=== PATIENT | female | born 1965 | race African-American/Black ===

== ENCOUNTER 2017-10-08 09:21 | Outpatient (CLI) | payer MEDICAID, SELFPAY ==
[2017-10-08 10:15] LABS: Abs Immature Grans 0.01 k/cumm (0.0-0.09); Absolute Basophil Count 0.05 k/cumm (0.0-0.2); Absolute Eosinophil Count 0.46 k/cumm (0.0-0.7); Absolute Lymphocyte Count 3.14 k/cumm (1.2-3.4); Absolute Monocyte Count 0.46 k/cumm (0.11-0.7); Absolute Neutrophil Count 2.39 k/cumm (1.2-6.7); Basophils % 0.8; Eosinophils % 7.1; HCT 38.7 % (36.0-46.0); HGB 12.7 g/dL (12.0-15.5); Immature Grans % 0.2; Lymphocytes % 48.2; Mean Corp. HGB Concentration 32.8 g/dL (32.0-36.0); Mean Corpuscular Hemoglobin 29.5 pg (27.0-33.0); Mean Platelet Volume 11.3 fL (8.0-11.0); Monocytes % 7.1; Neutrophils % 36.6; Platelet Count 236 x1000/uL (130-400); White Blood Cell Count 6.51 k/cumm (4.4-10.8)
[2017-10-08 11:44] LABS: ALT 23 U/L (12-78); AST 15 U/L (15-37); Albumin 3.6 g/dL (3.4-5.0); Alkaline Phosphatase 97 U/L (46-116); Anion Gap 6.1 mmol/L (3-11); BUN 12 mg/dL (7-18); Bilirubin, Total 0.6 mg/dL (0.2-1.0); CO2 30.9 mmol/L (21.0-32.0); CREATININE 0.91 mg/dL (0.55-1.02); Calcium 8.9 mg/dL (8.5-10.1); Chloride 106 mmol/L (98-107); Cholesterol 200 mg/dL (50-200); Glucose 103 mg/dL (70-100); HDL Cholesterol 48 mg/dL (40-60); LDL CHOLESTEROL 142 mg/dL (<100); Potassium 3.7 mmol/L (3.5-5.1); Sodium 143 mmol/L (136-145); TSH (W/Ref FT4) 1.45 uIU/mL (0.358-3.74); Total Protein 7.3 g/dL (6.4-8.2); Triglyceride 96 mg/dL (30-150); Vitamin B12 807 pg/mL (193-986)
[2017-10-08 13:13] LABS: Hemoglobin A1C 6.1 % (4.5-6.2)
[2017-10-09 12:50] LABS: Albumin 55.3 % (55.8-66.1)
== END 2017-10-08 09:22 ==
PROVIDERS: PCP Nurse Practitioner Family; Visit Provider Nurse Practitioner Family
DX: I10 Essential (primary) hypertension (principal); R53.83 Other fatigue; R20.2 Paresthesia of skin; Z13.220 Encounter for screening for lipoid disorders; Z13.1 Encounter for screening for diabetes mellitus
CPT/HCPCS: 36415; 80053; 80061; 83721; 82607; 83036; 84165; 84443; 85025

== ENCOUNTER 2017-10-26 08:12 | Outpatient (CLI) | payer MEDICAID, SELFPAY ==
--- NOTE | 2017-10-26 16:00 | SATEXT_ITS ---
Assessment: Ms. Sal presents for nutritional counseling for impaired fasting glucose. She reports that since she has found out that she has prediabetes she has made some changes in her eating and physical activity. She reports that she used to eat large portions and not many vegetables proportionately on her plate. Her dietary recall shows that some days she has a large bagel for breakfast with peanut butter, then a bagel for lunch, and spaghetti with vegetables for supper. She drinks cucumber juice, green tea, and water. 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 She has also been trying to get her heart rate up for about 20 minutes in the morning. Nutritional Diagnosis: Inappropriate intake of carbohydrates as evidenced by dietary recall. Intervention: We discussed that although she does not have diabetes, her body is insulin resistant and that she may do better with a carbohydrate consistent nutrition therapy. She also may do better with a more moderate carbohydrate intake. We discussed that it may help to regulate her appetite as well. We reviewed carbohydrate counting. Suggested that she work towards keeping her carbohydrate intake to 30 grams per meal. We talked about alternatives to bagels in the morning and we outlined what her meals could look like with 30 grams of carbohydrates. Fortunately, she likes vegetables, so she has many options to fill up her plate. Her is a vegan so she states she may steer herself more towards vegan eating too. I endorsed vegan eating as a very healthy way of eating for prediabetes and overall general health. Monitoring and Evaluation: Ms. Sal will self monitor her progress and will evaluate her nutrition care plan needs. She is encouraged to follow up with me as needed. She has my contact information. Thank you for the referral.
== END 2017-10-26 08:32 ==
PROVIDERS: PCP Nurse Practitioner Family; Visit Provider Dietitian, Registered
DX: R73.01 Impaired fasting glucose (principal); Z71.3 Dietary counseling and surveillance
CPT/HCPCS: 97802

== ENCOUNTER 2017-10-26 08:16 | Outpatient (CLI) | payer MEDICAID, SELFPAY ==
[2017-10-26 09:15] LABS: Anion Gap 6.6 mmol/L (3-11); BUN 20 mg/dL (7-18); CO2 34.4 mmol/L (21.0-32.0); CREATININE 1.01 mg/dL (0.55-1.02); Calcium 9.3 mg/dL (8.5-10.1); Chloride 102 mmol/L (98-107); Estimated GFR 58.02 (mL/min/1.73m2); Glucose 115 mg/dL (70-100); Potassium 3.3 mmol/L (3.5-5.1); Sodium 143 mmol/L (136-145)
== END 2017-10-26 08:36 ==
PROVIDERS: PCP Nurse Practitioner Family; Visit Provider Nurse Practitioner Family
DX: I10 Essential (primary) hypertension (principal)
CPT/HCPCS: 36415; 80048

== ENCOUNTER 2017-10-31 12:26 | Outpatient (CLI) | payer MEDICAID, SELFPAY ==
[2017-11-01 13:54] LABS: Prolactin 4.4 ng/ml
== END 2017-10-31 12:46 ==
PROVIDERS: PCP Nurse Practitioner Family; Visit Provider Nurse Practitioner Family
DX: N64.52 Nipple discharge (principal)
CPT/HCPCS: 36415; 84146

== ENCOUNTER 2018-03-11 09:47 | Day surgery (SDC) | payer MEDICAID, SELFPAY ==
--- NOTE | 2018-03-11 06:38 | COLE_ITS ---
Date of service: 03/11/18 Time of Service: 11:07 Colonoscopy Report Date of procedure: 03/11/18 Pre-op diagnosis general: Colon Cancer Screening Post-op diagnosis procedure note: other (cecal polyp) Procedure: Colonoscopy with polypectomy by cold forceps Surgeon: Yuliet Reis Anesthesia proc note operative: MAC (Sergey Lopez, REEL AND REWINDER OPERATOR/ ASA 2) Estimated blood loss (mL): 2 Pathology: other (cecal polyp) Complications: None Disposition: same day Indications: Mrs Sal is a pleasant 52 year old female who was seen in the office for her first screening colonoscopy. Risks, benefits and complications have been reviewed. Complications include but are not limited to bleeding, pain, perforation, missed small lesion/polyp, sore throat, aspiration and adverse reaction to the medications. Questions were entertained and answered to their satisfaction and they wished to proceed. No guarantees were given or implied. Prep: Miralax/Dulcolax Procedure Start Time: 11:07 Procedure End Time: 11:29 Retraction Time: 12 minutes Findings: One very small polyp in the cecum Procedure Description: After informed consent was obtained the patient was taken to the procedure room and placed in a left decubitous position. Monitors were applied and a time out was done. The patients name, date of , procedure, allergies to medications and metal in their body was reviewed. The patient was then sedated. Once sedated and comfortable a rectal exam was done. External exam was normal. Internal exam revealed a normal sphincter tone and no palpable masses. The scope was then introduced and retro-flexed. No internal hemorrhoids were identified. The scope was then advanced to the cecum without difficulty. The TI and appendiceal orifice were identified. The prep was adequate. The scope was then slowly retracted over 12 minutes back into the rectum. Polyps were removed in the cecum. The scope was removed and the patient was woken up and taken back to Same day surgery in stable condition. The patient tolerated the procedure well and there were no immediate complications. Follow up: The patient should follow up in 5 years unless they develop changes in bowel habits or other new gastrointestinal complaints.
--- NOTE | 2018-03-11 06:38 | W.PM.DSUDISC ---
Discharge Plan Disposition Patient Disposition: HOME Condition: Good Discharge Details Reason For Visit: Colon Cancer Screening Attending Provider: Yuliet Reis Primary Care Provider: Angela Gleason Home Meds and New Rx's Prescriptions: Continued Centrum 18-400 mg-mcg tablet 1 tab PO DAILY RF: 0 ginseng 100 mg capsule 100 mg PO PRN RF: 0 hydrochlorothiazide 25 mg tablet 25 mg PO DAILY Qty: 90 RF: 0 aspirin [Aspir-81] 81 MG tablet,delayed release (DR/EC) 81 mg PO DAILY RF: 0 cholecalciferol (vitamin D3) [Vitamin D3] 2,000 UNIT tablet 2,000 unit PO DAILY RF: 0 Discontinued bisacodyl [Dulcolax (bisacodyl)] 5 mg tablet,delayed release (DR/EC) 5 mg PO ONCE Qty: 4 RF: 0 polyethylene glycol 3350 17 gram/dose powder 255 g PO ONCE Qty: 255 RF: 0 Discharge Instructions Instructions: Colonoscopy (DC), Colorectal Polyps (DC) Additional Instructions: Findings: one small polyp Follow up:5 years Please call if you develop: fevers >101.5 Nausea or Vomiting Abdominal pain that is not transient DAY SURGERY UNIT POST COLONOSCOPY INSTRUCTIONS 1. Because there will be medication in your system for the next 24 hours, you may feel a little sleepy. Your coordination will be affected. Therefore: a. Do not drive or operate dangerous equipment for 24 hours. b. Do not drink alcohol beverages for 24 hours (not even beer). c. Plan to go home and rest for the day. 2. Generally there are no restrictions on your activity after a day or so has gone by, but you may feel a bit fatigued for a few days. 3 After you arrive home you may have a light meal and return to a normal diet as you can tolerate it without feeling sick to your stomach. 4. After surgery, you may feel pain or discomfort. This should be only transient, but if it persists please contact your doctor. 5. If there are any questions regarding the findings of your procedure, please feel free to contact your doctor. 6. If you are unable to contact your doctor with a problem, contact the hospital at [phone]. 7. Continue all your regular medications unless directed otherwise. I understand the above instructions and have no questions. Signature of Patient or Responsible Adult Escort Date/Time Name of Responsible Adult Escort Signature of Nurse Date/Time Activity:: Activity as Tolerated Diet:: As Tolerated Discharge Orders Discharge Orders: Discharge Order (Routine); Ordered 03/11/18 Ordered By: Yuliet Reis DS: Diagnosis Discharge Diagnosis (1) S/P colonoscopy: Status: Acute (2) Polyp of cecum: Status: Acute
[2018-03-11 10:15] VITALS: BP 171/84; PULSE 58; RESP 16; TEMP 35.6; O2SAT 100
[2018-03-11] MEDS: Lactated Ringers 1,000 ML 80 ML IV (10:53)
--- NOTE | 2018-03-11 11:19 | BOWEL_PTH ---
PATIENT: Kyree Yao LOC: [facility] U#:[id number] AGE/SX: 52/F ROOM: RE03/11/[address]: Yuliet Reis MD : [id number] BED: DIS: 03/11/2018 SPEC #: [id number] RECD: 03/11/18 12:27 STATUS: ARTEM REQ #: [id number] DANIELE: 03/11/18 11:[address]: Yuliet Reis DEPT: Surgical Specimen RECD BY: Alejandra Seals ENTERED: 03/11/18 12:27 SP TYPE: Bowel OTHR DR: Angela Gleason APRN Tissues: 1 - BIOPSY BOWEL Procedures: GROSS AND MICRO LEVEL 4 Comments: [id number]
[2018-03-11 13:44] VITALS: BP 139/73; PULSE 54; RESP 14; TEMP 35.9; O2SAT 97
== END 2018-03-11 13:42 | disposition home or self-care (01) ==
LOC: SUR 09:48
PROVIDERS: PCP Nurse Practitioner Family; Visit Provider Surgery
PROC: 0DJD8ZZ Inspection of Lower Intestinal Tract, Via Natural or Artificial Opening Endoscopic (ICD-10-PCS; CPT 45378; principal; 2018-03-11 10:45)
DX: Z12.11 Encounter for screening for malignant neoplasm of colon (principal); D12.0 Benign neoplasm of cecum; I10 Essential (primary) hypertension; G47.33 Obstructive sleep apnea (adult) (pediatric)
CPT/HCPCS: 45380; 88305; J3010

== ENCOUNTER 2018-03-21 01:53 | Outpatient (CLI) | payer MEDICAID, SELFPAY ==
--- NOTE | 2018-03-21 09:00 | DI.RAD_ITS ---
SYMPTOMS/DIAGNOSIS: TENDER STERNAL/CHEST WALL MASS, FURTHER EVALUATION, R22.2, M89.8 PA AND LATERAL CHEST: The heart is normal in size. The lungs are clear. The mediastinal structures and pleura appear intact. CONCLUSION: Normal chest. The patient reportedly has a palpable chest wall abnormality anterior and there is a BB marker placed. If there is a clinical suspicion of a chest wall mass, additional evaluation with a chest CT would be recommended.
== END 2018-03-21 02:13 ==
PROVIDERS: PCP Nurse Practitioner Family; Visit Provider Nurse Practitioner Family
DX: R22.2 Localized swelling, mass and lump, trunk (principal)
CPT/HCPCS: 71046

== ENCOUNTER 2018-03-25 01:32 | Outpatient (CLI) | payer MEDICAID, SELFPAY ==
--- NOTE | 2018-03-25 09:45 | DI.US_ITS ---
SYMPTOM/DIAGNOSIS: RUQ PAIN, R/O HEPATOBILIARY PATHOLOGY R10.11 ABDOMINAL ULTRASOUND: Routine examination. No priors. The visualized liver parenchyma is normal in appearance. There is no evidence of cholelithiasis. The common bile duct is of normal diameter. The pancreas and spleen appear intact. No renal abnormality is seen. The abdominal aorta is of normal diameter. Normal appearance of IVC. CONCLUSION: Normal abdominal ultrasound.
== END 2018-03-25 01:52 ==
PROVIDERS: PCP Nurse Practitioner Family; Visit Provider Nurse Practitioner Family
DX: R10.11 Right upper quadrant pain (principal)
CPT/HCPCS: 76700

== ENCOUNTER 2018-03-26 01:58 | Outpatient (CLI) | payer MEDICAID, SELFPAY ==
--- NOTE | 2018-03-26 13:30 | DI.COMBO_ITS ---
SYMPTOM/DIAGNOSIS: BILAT MILKY DISCHARGE, N64.52, ? CA MAMMOGRAMS AND BILATERAL BREAST ULTRASOUND: Mammograms were interpreted according to the usual protocol including computer analysis with CAD system, tomosynthesis and C view imaging. No priors for comparison. Breast density, Category C. No suspicious masses or microcalcifications are seen. The skin and axilla are unremarkable. A bilateral ultrasound was performed in the retroareolar regions. There are mildly dilated ducts seen in the retroareolar region of the breast bilaterally. No filling defects are seen within the visualized ducts. No cystic or solid masses are seen sonographically. IMPRESSION: No definite evidence for malignancy. If there is further evaluation warranted, ductography may be considered. Category 1. The findings were discussed with the patient on the date of the examination. SA ASSESSMENT OF FINDINGS: Negative. Category 1. Patient will receive a letter notifying them of these results. Bi-RADS category C. The breasts are heterogeneously dense, which may obscure small masses.
== END 2018-03-26 02:18 ==
PROVIDERS: PCP Nurse Practitioner Family; Visit Provider Nurse Practitioner Family
DX: N64.52 Nipple discharge (principal); N60.81 Other benign mammary dysplasias of right breast; N60.82 Other benign mammary dysplasias of left breast
CPT/HCPCS: 76642; 77062; 77066; G0279

== ENCOUNTER 2018-03-28 11:08 | Outpatient (CLI) | payer MEDICAID, SELFPAY ==
[2018-03-28 11:37] LABS: Abs Immature Grans 0.01 k/cumm (0.0-0.09); Absolute Basophil Count 0.06 k/cumm (0.0-0.2); Absolute Eosinophil Count 0.25 k/cumm (0.0-0.7); Absolute Lymphocyte Count 3.07 k/cumm (1.2-3.4); Absolute Monocyte Count 0.35 k/cumm (0.11-0.7); Absolute Neutrophil Count 2.76 k/cumm (1.2-6.7); Basophils % 0.9; Eosinophils % 3.8; HGB 12.2 g/dL (12.0-15.5); Immature Grans % 0.2; Lymphocytes % 47.2; Mean Corpuscular Hemoglobin 29.1 pg (27.0-33.0); Mean Corpuscular Volume 88.3 fL (80-95); Mean Platelet Volume 10.7 fL (8.0-11.0); Monocytes % 5.4; Neutrophils % 42.5; Platelet Count 260 x1000/uL (130-400); RBC 4.19 m/cumm (4.00-5.20); RBC Distribution Width 13.3 % (11.7-14.6)
[2018-03-28 12:44] LABS: ALT 16 U/L (12-78); AST 13 U/L (15-37); Albumin 3.6 g/dL (3.4-5.0); Alkaline Phosphatase 94 U/L (46-116); Anion Gap 6.9 mmol/L (3-11); BUN 16 mg/dL (7-18); Bilirubin, Total 0.3 mg/dL (0.2-1.0); CO2 34.1 mmol/L (21.0-32.0); CREATININE 0.86 mg/dL (0.55-1.02); Chloride 102 mmol/L (98-107); Glucose 108 mg/dL (70-100); Lipase 101 U/L (73-393); Potassium 3.4 mmol/L (3.5-5.1); Sodium 143 mmol/L (136-145); Total Protein 7.3 g/dL (6.4-8.2)
[2018-03-28 13:11] LABS: Calcium 9.2 mg/dL (8.5-10.1)
== END 2018-03-28 11:28 ==
PROVIDERS: PCP Nurse Practitioner Family; Visit Provider Nurse Practitioner Family
DX: R10.11 Right upper quadrant pain (principal)
CPT/HCPCS: 36415; 80053; 83690; 85025

== ENCOUNTER 2018-04-11 01:01 | Outpatient (CLI) | payer MEDICAID, SELFPAY ==
--- NOTE | 2018-04-11 07:43 | DI.CT_ITS ---
SYMPTOMS/DIAGNOSIS: BOTTOM STERNAL VS UPPER ABD PALPABLE MASS, EPIGASTRIC ABD PAIN, BREAST DISCHARGE, MASS STERNUM, ABD WALL MASS, R10.13, M64.52, R19.06, M89.9 CT OF THE CHEST, ABDOMEN AND PELVIS: A marker was placed over the area of the palpable abnormality at the lower sternum. No mass is identified. The xiphoid projects anteriorly. No abdominal wall hernias are seen. The heart size is normal. No mass, infiltrate, pleural or pericardial effusion is seen. The lungs are expiratory. A small circumscribed nodule is seen in the right upper lobe, likely a granuloma. The liver, gallbladder, spleen, pancreas, kidneys and adrenals are unremarkable. No bowel dilatation or inflammatory changes are seen. The uterus is enlarged and heterogeneous. This could represent fibroids. The ovaries and bladder are unremarkable. IMPRESSION: 1. The xiphoid process projects anteriorly which may account for the perceived palpable abnormality. There is no evidence of mass. 2. Enlarged heterogenous uterus likely reflecting fibroids.
[2018-04-11] MEDS: Breeza Beverage 473 ML BTL PO ×2 (09:04→09:05)
[2018-04-11] MEDS: Omnipaque 350 MG/ML 100 ML BTL IV (09:05)
[2018-04-11] MEDS: Omnipaque 350 MG/ML 50 ML BTL PO (09:05)
== END 2018-04-11 01:21 ==
PROVIDERS: PCP Nurse Practitioner Family; Visit Provider Nurse Practitioner Family
DX: R10.13 Epigastric pain (principal); R19.06 Epigastric swelling, mass or lump; N64.52 Nipple discharge; M89.9 Disorder of bone, unspecified; R91.1 Solitary pulmonary nodule; N85.2 Hypertrophy of uterus
CPT/HCPCS: 74177; 71260; J3490; Q9967

== ENCOUNTER 2018-04-13 15:51 | Emergency (ER) | payer MEDICAID, SELFPAY ==
[2018-04-13 15:55] VITALS: BP 165/81; PULSE 75; RESP 16; TEMP 36.6; O2SAT 100
--- NOTE | 2018-04-13 16:15 | ED.GENADUL_ITS ---
Discharge Plan Disposition Patient Disposition: HOME Condition: Stable Discharge Details Chief Complaint: Cellulitis Clinical Impression: Candidal dermatitis Primary Care Provider: Angela Gleason ED Provider: Brian Garland Home Meds and New Rx's Prescriptions: No Action Centrum 18-400 mg-mcg tablet 1 tab PO DAILY RF: 0 ginseng 100 mg capsule 100 mg PO PRN RF: 0 hydrochlorothiazide 25 mg tablet 25 mg PO DAILY Qty: 90 RF: 0 aspirin [Aspir-81] 81 MG tablet,delayed release (DR/EC) 81 mg PO DAILY RF: 0 cholecalciferol (vitamin D3) [Vitamin D3] 2,000 UNIT tablet 2,000 unit PO DAILY RF: 0 Discharge Instructions Instructions: Skin Yeast Infection (ED) Additional Instructions: Please use the provided cream on the affected area twice daily for the next week. Return immediately to the emergency department for any significant worsening of your symptoms, fever chills, or further concerns. If not improving over the next couple days on the medication but no significant worsening of symptoms it is recommended that you follow-up with your primary care provider for reassessment Referrals: Angela Gleason, DIGITAL PRE PRESS OPERATOR [Primary Care Provider] - (As needed for reassessment) Discharge Data Discharge Date/Time-TO BE ENTERED AT DEPARTURE: 04/13/18 17:06 Medical Decision Making Patient presenting to the emergency department for chief complaint of upper thigh and lower abdominal rash. Patient states that this started approximately 3 days ago and is itching and burning. Patient denies any new soaps lotions or medications, patient denies any vaginal or urinary complaints, no nausea vomiting diarrhea. Physical exam shows erythema to the anterior aspects of the thighs and suprapubic region also underneath abdominal fold. No well demarcation is noted and no other findings are seen on exam with normal external genitalia. Findings are suggestive of candidal dermatitis. Fingerstick was performed and no significant hyperglycemia is noted. Patient was prescribed clotrimazole to use on area of discomfort twice a day for the next week and to return for any new or significant worsening of symptoms or to follow-up with primary care for reassessment. Return precautions were discussed. After discussion of diagnosis and plan of care patient has no further needs, questions, or concerns and states clear understanding to return to the emergency department for any worsening symptoms. HPI General Mode of arrival: ambulatory . Date/Time Provider Initiated Documentation: 04/13/18 15:52 . Limitations to Documentation: no limitations . Information obtained by: patient and RN notes reviewed . History of Present Illness 52 year old F presents to the emergency department with the chief complaint of rash, described as mild, with intensity rated at 5. Quality is described as burning, and is localized to the genitals (groin and superpubic). Patient started experiencing this day(s) (3) and it has been c onstant. Patient did receive the following treatments prior to arrival, none Related Data Home Medications Medication Instructions Recorded Confirmed aspirin [Aspir 81] 81 mg PO DAILY 05/18/17 04/13/18 cholecalciferol (vitamin D3) 2,000 unit PO DAILY 05/18/17 04/13/18 [Vitamin D3] multivitamin-ferrous 1 tab PO DAILY 10/31/17 04/13/18 fumarate-folic acid 18 mg-400 mcg tablet ginseng 100 mg capsule 100 mg PO PRN cap 01/30/18 04/13/18 hydrochlorothiazide 25 mg tablet 25 mg PO DAILY #90 tab-cap 02/27/18 04/13/18 Previous Rx's Medication Instructions Recorded hydrochlorothiazide 25 mg tablet 25 mg PO DAILY #90 tab-cap 02/27/18 Allergies Allergy/AdvReac Type Severity Reaction Status Date / Time acetaminophen [From Tylenol] AdvReac Intermediate Headache/[place] Verified 04/13/18 16:00 Tight extra strength General Stated Complaint: Cellulitis AISHA: 4 Review of Systems Constitutional Denies chills and Denies fever(s) ENT Denies lip swelling, Denies throat swelling and Denies tongue swelling Cardiovascular Denies chest pain and Denies dyspnea Respiratory Denies dyspnea Gastrointestinal Denies abdominal pain Integumentary/Breasts Reports as per HPI and Reports pruritus Allergic/Immunologic Denies lip swelling, Denies throat swelling and Denies tongue swelling [facility] Medical History Polyp of cecum (Inactive ~03/11/18) Witnessed apneic spells (Chronic 10/03/17) Snoring (Chronic 10/03/17) IFG (impaired fasting glucose) (Chronic 10/10/17) Hyperlipidemia (Chronic 10/10/17) Essential hypertension (Chronic) Dysmenorrhea (Chronic) Dysgeusia (Chronic) Diffuse cystic mastopathy of both breasts (Chronic) Depression with anxiety (Chronic) Chronic tension type headache (Chronic) Anxiety and depression Chronic headaches Dysmenorrhea HTN (hypertension) Surgical History S/P colonoscopy (Resolved ~03/11/18) Family History Mother Diabetes Essential hypertension Father Heart disease Sister Neoplasm Sister No problems noted. Brother No problems noted. Brother No problems noted. Daughter Heart disease Social History adopted: No caregiver/support person: No foster care: No household members: spouse lives independently: Yes number of children: 3 highest education level completed: 11th grade service: No current occupational status: employed current occupation: House cleaning pets and animals: No Hx Recent Travel: No sexually active: Yes do you think of yourself as: straight/heterosexual current gender identity: female well-balanced diet: daily or most days what type of physical activity do you participate in: walking duration: 15-30 minutes/day Smoking and Tabacco status: Never second hand exposure: Yes alcohol intake: former substance use type: does not use Exam Const General: cooperative, comfortable and no acute distress Orientation: alert and awake HENMT Face and sinus: normal facial exam Resp Effort & Inspection: normal respiratory effort and able to speak in complete sentences External Female Exam: external appearance normal, no erythema, no tenderness externally, no external swelling and no lesions Skin General skin exam: erythema (To superior aspects of the thighs and underneath the abdominal fold) Course Vital Signs Temperature 36.6 C 04/13/18 15:55 Pulse 75 04/13/18 15:55 Respiratory Rate 16 04/13/18 15:55 Blood Pressure 165/81 H 04/13/18 15:55 Pulse Oximetry 100 04/13/18 15:55 Temperature 36.6 C 04/13/18 15:55 Temperature Source Skin 04/13/18 15:55 Pulse 75 04/13/18 15:55 Respiratory Rate 16 04/13/18 15:55 Respiratory Effort Non-Labored 04/13/18 15:59 Blood Pressure 165/81 H 04/13/18 15:55 Pulse Oximetry 100 04/13/18 15:55 Pain Level 5 04/13/18 15:55
[2018-04-13] MEDS: Clotrimazole 1% 15 GM TUBE TP (16:48)
== END 2018-04-13 17:06 | disposition home or self-care (01) ==
PROVIDERS: Emergency Provider Nurse Practitioner Family; PCP Nurse Practitioner Family
DX: B37.2 Candidiasis of skin and nail (principal); I10 Essential (primary) hypertension
CPT/HCPCS: 36416; 82962; 99283

== ENCOUNTER 2018-07-05 09:22 | Outpatient (CLI) | payer MEDICAID, SELFPAY ==
[2018-07-05 10:05] LABS: HCT 38.6 % (36.0-46.0); HGB 12.7 g/dL (12.0-15.5)
[2018-07-05 12:49] LABS: Potassium 2.9 mmol/L (3.5-5.1)
== END 2018-07-05 09:42 ==
PROVIDERS: PCP Nurse Practitioner Family; Visit Provider Nurse Practitioner Family
DX: E61.1 Iron deficiency (principal); E87.6 Hypokalemia
CPT/HCPCS: 36415; 84132; 85014; 85018

== ENCOUNTER 2018-07-11 13:36 | Outpatient (CLI) | payer MEDICAID, SELFPAY | END 2018-07-11 13:56 | PROVIDERS: PCP Nurse Practitioner Family; Visit Provider Nurse Practitioner Family | DX: E87.6 Hypokalemia (principal) | CPT/HCPCS: 36415; 82950; 84132 ==

== ENCOUNTER 2018-08-15 19:42 | Emergency (ER) | payer MEDICAID, SELFPAY ==
[2018-08-15] VITALS (32 sets, daily range): BP systolic 99–169; BP diastolic 50–127; PULSE 70–133; RESP 10–48; TEMP 36.7; O2SAT 90–100
[2018-08-15] MEDS: Haloperidol 5 MG/ML VIAL IM/IV (19:50)
[2018-08-15] MEDS: LORazepam 2 MG/ML VIAL (19:50)
[2018-08-15] MEDS: Normal Saline 1,000 ML 1000 ML IV (20:05)
[2018-08-15] MEDS: LORazepam 2 MG/ML VIAL IVP (20:25)
[2018-08-15] MEDS: diphenhydrAMINE 50 MG/ML VIAL IM (20:34)
[2018-08-15 20:50] LABS: Abs Immature Grans 0.02 k/cumm (0.0-0.09); Absolute Basophil Count 0.06 k/cumm (0.0-0.2); Absolute Eosinophil Count 0.25 k/cumm (0.0-0.7); Absolute Lymphocyte Count 8.04 k/cumm (1.2-3.4); Absolute Neutrophil Count 2.71 k/cumm (1.2-6.7); Basophils % 0.5; Eosinophils % 2.1; HCT 39.6 % (36.0-46.0); Immature Grans % 0.2; Lymphocytes % 68.9; Mean Corp. HGB Concentration 32.8 g/dL (32.0-36.0); Mean Corpuscular Hemoglobin 28.6 pg (27.0-33.0); Mean Corpuscular Volume 87.2 fL (80-95); Mean Platelet Volume 11.3 fL (8.0-11.0); Monocytes % 5.1; Neutrophils % 23.2; Platelet Count 262 x1000/uL (130-400); RBC 4.54 m/cumm (4.00-5.20); RBC Distribution Width 13.8 % (11.7-14.6); White Blood Cell Count 11.67 k/cumm (4.4-10.8)
[2018-08-15 21:22] LABS: Salicylate < 2.8 mg/dL (2.8-20.0)
[2018-08-15 21:26] LABS: ALT 27 U/L (12-78); AST 11 U/L (15-37); Albumin 3.9 g/dL (3.4-5.0); Alkaline Phosphatase 110 U/L (46-116); Anion Gap 13.9 mmol/L (3-11); BUN 22 mg/dL (7-18); Bilirubin, Total 0.4 mg/dL (0.2-1.0); CO2 26.1 mmol/L (21.0-32.0); CREATININE 1.36 mg/dL (0.55-1.02); Calcium 9.6 mg/dL (8.5-10.1); Chloride 100 mmol/L (98-107); Estimated GFR 40.99 (mL/min/1.73m2); Glucose 179 mg/dL (70-100); Sodium 140 mmol/L (136-145); Total Protein 8.1 g/dL (6.4-8.2)
--- NOTE | 2018-08-15 21:37 | ED.GENADUL_ITS ---
Discharge Plan Disposition Patient Disposition: HOME Condition: Improving Discharge Details Chief Complaint: OD/Poison Clinical Impression: Acute delirium, Agitation, Substance abuse, Acute hypokalemia Primary Care Provider: Angela Gleason ED Provider: Cuate Rodriguez Home Meds and New Rx's Prescriptions: No Action potassium chloride 20 mEq tablet extended release 20 meq PO DAILY Qty: 14 RF: 0 hydrochlorothiazide 25 mg tablet 25 mg PO DAILY Qty: 90 RF: 0 aspirin [Aspir-81] 81 MG tablet,delayed release (DR/EC) 81 mg PO DAILY RF: 0 cholecalciferol (vitamin D3) [Vitamin D3] 2,000 UNIT tablet 2,000 unit PO DAILY RF: 0 Discharge Instructions Additional Instructions: Please do not use drugs. Please contact your primary care physician to arrange follow-up. Be sure to review your medications with your doctor. Return to the ER for any worsening or new concerning symptoms. Referrals: Angela Gleason NP [Primary Care Provider] - Discharge Data Discharge Date/Time-TO BE ENTERED AT DEPARTURE: 08/16/18 11:48 Medical Decision Making <Tristan Stevens DO - Last Filed: 08/18/18 09:01> This is a 52-year-old -[place] female who presents today for evaluation of agitated delirium. She and edible drug earlier today while at a alliance party, her warned her not to but she did in spite of his warnings. Over the next 2 to 3 hours she became notably agitated and delirious, by the time she arrived in the ER she was flailing about, extremely delirious and agitated, tachycardic, and notably confused. She was afebrile, no evidence of nuchal rigidity. No evidence of significant rash or vesicles. Signs and symptoms appear consistent with an agitated delirium secondary to an ingested separate psychotropic agent. Because of the patient's notable agitation delirium we did give 5 of Haldol, and an initial 2 and then a subsequent 2 of Ativan for a total of 4 mg of Ativan, and 50 mg of Benadryl. The patient slowly began to return to a more normal state, and is currently sitting comfortably in bed with a return of her normal heart rate. Still pending work-up and CT scan. We will continue to rehydrate and reassess. 12:30 AM Patient's laboratory work-up has returned, no significant abnormalities aside for a low potassium at 2.5. This is been corrected with 20 mEq of IV potassium and 40 mEq of oral potassium. Salicylates, acetaminophen, and alcohol are negative. Pending UDS. CT scan of the head demonstrates no acute process. Currently the patient is resting comfortably, heart rate has returned to normal, she has notable improvement. We will continue a brief observation. Here in the ED, with likely discharge. Case will be signed out to my colleague Dr. Tamayo for final disposition. EKG 20: 30 Rate 103, intervals normal, sinus tachycardia, nonspecific T wave flattening, no significant ST elevations or depressions. No Q waves. FINDINGS: Brain: No hemorrhage. No significant white matter disease. No edema. Ventricles: No ventriculomegaly. Bones/joints: No acute fracture. Sinuses: No acute sinusitis. Mastoid air cells: No mastoid effusion. Soft tissues: No suspicious lesions. IMPRESSION: No acute intracranial findings. Dictated and Authenticated by: Carol Brunner MD. Ordering:CABRERA Hudson MD <Donal Tamayo MD - Last Filed: 08/16/18 21:56> Patient signed out to me after she had presented with agitation and psychosis after eating pot brownies. She had been medicated with Ativan, Haldol and Benadryl to help control her agitation and anxiety. She has been sleeping all night for me. She did get up to go to the bathroom but required assistance and had to be brought back to the room in a wheelchair. She is still completely sedated this morning. She does respond to name and does know that she is in the hospital. She is unable to keep her eyes open to carry on conversation beyond that. She will likely need to stay here longer until the sedation has worn off enough that she is safe for discharge. Her labs were unremarkable other than a very low potassium at 2.5. She did receive IV replacement last night. We will recheck this morning. Will sign out to oncoming physician. Lab Data Lab results reviewed: Yes I reviewed the patient's lab results. <Cuate Rodriguez MD - Last Filed: 08/27/18 09:39> Care signed out by Dr. Tamayo at 8 AM. Plan at signout was to reassess patient for disposition, recheck potassium. Labs reviewed and potassium normalized. Patient observed further this morning the emergency department. She became more alert and oriented. She tolerated full breakfast and was able to ambulate without difficulty. Patient discharged home with her . Usual and customary discharge instructions were provided. HPI <Tristan Stevens DO - Last Filed: 08/18/18 09:01> General Date/Time Provider Initiated Documentation: 08/15/18 19:45 . HPI Narrative: This is a 52-year-old -[place] female who presents today for evaluation of adverse drug reaction. The patient was at a alliance party and she ate a bit of an edible cooked brownie. Her who is familiar with this recommended that she did not eat this as it causes hallucinations, notable confusion. In spite of this though she did eat this. This was 3 hours prior to arrival. After she ate it she gradually had increasing anxiety, confusion, and agitated delirium. She is brought here now screaming and yelling about different nonrelated things. The who is at bedside states that most people have these symptoms after they take the edible. Right now the patient is unable to answer any questions clearly. She will follow directions. She is moving all extremities. She does seem to respond to commands. No other modifying factors. The patient denies any significant past medical history of schizophrenia, previous homicidal or suicidal thoughts, or other abnormality or concerning past medical history. Related Data Home Medications Medication Instructions Recorded Confirmed aspirin [Aspir 81] 81 mg PO DAILY 05/18/17 08/21/18 cholecalciferol (vitamin D3) 2,000 unit PO DAILY 05/18/17 08/21/18 [Vitamin D3] hydrochlorothiazide 25 mg tablet 25 mg PO DAILY #90 tab-cap 05/29/18 08/21/18 potassium chloride 20 mEq 20 meq PO DAILY #14 tab-cap 08/21/18 08/21/18 tablet,extended release Previous Rx's Medication Instructions Recorded hydrochlorothiazide 25 mg tablet 25 mg PO DAILY #90 tab-cap 05/29/18 potassium chloride 20 mEq 20 meq PO DAILY #14 tab-cap 08/21/18 tablet,extended release Allergies Allergy/AdvReac Type Severity Reaction Status Date / Time acetaminophen [From Tylenol] AdvReac Intermediate Headache/[place] Verified 08/21/18 13:57 Tight extra strength General Stated Complaint: OD/Poison AISHA: 2 Review of Systems <Tristan Stevens DO - Last Filed: 08/18/18 09:01> Review of Systems All systems reviewed & are unremarkable except as noted in HPI and below PFSH <Tristan Stevens DO - Last Filed: 08/18/18 09:01> Social History Smoking/Tobacco Use Status: Never Second Hand Exposure: Yes Alcohol Intake: former Drug use: Never Substance use type: does not use Details: ate marijuana brownies 08/15/18 bad reaction Adopted: No Caregiver/Support person: No Foster care: No Household members: spouse Number of Children: 3 Communication Needs: None current occupation: House cleaning Pets and animals: No Sexually active: Yes Do you think of yourself as: straight/heterosexual Current gender identity: female What type of physical activity do you participate in: walking Duration: 15-30 minutes/day Do you feel safe at home: Yes Do you feel safe in your relationship?: Yes Exam <Tristan Stevens DO - Last Filed: 08/18/18 09:01> Narrative Exam Narrative: 1.Const: Well-nourished, Well-developed, appearing stated age 2.Eyes: PERRL, no conjunctival injection, and symmetrical lids. 3.ENT: Atraumatic external nose and ears. Dry MM. Neck: Symmetric, trachea midline, No thyromegaly. 4.CVS: +S1/S2, No murmurs or gallops. Peripheral pulses 2+ and equal in all extremities. Brisk capillary refill in all extremities. 5.RESP: Unlabored respiratory effort. Clear to auscultation bilaterally. No wheezes rales or rhonchi 6.GI: Soft, Nontender/Nondistended, No hepatosplenomegaly. No guarding or rebound. 7.MSK: Normocephalic/Atraumatic, Extremities w/o deformity or ttp No cyanosis or clubbing, Normal movement of all extremities 8.Skin: Warm, Dry. No rashes or lesions. 9.Neuro: marketing analyst II-XII grossly intact. Sensation grossly intact, no focal neurologic deficits. 10.Psych: Extremely agitated and delirious, screaming yelling and flailing all extremities throughout. She is describing things from [place], as well as claiming multiple other things. She is notably dangerous to herself and staff. Extremely agitated Course <Tristan Stevens DO - Last Filed: 08/18/18 09:01> Vital Signs Temperature 36.7 C 08/15/18 19:50 Pulse 133 H 08/15/18 19:50 Respiratory Rate 48 H 08/15/18 19:50 Blood Pressure 144/108 H 08/15/18 19:50 Pulse Oximetry 100 08/15/18 19:50 Temperature 36.7 C 08/15/18 19:50 Pulse 101 H 08/15/18 20:54 Respiratory Rate 18 08/15/18 20:54 Respiratory Effort 08/15/18 20:28 Respiratory Depth Shallow 08/15/18 20:28 Respiratory Pattern Tachypnea 08/15/18 20:28 Blood Pressure 134/64 08/15/18 20:54 Pulse Oximetry 96 08/15/18 20:54 Oxygen Delivery Method Room Air 08/15/18 20:54 Oxygen Flow Rate 0 08/15/18 20:54 Lab/Test Results Lab/Test Results: Laboratory Tests Range/Units 08/15/18 20:05 WBC (4.4-10.8) k/cumm 11.67 H RBC (4.00-5.20) m/cumm 4.54 Hgb (12.0-15.5) g/dL 13.0 Hct (36.0-46.0) % 39.6 MCV (80-95) fL 87.2 MCH (27.0-33.0) pg 28.6 MCHC (32.0-36.0) g/dL 32.8 RDW (11.7-14.6) % 13.8 Plt Count (130-400) x1000/uL 262 MPV (8.0-11.0) fL 11.3 H Sign Out <Tristan Stevens DO - Last Filed: 08/18/18 09:01> Sign Out Data: Sign Out Comment: Pending continued observation, post illicit substance use. Expectant discharge after observation. Last updated by Tristan Stevens DO at 08/16/18 00:33 Sign Out Comment: Still quite sedated from medications last night. Attempted ambulation but not safe. Signed over to Dr. Rodriguez for reevaluation when more awake. Last updated by Donal Tamayo MD at 08/16/18 07:56
[2018-08-15 21:38] LABS: Diff Comment Diff Reviewed; RBC Morphology Normal
[2018-08-15 21:41] LABS: Potassium 2.5 mmol/L (3.5-5.1)
[2018-08-15 22:00] LABS: Acetaminophen < 2 ug/mL (10-30)
[2018-08-15 22:01] LABS: ETHANOL BLOOD < 3.0 mg/dL (<3)
[2018-08-15] MEDS: POTASSIUM CHLORIDE 20 MEQ/100 ML BAG 50 MEQ IVPB (22:34)
--- NOTE | 2018-08-15 23:20 | DI.CT_ITS ---
SYMPTOM/DIAGNOSIS; ALTERED AFTER EATING CANNABIS BROWNIES NONCONTRAST HEAD CT: No intracranial hemorrhage, mass or infarct is seen. The ventricles are normal in size. There is no evidence of skull fracture. The sinuses and mastoid air cells appear clear. IMPRESSION: Negative head CT
--- NOTE | 2018-08-15 23:40 | DI.VRAD_ITS ---
EXAM: CT Head Without Contrast EXAM DATE/TIME: 08/15/2018 19:58 CLINICAL HISTORY: 52 years old, female; Altered mental status/memory loss; Other: AMS after eating cannabis brownie TECHNIQUE: Imaging protocol: Axial computed tomography images of the head without contrast. Coronal and sagittal reformatted images were created and reviewed. Radiation optimization: All CT scans at this facility use at least one of these dose optimization techniques: automated exposure control; mA and/or kV adjustment per patient size (includes targeted exams where dose is matched to clinical indication); or iterative reconstruction. COMPARISON: CT HEAD WITHOUT CONTRAST 05/18/2017 11:03 FINDINGS: Brain: No hemorrhage. No significant white matter disease. No edema. Ventricles: No ventriculomegaly. Bones/joints: No acute fracture. Sinuses: No acute sinusitis. Mastoid air cells: No mastoid effusion. Soft tissues: No suspicious lesions. IMPRESSION: No acute intracranial findings. Dictated and Authenticated by: Carol Brunner MD. Ordering:CABRERA Hudson MD
[2018-08-16] VITALS (102 sets, daily range): BP systolic 105–164; BP diastolic 55–94; PULSE 56–105; RESP 14–31; TEMP 36.7; O2SAT 91–100
[2018-08-16 03:52] LABS: *AMPHETAMINES SCREEN URINE Negative (Negative); *BARBITURATES SCREEN URINE Negative (Negative); *BENZODIAZEPINES SCREEN URINE Negative (Negative); Cannabinoids THC POSITIVE (Negative); Cocaine Screen,Urine Negative (Negative); METHADONE URINE SCREEN Negative (Negative); OPIATES URINE SCREEN Negative (Negative)
[2018-08-16 03:57] LABS: Tricyclic Antidepressants Negative (Negative)
--- NOTE | 2018-08-16 07:57 | NUR.NOTE ---
up to commode--able to answer questions--unsteady on feet--2 assist to transfer to commode.Nursing Note:
[2018-08-16 07:59] LABS: Potassium 3.6 mmol/L (3.5-5.1)
--- NOTE | 2018-08-16 10:12 | NUR.NOTE ---
Nursing Note: PT was able to stand and ambulate to the wheel chair with assistance. Wheel chair locked, at bedside. Tray table and breakfast provided to patient.
--- NOTE | 2018-08-16 11:47 | NUR.NOTE ---
Nursing Note: Vitals stable, Pt able to walk appropriately on her own. MD Rodriguez made aware. Per MD Rodriguez, ok to Discharge.
== END 2018-08-16 11:48 | disposition home or self-care (01) ==
PROVIDERS: Emergency Medicine; Student in an Organized Health Care Education/Training Program; Emergency Provider Student in an Organized Health Care Education/Training Program; PCP Nurse Practitioner Family
DX: F12.921 Cannabis use, unspecified with intoxication delirium (principal); R45.1 Restlessness and agitation; E87.6 Hypokalemia; R00.0 Tachycardia, unspecified; T40.7X1A Poisoning by cannabis (derivatives), accidental (unintentional), initial encounter
CPT/HCPCS: 36415; 80053; 80307; 93005; 96361; 96365; 96372; 96375; 99285; 70450; 80320; 80329; 84132; 85025; 93010; J1200; J1630; J2060; J3480

== ENCOUNTER 2018-09-09 16:19 | Outpatient (CLI) | payer MEDICAID, SELFPAY ==
[2018-09-09 20:00] LABS: Potassium 2.8 mmol/L (3.5-5.1)
== END 2018-09-09 16:39 ==
PROVIDERS: PCP Nurse Practitioner Family; Visit Provider Nurse Practitioner Family
DX: E87.6 Hypokalemia (principal)
CPT/HCPCS: 36415; 84132

== ENCOUNTER 2018-09-13 13:51 | Outpatient (CLI) | payer MEDICAID, SELFPAY ==
[2018-09-13 15:22] LABS: TSH (W/Ref FT4) 1.84 uIU/mL (0.36-3.74)
[2018-09-13 15:33] LABS: Potassium 3.2 mmol/L (3.5-5.1)
[2018-09-16 09:26] LABS: Thyroglobulin Antibody 20 U/mL (<61); Thyroperoxidase Antibody <28 U/mL (<61)
== END 2018-09-13 14:11 ==
PROVIDERS: PCP Nurse Practitioner Family; Visit Provider Nurse Practitioner Family
DX: I10 Essential (primary) hypertension (principal); E87.6 Hypokalemia; R13.10 Dysphagia, unspecified
CPT/HCPCS: 36415; 86376; 84132; 84443

== ENCOUNTER 2018-09-17 00:41 | Outpatient (CLI) | payer MEDICAID, SELFPAY ==
--- NOTE | 2018-09-17 15:23 | DI.US_ITS ---
SYMPTOM/DIAGNOSIS: DYSPHAGIA/ODYNOPHAGIA, NO GI SX, ? GOITER ? R13.10 THYROID ULTRASOUND: The right lobe of the thyroid measures 1.5 x 1.8 x 4.5 cm. The left lobe measures 1.6 x 1.3 x 4.2 cm. The isthmus measures 4 mm in thickness. The overall thyroid echo texture and blood flow appear normal. No solid nodules or cysts are seen. IMPRESSION: Negative thyroid ultrasound.
[2018-09-17 16:43] LABS: Potassium 3.1 mmol/L (3.5-5.1)
== END 2018-09-17 01:01 ==
PROVIDERS: PCP Nurse Practitioner Family; Visit Provider Nurse Practitioner Family
DX: R13.10 Dysphagia, unspecified (principal); E87.6 Hypokalemia
CPT/HCPCS: 36415; 76536; 84132

== ENCOUNTER 2018-09-30 13:34 | Outpatient (CLI) | payer MEDICAID, SELFPAY ==
[2018-09-30 15:02] LABS: Anion Gap 6.9 mmol/L (3-11); BUN 19 mg/dL (7-18); CO2 32.1 mmol/L (21.0-32.0); CREATININE 0.81 mg/dL (0.55-1.02); Calcium 9.1 mg/dL (8.5-10.1); Chloride 106 mmol/L (98-107); Glucose 97 mg/dL (70-100); Potassium 3.2 mmol/L (3.5-5.1); Sodium 145 mmol/L (136-145)
== END 2018-09-30 13:54 ==
PROVIDERS: PCP Nurse Practitioner Family; Visit Provider Nurse Practitioner Family
DX: N28.9 Disorder of kidney and ureter, unspecified (principal)
CPT/HCPCS: 36415; 80048

== ENCOUNTER 2018-11-13 09:40 | Outpatient (CLI) | payer OTHER, SELFPAY ==
[2018-11-13 11:05] LABS: Anion Gap 7.3 mmol/L (3-11); BUN 12 mg/dL (7-18); CO2 32.7 mmol/L (21.0-32.0); CREATININE 0.94 mg/dL (0.55-1.02); Calcium 9.4 mg/dL (8.5-10.1); Chloride 103 mmol/L (98-107); Glucose 111 mg/dL (70-100); Potassium 3.3 mmol/L (3.5-5.1); Sodium 143 mmol/L (136-145)
== END 2018-11-13 10:00 ==
PROVIDERS: PCP Nurse Practitioner Family; Visit Provider Nurse Practitioner
DX: I10 Essential (primary) hypertension (principal); E87.6 Hypokalemia
CPT/HCPCS: 36415; 80048

== ENCOUNTER 2019-02-07 12:06 | Outpatient (CLI) | payer OTHER, SELFPAY ==
[2019-02-07 13:25] LABS: Anion Gap 5.6 mmol/L (3-11); BUN 16 mg/dL (7-18); CO2 35.4 mmol/L (21.0-32.0); CREATININE 0.82 mg/dL (0.55-1.02); Calcium 9.9 mg/dL (8.5-10.1); Chloride 103 mmol/L (98-107); Glucose 103 mg/dL (74-106); Potassium 3.4 mmol/L (3.5-5.1); Sodium 144 mmol/L (136-145)
== END 2019-02-07 12:26 ==
PROVIDERS: PCP Nurse Practitioner Family; Visit Provider Nurse Practitioner Family
DX: I10 Essential (primary) hypertension (principal); E87.6 Hypokalemia
CPT/HCPCS: 36415; 80048

== ENCOUNTER 2019-05-13 21:49 | Inpatient (IN) | payer OTHER, SELFPAY ==
[2019-05-13 22:15] VITALS: BP 182/76; PULSE 69; RESP 16; TEMP 36.7; O2SAT 97
--- NOTE | 2019-05-13 22:39 | ED.GENADUL_ITS ---
Discharge Plan Disposition Patient Disposition: [facility] INPATIENT Condition: Stable Discharge Details Chief Complaint: FlankPain Clinical Impression: Acute appendicitis Primary Care Provider: Angela Gleason ED Provider: Maura Haskins Home Meds and New Rx's Prescriptions: No Action cyclobenzaprine 10 mg tablet 10 mg PO HS PRN (Reason: muscle spasm) Qty: 30 RF: 3 omega-3 fatty acids 1 each PO DAILY RF: 0 metoprolol succinate 25 mg tablet extended release 24 hr 25 mg PO DAILY Qty: 90 RF: 3 potassium chloride 20 mEq tablet extended release 20 meq PO DAILY Qty: 90 RF: 3 hydrochlorothiazide 25 mg tablet 25 mg PO DAILY Qty: 90 RF: 0 magnesium gluconate 27.5 mg magne- sium (500 mg) tablet 27.5 mg PO BID RF: 0 cholecalciferol (vitamin D3) [Vitamin D3] 2,000 UNIT tablet 2,000 unit PO DAILY RF: 0 Medical Decision Making Is a 53-year-old patient presenting to the emergency room for complaints of right flank pain with radiating pain toward the right upper quadrant. Patient reports pain began after eating salty chips. Patient was in the kitchen cooking food and reported 10 out of 10 pain. During painful episode patient did report mild nausea and associated heart racing. Patient denies any chest pain. Patient denies any vomiting. Patient does report for the last 2 months she has had similar episodes after eating salty or fatty foods. However previous episodes have been more mild compared to today's episode. Patient reports initial pain was 10 out of 10 now improved to approximately 5 out of 10. Pat ient denies any cough, difficulty breathing or shortness of breath. Patient did report mild lightheadedness during onset of sharp pain. Patient denies any persistent lightheadedness at this time. Patient denies any dysuria, urgency or frequency. I suspect possible cholecystitis, based on her history of intermittent episodic pain after eating fatty or salty foods in addition to the right back and right upper quadrant pain elicited on exam. Patient did have bilateral CVA tenderness which was mild however no complaints of dysuria will plan to check urinalysis. Patient does not appear systemically ill at this time. Patient was offered pain medication but declines that she is more comfortable and pain is tolerable. Patient denies any fever, upper respiratory symptoms or cough recently therefore I do not suspect Covid in this patient. Plan to check CT of abdomen, labs and urinalysis. We will hydrate with 1 L of IV fluid normal saline at this time. EKG done on arrival due to patient's initial complaints reveals a heart rate of 68. Sinus rhythm. Nonspecific flattening of T waves is noted. No ST segment elevation RI. When compared to previous EKG there is no significant change. This was reviewed with Shane Osman. CT reveals findings favoring mild acute uncomplicated appendicitis and a retrocecal appendix. Patient's gallbladder appears normal, no ductal dilation. There is mild hepatic parenchymal density consistent with fatty liver. Simple right renal cyst is noted otherwise unremarkable with no obstructive uropathy. No obvious bowel obstruction. Patient's white blood cell count noted to be 9.62 with no significant shift. Patient's potassium noted to be 2.8. Patient does typically take potassium supplement orally however she has been noncompliant in the last few days. Patient takes potassium due to her use of HCTZ. Patient has been notably hypokalemic in the past. Will provide 20 mEq of potassium at this time. Will place patient on front desk monitor. Spoke with Dr. Tai of surgery who would prefer me to write admission orders at this time including Zosyn 3.375 every 6 hours, LR 125 mg an hour, Toradol 30 mg IV every 6 hours as needed, Zofran 4 mg IV every 8 hours as needed, morphine 2 mg every hour as needed pain. N.p.o. after midnight. She will evaluate the patient in the morning. This plan was discussed with the patient who agrees with plan of admission and reports her understanding of appendicitis. Patient's vital signs remained stable. Patient does have mild noted hypertension however she has no symptoms of hypertensive emergency or urgency at this time. Patient remained stable. Will hang initial dose of antibiotics in the emergency room. Will begin LR at 125 mL's per hour. Due to nurse staffing in the hospital there is no current available med surge bed. Patient will be held in the emergency room until bed becomes available. Patient will be signed out to Dr. Shane Osman. HPI General Date/Time Provider Initiated Documentation: 05/13/19 21:50 . HPI Narrative: This is a 53-year-old patient presenting to the emergency room with complaints of right flank pain. Patient reports onset of flank pain this afternoon while she was cooking. She did have chips prior to onset of flank pain. Patient reports right flank pain with radiating pain around to the anterior right upper quadrant of her abdomen. Patient reports very sharp pain at that time reports 10 out of 10 pain. Patient does report sensation of palpitations during that time but denies any associated chest pain. Patient did report mild lightheadedness. Patient denies any fevers, chills. She does report similar pain in the past she has had intermittent episodes of similar pain which were less severe over the last 2 months she notices them after eating salty or fatty foods. Patient reports at this time her pain is somewhat improved to a 5 out of 10. Patient denies any nausea or vomiting at this time but does report history of nausea with previously described painful episodes over the last 2 months. Patient denies any dysuria, urgency or frequency. Denies any hematuria. Denies any change in her bowels. Has had 3 normal bowel movements today. Patient denies any cough, difficulty breathing or shortness of breath or wheezing. Patient has no other concerning complaints at this time. Related Data Home Medications Medication Instructions Recorded Confirmed cholecalciferol (vitamin D3) 2,000 unit PO DAILY 05/18/17 05/12/19 [Vitamin D3] cyclobenzaprine 10 mg tablet 10 mg PO HS PRN #30 tab 11/13/18 05/12/19 hydrochlorothiazide 25 mg tablet 25 mg PO DAILY #90 tab-cap 04/04/19 05/12/19 magnesium gluconate 27.5 mg 27.5 mg PO BID 04/08/19 05/12/19 magnesium (500 mg) tablet metoprolol succinate 25 mg 25 mg PO DAILY #90 tab-cap 05/12/19 05/12/19 tablet,extended release 24 hr omega-3 fatty acids 1 each PO DAILY 05/12/19 05/12/19 potassium chloride 20 mEq 20 meq PO DAILY #90 tab-cap 05/12/19 05/12/19 tablet,extended release Previous Rx's Medication Instructions Recorded cyclobenzaprine 10 mg tablet 10 mg PO HS PRN #30 tab 11/13/18 hydrochlorothiazide 25 mg tablet 25 mg PO DAILY #90 tab-cap 04/04/19 metoprolol succinate 25 mg 25 mg PO DAILY #90 tab-cap 05/12/19 tablet,extended release 24 hr potassium chloride 20 mEq 20 meq PO DAILY #90 tab-cap 03/30/20 tablet,extended release Allergies Allergy/AdvReac Type Severity Reaction Status Date / Time acetaminophen [From Tylenol] AdvReac Intermediate Headache/[place] Verified 23:48 Tight extra strength lisinopril AdvReac Headache Verified 05/13/19 22:21 General Stated Complaint: FlankPain AISHA: 3 Review of Systems All systems reviewed & are unremarkable except as noted in HPI and below Constitutional Constitutional: Denies chills, Denies fatigue, Denies fever(s), Reports headache(s) (Baseline intermittent tension headaches described unchanged), Denies malaise and Denies poor appetite ENT Ears, Nose, Mouth, and Throat: Reports headache(s) (Baseline intermittent tension headaches described unchanged), Denies nasal congestion and Denies sore throat Cardiovascular Cardiovascular: Denies chest pain, Denies diaphoresis, Denies syncope, Reports rapid heart rate, Reports lightheadedness and Denies dyspnea Respiratory Respiratory: Denies cough, Denies dyspnea and Denies wheezing Gastrointestinal Gastrointestinal: Reports abdominal pain (Right upper quadrant), Denies diarrhea, Reports nausea (Resolved) and Denies vomiting Genitourinary Genitourinary: Denies hematuria, Denies difficulty voiding and Reports urinary urgency Comments: Right flank pain. No dysuria Neurologic Neurologic: Denies syncope and Reports headache(s) (Baseline intermittent tension headaches described unchanged) Endocrine Endocrine: Denies fatigue Allergic/Immunologic Allergic/Immunologic: Denies wheezing COUNT INCLUDES THE [facility] Medical History Anxiety and depression (Chronic) Breast discharge (Chronic) 04/11/2018 [facility] consult: normal, monitor Chronic tension type headache (Chronic) Diffuse cystic mastopathy of both breasts (Chronic) Dysgeusia (Resolved) Dysmenorrhea (Chronic) H/o iron deficiency with menses Essential hypertension (Chronic) Hyperlipidemia (Chronic 10/10/17) 09/2017 labs: 10-year ASCVD risk = ~5.9% --> no statin indicated at this time Hypokalemia (Chronic) IFG (impaired fasting glucose) (Chronic 10/10/17) Polyp of cecum (Inactive ~03/11/18) Uterine fibroid (Chronic) Pt reports h/o, also seen on 04/11/2018 CT Social History (Reviewed 05/13/19 @ 22:47 by ABDULLAHI Kimbrough Smoking/Tobacco Use Status: Never Second Hand Exposure: Yes Alcohol Intake: former Drug use: Never Substance use type: does not use Details: ate marijuana brownies 08/15/18 bad reaction Adopted: No Caregiver/Support person: No Foster care: No Household members: spouse Number of Children: 3 Communication Needs: None current occupation: House cleaning Pets and animals: No Sexually active: Yes Do you think of yourself as: straight/heterosexual Current gender identity: female What type of physical activity do you participate in: walking Duration: 15-30 minutes/day Do you feel safe at home: Yes Do you feel safe in your relationship?: Yes Exam Narrative Exam Narrative: CONST: Healthy appearing patient, in no acute distress. Well hydrated. Alert and oriented. HENMT: Head nomocephalic, normal to inspection. Atraumatic. Hearing grossly no rmal. EYES: General normal appearance. Alignment normal. Eyelids normal. Conjunctiva normal. NECK: Normal visual inspection. FROM. Trachea midline. No Midline tenderness. CHEST: Normal insepection of the chest. RESP: Normal respiratory effort. Speaking full sentences. No cough. No audible wheezing. No retractions. Breath sounds clear, full and equal bilaterally. CARDIO: No JVD. No murmur, regular rate and rhythm. GI: Bowel sounds are present in all 4 quadrants. Abdomen is soft. Moderate right upper quadrant tenderness noted on exam. No obvious peritoneal signs, rebound or guarding. Back: Mild bilateral CVA tenderness noted. MUSCULOSKELETAL: Normal Gait. FROM of all extremities. SKIN: Normal. Dry. No rashes. NEURO: Alert and awake. Speech clear. PSYCH: Normal affect. Cooperative. Course Vital Signs Vital signs: Vital Signs Temperature 36.7 C 05/13/19 22:15 Pulse 69 05/13/19 22:15 Respiratory Rate 16 05/13/19 22:15 Blood Pressure 182/76 H 05/13/19 22:15 Pulse Oximetry 97 05/13/19 22:15 Temperature 36.7 C 05/13/19 22:15 Pulse 69 05/13/19 22:15 Respiratory Rate 16 05/13/19 22:15 Respiratory Effort 05/13/19 22:20 Blood Pressure 182/76 H 05/13/19 22:15 Blood Pressure Position Supine 05/13/19 22:15 Pulse Oximetry 97 05/13/19 22:15 Oxygen Delivery Method Room Air 05/13/19 22:15 Oxygen Flow Rate 0 05/13/19 22:15 Pain Level 5 05/13/19 22:20
[2019-05-13 22:46] LABS: Abs Immature Grans 0.02 k/cumm (0.0-0.09); Absolute Basophil Count 0.05 k/cumm (0.0-0.2); Absolute Eosinophil Count 0.25 k/cumm (0.0-0.7); Absolute Lymphocyte Count 4.88 k/cumm (1.2-3.4); Absolute Monocyte Count 0.52 k/cumm (0.11-0.7); Basophils % 0.5; Eosinophils % 2.6; HCT 37.2 % (36.0-46.0); HGB 12.3 g/dL (12.0-15.5); Immature Grans % 0.2 %; Lymphocytes % 50.7; Mean Corp. HGB Concentration 33.1 g/dL (32.0-36.0); Mean Corpuscular Hemoglobin 28.9 pg (27.0-33.0); Mean Corpuscular Volume 87.5 fL (80-95); Mean Platelet Volume 10.7 fL (8.0-11.0); Monocytes % 5.4; Neutrophils % 40.6; Platelet Count 270 x1000/uL (130-400); RBC 4.25 m/cumm (4.00-5.20); RBC Distribution Width 13.6 % (11.7-14.6); White Blood Cell Count 9.62 k/cumm (4.4-10.8)
[2019-05-13] MEDS: Omnipaque 350 MG/ML 100 ML BTL IJ (22:55)
[2019-05-13] MEDS: Normal Saline - Diluent 50 ML VIAL IV (22:55)
--- NOTE | 2019-05-13 22:55 | DI.CT_ITS ---
EXAM: CT ABDOMEN PELVIS W CLINICAL HISTORY: Right flank and RUQ pain; concern of cholecystitis. TECHNIQUE: Imaging Protocol: Axial computed tomography images with coronal and sagittal reformatted images were created and reviewed CONTRAST MATERIAL: Intravenous: Omnipaque 350 Contrast volume:100 ml Oral: no COMPARISON: CT CHEST/ABD/PEL W from 04/11/2018 FINDINGS: ABDOMEN: Lung Bases: Normal where visualized. Liver: Mildly enlarged with fatty infiltration.. No measurable mass. Gallbladder and biliary tract: No radiodense calculus or dilation. Pancreas: Normal density, no abnormal calcifications or inflammatory process. Spleen: Normal. Kidneys: Normal size, contour and axis. No radiodense stones or obstructive uropathy. No masses seen. 1 centimeters cyst at the lower pole of the right kidney Adrenal glands: No masses seen. Abdominal Aorta: Abdominal portion non-dilated. PELVIS: Bladder: Symmetric distention, no gross wall thickening. Bowel: The appendix is retrocecal and dilated with surrounding inflammatory change, consistent with a cute appendicitis. There is no evidence of abscess or perforation. The colon is is mainly decompres sed with a small amount of stool seen in the cecum. No obstruction . Peritoneal cavity: No ascites, collection or mesenteric inflammatory response. Bones: Mild degenerative changes in the spine. Reproductive organs: Within normal limits. Lymph nodes: Unremarkable. Impression: Findings consistent with acute uncomplicated appendicitis. DATA REPOSITORY: All CT scans at this facility are submitted to the National Radiology Data Registry (NRDR) Dose Index Registry (DIR) with the [employer] (A[employer]). RADIATION OPTIMIZATION: All CT scans at this facility use at least one of these dose optimization te chniques: automated exposure control; mA and/or kV adjustment per patient size (includes targeted exa ms where dose is matched to clinical indication); or iterative reconstruction.
[2019-05-13] MEDS: Normal Saline 1,000 ML 1000 ML IV (22:56)
[2019-05-13 23:10] LABS: ALT 23 U/L (14-59); AST 17 U/L (15-37); Albumin 3.8 g/dL (3.4-5.0); Alkaline Phosphatase 97 U/L (46-116); Anion Gap 5.8 mmol/L (3-11); BUN 14 mg/dL (7-18); Bilirubin, Total 0.4 mg/dL (0.2-1.0); CO2 35.2 mmol/L (21.0-32.0); CREATININE 0.97 mg/dL (0.55-1.02); Calcium 9.3 mg/dL (8.5-10.1); Chloride 102 mmol/L (98-107); Glucose 150 mg/dL (74-106); Lipase 176 U/L (73-393); Sodium 143 mmol/L (136-145); Total Protein 7.6 g/dL (6.4-8.2)
[2019-05-13 23:20] LABS: Bilirubin Negative (Negative); Blood Negative (Negative); Clarity Clear (Clear); Glucose Negative (Negative); Ketones Negative (Negative); Leukocyte Esterase Negative (Negative); Nitrite Negative (Negative); Specific Gravity 1.015 (1.005-1.025); Urobilinogen 0.2 EU/dL (Up TO 0.2); pH 7.5 (5-8)
[2019-05-13 23:23] LABS: Potassium 2.8 mmol/L (3.5-5.1)
--- NOTE | 2019-05-13 23:25 | DI.VRAD_ITS ---
PROCEDURE INFORMATION: Exam: CT Abdomen And Pelvis With Contrast Exam date and time: 05/13/2019 10:49 PM Age: 53 years old Clinical indication: Abdominal pain; Localized; Right upper quadrant (ruq); Patient HX: Ruq pain with right flank pain. ? Cholecystitis TECHNIQUE: Imaging protocol: Computed tomography of the abdomen and pelvis with intravenous contrast. Radiation optimization: All CT scans at this facility use at least one of these dose optimization techniques: automated exposure control; mA and/or kV adjustment per patient size (includes targeted exams where dose is matched to clinical indication); or iterative reconstruction. Contrast material: OMNIPAQUE 350; Contrast volume: 100 ml; Contrast route: IV; COMPARISON: No relevant prior studies available. FINDINGS: Lungs: The visualized portions of the lung bases demonstrate no acute disease. Liver: There is mild enlargement of the liver. There is a diffuse decrease in hepatic parenchymal density, consistent with fatty infiltration. Gallbladder and bile ducts: Normal. No calcified stones. No ductal dilation. Pancreas: Normal. No ductal dilation. Spleen: Normal. No splenomegaly. Adrenals: Normal. No mass. Kidneys and ureters: 1 cm simple right renal cyst is appreciated in the lower pole. The kidneys appear otherwise unremarkable. No obstructive uropathy. Stomach and bowel: There is submucosal fat deposition appreciated throughout the colon, however best visualized in the descending colon. This is most likely the sequela of prior infectious/inflammatory process or increased body fat content. No other significant bowel wall thickening is appreciated. No bowel obstruction. Appendix: Thickened retrocecal appendix measuring 1.1 cm. The appendix appears hyperemic. There is very mild periappendiceal fat stranding also suggested. Intraperitoneal space: There is a very small amount of physiologic free pelvic fluid present. Vasculature: Unremarkable. No abdominal aortic aneurysm. Lymph nodes: Unremarkable. No enlarged lymph nodes. Bladder: Unremarkable as visualized. Reproductive: Unremarkable as visualized. Bones/joints: No acute skeletal pathology. Mild multilevel degenerative changes of the spine, as manifested by multilevel anterior osteophytes and multilevel decrease in intervertebral disc space. Soft tissues: No acute findings. IMPRESSION: 1. Findings favor mild acute uncomplicated appendicitis. 2. Other incidental findings as detailed above. THIS REPORT CONTAINS FINDINGS THAT MAY BE CRITICAL TO PATIENT CARE. The findings were verbally communicated via telephone conference with Maura Haskins at 11:23 PM EDT on 05/13/2019. The findings were acknowledged and understood. Dictated and Authenticated by: Daivd Patel MD. Ordering:LO Lorenzo MD
[2019-05-14] VITALS (8 sets, daily range): BP systolic 126–162; BP diastolic 69–78; PULSE 58–77; RESP 16–20; TEMP 36.3–37.1; O2SAT 97–100
[2019-05-14] MEDS: Potassium Chloride 20 MEQ TABCR PO (00:14)
[2019-05-14] MEDS: PIPERACILLIN/TAZO 3.375 GM in Normal Saline 50 ML IVPB ×5 (00:14→23:56)
[2019-05-14] MEDS: Lactated Ringers 1,000 ML 125 ML IV ×3 (00:48→22:03)
[2019-05-14] MEDS: Normal Saline Flush 10 ML SYR IVP ×2 (06:14→17:47)
[2019-05-14 07:11] LABS: Anion Gap 7.7 mmol/L (3-11); BUN 10 mg/dL (7-18); CO2 30.3 mmol/L (21.0-32.0); Chloride 106 mmol/L (98-107); Glucose 111 mg/dL (74-106); Potassium 3.3 mmol/L (3.5-5.1); Sodium 144 mmol/L (136-145)
[2019-05-14 07:35] LABS: Abs Immature Grans 0.01 k/cumm (0.0-0.09); Absolute Basophil Count 0.04 k/cumm (0.0-0.2); Absolute Eosinophil Count 0.29 k/cumm (0.0-0.7); Absolute Lymphocyte Count 3.48 k/cumm (1.2-3.4); Absolute Monocyte Count 0.51 k/cumm (0.11-0.7); Absolute Neutrophil Count 2.86 k/cumm (1.2-6.7); Basophils % 0.6; HCT 36.7 % (36.0-46.0); HGB 11.9 g/dL (12.0-15.5); Immature Grans % 0.1 %; Lymphocytes % 48.4; Mean Corp. HGB Concentration 32.4 g/dL (32.0-36.0); Mean Corpuscular Hemoglobin 28.5 pg (27.0-33.0); Mean Corpuscular Volume 87.8 fL (80-95); Mean Platelet Volume 10.8 fL (8.0-11.0); Monocytes % 7.1; Neutrophils % 39.8; Platelet Count 267 x1000/uL (130-400); RBC 4.18 m/cumm (4.00-5.20); RBC Distribution Width 13.7 % (11.7-14.6); White Blood Cell Count 7.19 k/cumm (4.4-10.8)
--- NOTE | 2019-05-14 10:06 | INITIAL_ITS ---
- If Service Date Differs Date of service: 05/14/19 Time of Service: 11:00 Care Management Initial Assess REASON FOR HOSPITALIZATION:: Acute Appendicitis PAST MEDICAL HISTORY/PAST SURGICAL HISTORY:: Anxiety and depression, breast discharge, chronic headache, diffuse cystic mastopathy bilat breasts, dysgeusia, essential hypertension, hyperlipidemia, IFG, polyp of cecum, uterine fibroid. PREVIOUS FUNCTIONAL STATUS/SOCIAL/FAMILY SUPPORTS:: Helena resides in [facility] with her , Barry. CURRENT FUNCTIONAL STATUS:: Helena was lying in bed, she reported having back pain, but reported her pain was well managed at this time. She was somewhat guarded with information but pleasant in interaction. Has patient been provided with information about the portal?: Yes Did the patient sign up for the portal?: Yes (Previously ) CODE STATUS:: Full Code INSURANCE COVERAGE / FINANCIAL ISSUES:: [employer] CURRENT HOME/COMMUNITY SERVICES/EQUIPMENT:: No current services or equipment at this time. PRIMARY CARE PHYSICIAN:: Angela Gleason POTENTIAL DISCHARGE NEEDS:: Follow up appointments. PATIENT/FAMILY EDUCATION NEEDS:: Review discharge instructions, discuss Ask Me Three. ANTICIPATED BARRIERS TO DISCHARGE:: None identifed at this time. TRANSPORTATION:: Via private vehicle with her . PLAN:: Helena will return home when ready per MD. No additional services anticipated at this time. She will transport via private vehicle with her .
--- NOTE | 2019-05-14 12:56 | W.PM.PROGNOT ---
Date of Service Date of service: 05/14/19 Time of Service: 12:57 Assessment and Plan Assessment and plan (1) Functional bowel disorder: Status: Acute Assessment and plan: at this time I don't think she has an appendicitis. SHe has no fever/wbc elevation. N/v have past. She is tolerating po's. we will continue to treat her symptomatically and re-eval in am. Subjective Subjective Interval history since last seen: pt seen and examined. pt state she feels better than last night. She always has chronic back pain. it is painin the back that bother her more. no fever/ no WBC elevation. She is not sure if she is hungry or nauseated- she is going to try some hot tea and see how that feels. She has probs w/ chronic back pain. pain is in back and radiates to front- oth sides equally. no abdoinal distention and good BS. pt also c/o pain and burning on her inner thighs she denies any vaginal d/c or bleeding. on inspection I don't see any rashes/lesions. No recent abx. Se thinks its better w/ zinc cream. Will continue this. Addendum- 5pm she tolerated tea and would like to try some clears. We will aslos try some bentyl and see if this helps w/ the abdoinal pain still afeb Exam Chest Chest: normal inspection of the chest Resp Effort & Inspection: normal respiratory effort and able to speak in complete sentences Auscultation: clear to auscultation bilaterally GI Inspection: normal to inspection Palpation: soft Auscultation: normal bowel sounds Objective Objective Clinical Data: Abnormal lab results 05/13/19 05/13/19 05/14/19 Range/Units 22:31 22:31 06:20 Hgb (12.0-15.5) g/dL Absolute Lymphocytes 4.88 H (1.2-3.4) k/cumm Potassium 2.8 L* 3.3 L (3.5-5.1) mmol/L Carbon Dioxide 35.2 H (21.0-32.0) mmol/L Glucose 150 H 111 H (74-106) mg/dL 05/14/19 Range/Units 06:20 Hgb 11.9 L (12.0-15.5) g/dL Absolute Lymphocytes 3.48 H (1.2-3.4) k/cumm Potassium (3.5-5.1) mmol/L Carbon Dioxide (21.0-32.0) mmol/L Glucose (74-106) mg/dL Vital Signs Temperature 36.7 C 05/14/19 07:30 Temperature Source Tympanic 05/14/19 07:30 Pulse 58 L 05/14/19 07:30 Pulse Rhythm Regular 05/14/19 09:30 Respiratory Rate 16 05/14/19 07:30 Respiratory Effort 05/14/19 09:30 Respiratory Depth Normal 05/14/19 09:30 Respiratory Pattern Normal 05/14/19 09:30 Blood Pressure 137/74 05/14/19 07:30 Blood Pressure Position Supine 05/13/19 22:15 Pulse Oximetry 100 05/14/19 07:30 Oxygen Delivery Method Room Air 05/14/19 07:30 Oxygen Flow Rate 0 05/14/19 07:30 Pain Level 4 05/14/19 01:40 Intake & Output 05/13/19 05/14/19 05/14/19 23:59 11:59 23:59 Intake Total Balance Weight 105.4 kg 105.4 kg Intake: IV Other: Urine Color Yellow Urine Appearance Clear Urine Odor Normal Comment voiding in toilet w/o reported difficulty Voiding Methods Toilet Laboratory Results WBC 7.19 k/cumm (4.4-10.8) 05/14/19 06:20 RBC 4.18 m/cumm (4.00-5.20) 05/14/19 06:20 Hgb 11.9 g/dL (12.0-15.5) L 05/14/19 06:20 Hct 36.7 % (36.0-46.0) 05/14/19 06:20 MCV 87.8 fL (80-95) 05/14/19 06:20 MCH 28.5 pg (27.0-33.0) 05/14/19 06:20 MCHC 32.4 g/dL (32.0-36.0) 05/14/19 06:20 RDW 13.7 % (11.7-14.6) 05/14/19 06:20 Plt Count 267 x1000/uL (130-400) 05/14/19 06:20 MPV 10.8 fL (8.0-11.0) 05/14/19 06:20 Immature Gran % 0.1 % 05/14/19 06:20 Neutrophils % 39.8 05/14/19 06:20 Lymphocytes % 48.4 05/14/19 06:20 Monocytes % 7.1 05/14/19 06:20 Eosinophils % 4.0 05/14/19 06:20 Basophils % 0.6 05/14/19 06:20 Absolute Neutrophils 2.86 k/cumm (1.2-6.7) 05/14/19 06:20 Absolute Lymphocytes 3.48 k/cumm (1.2-3.4) H 05/14/19 06:20 Absolute Monocytes 0.51 k/cumm (0.11-0.7) 05/14/19 06:20 Absolute Eosinophils 0.29 k/cumm (0.0-0.7) 05/14/19 06:20 Absolute Basophils 0.04 k/cumm (0.0-0.2) 05/14/19 06:20 Sodium 144 mmol/L (136-145) 05/14/19 06:20 Potassium 3.3 mmol/L (3.5-5.1) L 05/14/19 06:20 Chloride 106 mmol/L (98-107) 05/14/19 06:20 Carbon Dioxide 30.3 mmol/L (21.0-32.0) 05/14/19 06:20 Anion Gap 7.7 mmol/L (3-11) 05/14/19 06:20 BUN 10 mg/dL (7-18) 05/14/19 06:20 Creatinine 0.80 mg/dL (0.55-1.02) 05/14/19 06:20 Estimated GFR/1.73 m2 >= 60.00 (mL/min/1.73m2) 05/14/19 06:20 Glucose 111 mg/dL (74-106) H 05/14/19 06:20 Calcium 9.0 mg/dL (8.5-10.1) 05/14/19 06:20 Total Bilirubin 0.4 mg/dL (0.2-1.0) 05/13/19 22: AST 17 U/L (15-37) 05/13/19 22: ALT 23 U/L (14-59) 05/13/19 22: Alkaline Phosphatase 97 U/L (46-116) 05/13/19 22:31 Total Protein 7.6 g/dL (6.4-8.2) 05/13/19 22: Albumin 3.8 g/dL (3.4-5.0) 05/13/19 22: Lipase 176 U/L (73-393) 05/13/19 22:31 Urine Color Yellow (Yellow) 05/13/19 23:05 Urine Clarity Clear (Clear) 05/13/19 23:05 Urine pH 7.5 (5-8) 05/13/19 23:05 Ur Specific [place] 1.015 (1.005-1.025) 05/13/19 23:05 Urine Protein Negative mg/dL (Negative) 05/13/19 23:05 Urine Ketones Negative mg/dL (Negative) 05/13/19 23:05 Urine Blood Negative (Negative) 05/13/19 23:05 Urine Nitrite Negative (Negative) 05/13/19 23:05 Urine Bilirubin Negative (Negative) 05/13/19 23:05 Urine Urobilinogen 0.2 EU/dL (Up TO 0.2) 05/13/19 23:05 Ur Leukocyte Esterase Negative (Negative) 05/13/19 23:05 Urine Glucose Negative mg/dL (Negative) 05/13/19 23:05
--- NOTE | 2019-05-14 14:23 | PHACLINREV_ITS ---
Pharmacy Clinical Review - Admission Clinical Review (Last Reviewed 05/13/19 @ 22:47 by AXEL Kimbrough) Acute appendicitis (Acute) acetaminophen [From Tylenol] Adverse Reaction (Intermediate, Verified 05/13/19 23:48) Headache/Kemah Tight extra strength lisinopril Adverse Reaction (Verified 05/13/19 22:21) Headache Height 5 ft 8 in Weight 105.4 kg - Renal Dosing Renal Dosing: BUN 10 mg/dL (7-18) 05/14/19 06:20 Creatinine 0.80 mg/dL (0.55-1.02) 05/14/19 06:20 Medications needing adjustments: Reviewed (Crcl ~104.5 mL/min using adjusted body weight. Current meds okay.) - Anticoagulation Anticoagulation: Hgb 11.9 g/dL (12.0-15.5) L 05/14/19 06:20 Hct 36.7 % (36.0-46.0) 05/14/19 06:20 Plt Count 267 x1000/uL (130-400) 05/14/19 06:20 Creatinine 0.80 mg/dL (0.55-1.02) 05/14/19 06:20 DVT Prohphylaxis: N/A Therapeutic Anticoagulation: N/A - Opiate Usage Evaluate Pain Scale/Pains Meds: Reviewed Scheduled Bowel Reg ordered if on Opiates?: No ( ) - Relevant Labs Sodium 144 mmol/L (136-145) 05/14/19 06:20 Potassium 3.3 mmol/L (3.5-5.1) L 05/14/19 06:20 Chloride 106 mmol/L (98-107) 05/14/19 06:20 Electrolytes, C-Reactive P, ESR: Intervened (send MD message about K+ replacement) - Antimicrobial Stewardship Antibiotic appropriateness: Reviewed Surgical Abx d/c within 24 hr: N/A Culture review/Resistance: N/A - DM Control DM Control: Glucose 111 mg/dL (74-106) H 05/14/19 06:20 Insulin Dosing: N/A - Heart Failure/GA EF%, JOE's, B-Blockers, Diuretics: N/A - BP Control BP Control: Blood Pressure 137/74 Blood Pressure 150/69 If elevated: Reviewed (home meds not currently ordered) - QTc Review If Elevated: Reviewed (QTc 427) - IV to PO Switch IV Medications: N/A - Home Meds Home Med List reviewed: Reviewed (Cyclobenzaprine may enhance the ulcerogenic effect of potassium. Avoid using together or consider alternative dosage form of potassium such as liquid or effervescent preparation.) Relevent Home Meds Not ordered & why?: no home meds ordered right now - Current meds Current Medication Order Review: Reviewed - Comments Comments/Follow Ups: Has pain meds ordered, but has not been using them. Watch BP, K+ and for start of home meds.
--- NOTE | 2019-05-14 14:24 | CHAPLAIN ---
Helena was in bed when I visited. She was talking on the phone but stopped for a brief conversation with me. I introduced myself, explained my role and offered support. She thanked me for visiting and continued with her phone conversation.
[2019-05-14] MEDS: Dicyclomine 10 MG CAP 20 MG PO (17:44)
[2019-05-14] MEDS: Cyclobenzaprine 10 MG TAB PO (21:56)
[2019-05-15] MEDS: Normal Saline Flush 10 ML SYR IVP ×2 (00:01→06:46)
[2019-05-15 00:12] VITALS: BP 157/82; PULSE 65; RESP 16; TEMP 36.7; O2SAT 97
[2019-05-15 06:05] VITALS: BP 131/78; PULSE 61; RESP 16; TEMP 36.1; O2SAT 98
[2019-05-15] MEDS: Lactated Ringers 1,000 ML 125 ML IV (06:45)
[2019-05-15] MEDS: PIPERACILLIN/TAZO 3.375 GM in Normal Saline 50 ML IVPB (06:46)
[2019-05-15] MEDS: Normal Saline 500 ML IV (06:47)
[2019-05-15 06:56] LABS: Abs Immature Grans 0.01 k/cumm (0.0-0.09); Absolute Basophil Count 0.02 k/cumm (0.0-0.2); Absolute Eosinophil Count 0.47 k/cumm (0.0-0.7); Absolute Lymphocyte Count 3.23 k/cumm (1.2-3.4); Absolute Monocyte Count 0.45 k/cumm (0.11-0.7); Absolute Neutrophil Count 3.59 k/cumm (1.2-6.7); Basophils % 0.3; HCT 36.4 % (36.0-46.0); HGB 11.9 g/dL (12.0-15.5); Immature Grans % 0.1 %; Lymphocytes % 41.6; Mean Corp. HGB Concentration 32.7 g/dL (32.0-36.0); Mean Corpuscular Hemoglobin 28.6 pg (27.0-33.0); Mean Corpuscular Volume 87.5 fL (80-95); Mean Platelet Volume 10.7 fL (8.0-11.0); Monocytes % 5.8; Neutrophils % 46.2; Platelet Count 251 x1000/uL (130-400); RBC 4.16 m/cumm (4.00-5.20); RBC Distribution Width 13.8 % (11.7-14.6); White Blood Cell Count 7.77 k/cumm (4.4-10.8)
[2019-05-15 07:10] LABS: Anion Gap 6.4 mmol/L (3-11); BUN 8 mg/dL (7-18); CO2 30.6 mmol/L (21.0-32.0); CREATININE 0.88 mg/dL (0.55-1.02); Calcium 8.7 mg/dL (8.5-10.1); Chloride 107 mmol/L (98-107); Glucose 104 mg/dL (74-106); Potassium 3.1 mmol/L (3.5-5.1); Sodium 144 mmol/L (136-145)
[2019-05-15 08:02] VITALS: BP 120/70; PULSE 62; RESP 18; TEMP 36.6; O2SAT 99
--- NOTE | 2019-05-15 09:20 | DSE_ITS ---
Date of service: 05/15/19 Time of Service: 09:20 DS: Diagnosis Discharge Diagnosis (1) Functional bowel disorder: Status: Acute Discharge Plan Disposition Patient Disposition: HOME Condition: Stable Discharge Details Chief Complaint: FlankPain Clinical Impression: Acute appendicitis Reason For Visit: Abdominal pain Admit Date/Time: 05/13/19 23:36 Admit Provider: Elin Tai Attending Provider: Elin Tai Primary Care Provider: Angela Gleason ED Provider: Maura Haskins Hospital Course Hospital Course: The patient presented with right sided abdominal pain and was initially though to have gallbladder disease. CT showed a dilated appendix. The patient was admitted for antibiotics and monitoring. Her WBC and temp were normal throughout her stay. Her pain lessened and was characterized more by a bloated feeling. She was able to advance her diet and was tolerating PO on the day of discharge. Her abdominal exam was benign. She did complain of an upper thigh rash that did not appear to be fungal in nature. Will treat with hydrocortisone. I will plan to complete a 5 day course of antibiotics. Further discussion with the patient indicates that she does have nausea and pain after eating greasy foods. Will schedule an outpatient US and contact her with results. She also notes some right shoulder pain and swelling so was advised to follow up with her PCP. Home Meds and New Rx's Prescriptions: New amoxicillin-pot clavulanate [Augmentin] 875-125 mg tablet 1 tab PO BID Qty: 6 RF: 0 hydrocortisone 2.5 % cream 1 applic TP BID PRNQty: 30 RF: 1 Continued cyclobenzaprine 10 mg tablet 10 mg PO HS PRN (Reason: muscle spasm) Qty: 30 RF: 3 omega-3 fatty acids 1 each PO DAILY RF: 0 metoprolol succinate 25 mg tablet extended release 24 hr 25 mg PO DAILY Qty: 90 RF: 3 potassium chloride 20 mEq tablet extended release 20 meq PO DAILY Qty: 90 RF: 3 hydrochlorothiazide 25 mg tablet 25 mg PO DAILY Qty: 90 RF: 0 magnesium gluconate 27.5 mg magne- sium (500 mg) tablet 27.5 mg PO BID RF: 0 cholecalciferol (vitamin D3) [Vitamin D3] 2,000 UNIT tablet 2,000 unit PO DAILY RF: 0 Discharge Instructions Referrals: Elin Tai MD [ [facility] STAFF PHYSICIAN] - (My office will contact you to schedule a gallbladder ultrasound) Activity:: Activity as Tolerated Equipment/Supplies:: No Equipment Needed Diet:: As Tolerated Discharge Orders Discharge Orders: Discharge Order (Routine); Ordered 05/15/19 Ordered By: Elin Tai DS: Summary Status at Discharge Functional status at discharge: independent ambulation Overall status at discharge: patient is back to baseline Mental Status: mental status grossly normal Speech and Movement: speech and movement normal Mood: congruent mood Affect: normal affect Exam Psych Mental Status: mental status grossly normal Speech and Movement: speech and movement normal Mood: congruent mood Affect: normal affect DS: Data Vitals/I&O Vitals and I&O: Vital Signs Temperature 97.9 F 05/15/19 08:02 Temperature Source Tympanic 05/15/19 08:02 Pulse 62 05/15/19 08:02 Pulse Rhythm Regular 05/15/19 07:51 Respiratory Rate 18 05/15/19 08:02 Respiratory Effort Non-Labored 05/15/19 07:51 Respiratory Depth Normal 05/15/19 07:51 Respiratory Pattern Normal 05/15/19 07:51 Blood Pressure 120/70 05/15/19 08:02 Blood Pressure Position Supine 05/13/19 22:15 Pulse Oximetry 99 05/15/19 08:02 Oxygen Delivery Method Room Air 05/15/19 08:02 Oxygen Flow Rate 0 05/15/19 08:02 Pain Level 2 05/15/19 08:02 Intake & Output 05/14/19 05/14/19 05/15/19 11:59 23:59 11:59 Intake Total 1781.25 / 3468.75 1687.5 / 3468.75 1050 / 1050 Output Total 550 / 550 350 / 350 Balance 1781.25 / 2918.75 1137.5 / 2918.75 700 / 700 Weight 232 lb 5.875 oz Intake: IV 1781.25 / 2868.75 1087.5 / 2868.75 1050 / 1050 Oral 600 / 600 Output: Urine 550 / 550 350 / 350 Other: Urine Color Yellow Pale Yellow Yellow Urine Appearance Clear Clear Clear Urine Odor Normal None Comment voiding in toilet w/o reported difficulty Voided at this time. Voiding Methods Toilet Toilet Toilet Data Completed and Pending Labs on day of discharge: Labs from last 24 hours 05/15/19 05/15/19 06:30 06:30 WBC 7.77 RBC 4.16 Hgb 11.9 L Hct 36.4 MCV 87.5 MCH 28.6 MCHC 32.7 RDW 13.8 Plt Count 251 MPV 10.7 Immature Gran % 0.1 Neutrophils % 46.2 Lymphocytes % 41.6 Monocytes % 5.8 Eosinophils % 6.0 Basophils % 0.3 Absolute Neutrophils 3.59 Absolute Lymphocytes 3.23 Absolute Monocytes 0.45 Absolute Eosinophils 0.47 Absolute Basophils 0.02 Sodium 144 Potassium 3.1 L Chloride 107 Carbon Dioxide 30.6 Anion Gap 6.4 BUN 8 Creatinine 0.88 Estimated GFR/1.73 m2 >= 60.00 Glucose 104 Calcium 8.7 PFSH Medical History Anxiety and depression (Chronic) Breast discharge (Chronic) 04/11/2018 [facility] consult: normal, monitor Chronic tension type headache (Chronic) Diffuse cystic mastopathy of both breasts (Chronic) Dysgeusia (Resolved) Dysmenorrhea (Chronic) H/o iron deficiency with menses Essential hypertension (Chronic) Hyperlipidemia (Chronic 10/10/17) 09/2017 labs: 10-year ASCVD risk = ~5.9% --> no statin indicated at this time Hypokalemia (Chronic) IFG (impaired fasting glucose) (Chronic 10/10/17) Polyp of cecum (Inactive ~03/11/18) Uterine fibroid (Chronic) Pt reports h/o, also seen on 04/11/2018 CT Family History Mother Diabetes Essential hypertension Father Heart disease Sister , Cancer Neoplasm Cancer Sister No problems noted. Brother No problems noted. Brother No problems noted. Daughter Heart disease Social History Smoking/Tobacco Use Status: Never Second Hand Exposure: Yes Alcohol Intake: former Drug use: Never Substance use type: does not use Details: ate marijuana brownies 08/15/18 bad reaction Adopted: No Caregiver/Support person: No Foster care: No Household members: spouse Number of Children: 3 Communication Needs: None current occupation: House cleaning Pets and animals: No Sexually active: Yes Do you think of yourself as: straight/heterosexual Current gender identity: female What type of physical activity do you participate in: walking Duration: 15-30 minutes/day Do you feel safe at home: Yes Do you feel safe in your relationship?: Yes
--- NOTE | 2019-05-15 10:01 | PDOC.CMDIS ---
LACE Index Scoring Tool - Questions: Length of Stay (in days): 2 Acuity (Admit via E.D.?): Yes E.D. Visits: 1 - Answers: Total Score: 6 Risk of Readmission: Low Risk Care Management Discharge Reason for Hospitalization: Acute Appendicitis Discharge Plan: Helena will return home when ready per MD, she will follow up with her community based providers and plan of care as prescribed including follow up with Surgical Services. She will transport via private vehicle with her . Patient/Family Education Needs: Review of discharge instructions, discuss Ask Me Three.
--- NOTE | 2019-05-20 16:48 | W.PM.HP.N ---
Date of service: 05/14/19 Time of Service: 08:00 Assessment and Plan Assessment and plan (1) Functional bowel disorder: Status: Acute (2) Chronic back pain: Status: Acute (3) Abdominal pain in female: Status: Acute Assessment and plan: undetermined significance feels better currently. c/o more of back pain this am. not requiring pain meds or nausea meds. no fevers/WBC is nl. Ct shows appendix at upper end of nl. pt is indeterminate for appendicitis. Will continue to monitor and see how she fairs through the day History of Present Illness Consults Consult date: 05/14/19 Narrative: Pt was admitted through the ED on 05/12 w/ c/o of RLQ pain. Pt started after she had been on her feet for some time and had eating potato chips. She had intense nausea, but no vomiting. She denies fever/chills. She denies diarrhea/constipation. She denies dysuria. Pt states she has less pain than when she came into the hospital last night and feels better. She is somewhat of a vague historian and I can't really get her to say if she is feeling hungry or nausea still. It seems to be she has more back pain that radiates around to the front. She has chronic back pain as well. She also c/o of burning in the skin of her inner thighs. Review of Systems All systems reviewed & are unremarkable except as noted in HPI and below PFSH Medical History Anxiety and depression (Chronic) Breast discharge (Chronic) 04/11/2018 [facility] consult: normal, monitor Chronic tension type headache (Chronic) Diffuse cystic mastopathy of both breasts (Chronic) Dysgeusia (Resolved) Dysmenorrhea (Chronic) H/o iron deficiency with menses Essential hypertension (Chronic) Hyperlipidemia (Chronic 10/10/17) 09/2017 labs: 10-year ASCVD risk = ~5.9% --> no statin indicated at this time Hypokalemia (Chronic) IFG (impaired fasting glucose) (Chronic 10/10/17) Polyp of cecum (Inactive ~03/11/18) Uterine fibroid (Chronic) Pt reports h/o, also seen on 04/11/2018 CT Family History Mother Diabetes Essential hypertension Father Heart disease Sister , Cancer Neoplasm Cancer Sister No problems noted. Brother No problems noted. Brother No problems noted. Daughter Heart disease Social History Smoking/Tobacco Use Status: Never Second Hand Exposure: Yes Alcohol Intake: former Drug use: Never Substance use type: does not use Details: ate marijuana brownies 08/15/18 bad reaction Adopted: No Caregiver/Support person: No Foster care: No Household members: spouse Number of Children: 3 Communication Needs: None current occupation: House cleaning Pets and animals: No Sexually active: Yes Do you think of yourself as: straight/heterosexual Current gender identity: female What type of physical activity do you participate in: walking Duration: 15-30 minutes/day Do you feel safe at home: Yes Do you feel safe in your relationship?: Yes Meds Home Medications and Allergies Home Medications Medication Instructions Recorded Confirmed Type cholecalciferol (vitamin D3) 2,000 unit PO DAILY 05/18/17 05/19/19 History [Vitamin D3] cyclobenzaprine 10 mg tablet 10 mg PO HS PRN #30 tab 11/13/18 05/19/19 Rx hydrochlorothiazide 25 mg tablet 25 mg PO DAILY #90 tab-cap 04/04/19 05/19/19 Rx magnesium gluconate 27.5 mg 27.5 mg PO BID 04/08/19 05/19/19 History magnesium (500 mg) tablet metoprolol succinate 25 mg 25 mg PO DAILY #90 tab-cap 05/12/19 05/19/19 Rx tablet,extended release 24 hr omega-3 fatty acids 1 each PO DAILY 05/12/19 05/19/19 History potassium chloride 20 mEq 20 meq PO DAILY #90 tab-cap 05/12/19 05/19/19 Rx tablet,extended release hydrocortisone 1 applic TP BID PRN #30 gm 05/15/19 05/19/19 Rx ketotifen fumarate 0.025 % (0.035 1 drp OP BID PRN #5 ml 05/19/19 05/19/19 Rx %) eye drops sumatriptan succinate 50 mg tablet 50 mg PO ONCE PRN #30 tab-cap MDD 05/19/19 05/19/19 Rx 200 mg Allergies Allergy/AdvReac Type Severity Reaction Status Date / Time acetaminophen [From Tylenol] AdvReac Intermediate Headache/[place] Verified 05/19/19 10:42 Tight extra strength lisinopril AdvReac Headache Verified 05/19/19 10:42 Exam HENMT Ears: hearing grossly normal bilaterally Teeth and gingiva: dentition normal Other: no dental abscesses. no eye pain/redness/drainage. no jaundice. no tongue pain or sore throat. no neck pain Resp Effort & Inspection: normal respiratory effort and able to speak in complete sentences Auscultation: clear to auscultation bilaterally GI Inspection: normal to inspection Palpation: soft Auscultation: normal bowel sounds Other: no distention no hernias. min pain. c/o more of back pain. no rebound/guarding. Extrem General: no clubbing, cyanosis or edema Other: no rovsings. no back pain for lower leg lifts. Results Labs Result diagrams: 05/15/19 06:30 05/15/19 06:30 Last Vital Signs Temp 36.6 C 05/15/19 08:02 Pulse 62 05/15/19 08:02 Resp 18 05/15/19 08:02 BP 120/70 05/15/19 08:02 Pulse Ox 99 05/15/19 08:02 COVID-19 Screening Traveled to [place] from one of the affected countries or regions?: NO Recent travel in the [place] within the last 8 weeks?: No Recent out of the country travel within the last 8 weeks?: No Exposure or possible exposure to illness during travel?: No Had IN PERSON contact w/suspected or confirmed C-19 person: No Have you had the following symptoms in the past few days?: No
== END 2019-05-15 10:45 | disposition home or self-care (01) | DRG 392 ==
LOC: ER 23:48 → MS 05-14 04:54
PROVIDERS: Admitting Provider Surgery; Emergency Provider Physician Assistant; PCP Nurse Practitioner Family; Visit Provider Surgery
DX: K59.8 Other specified functional intestinal disorders (principal); G89.29 Other chronic pain; M54.9 Dorsalgia, unspecified; R20.8 Other disturbances of skin sensation
CPT/HCPCS: 36415; 80048; 80053; 83690; 93005; 96361; 96365; 99222; 99232; 99238; 99285; 74177; 81003; 85025; 93010; J2543; J3490

== ENCOUNTER 2019-05-19 00:54 | Outpatient (CLI) | payer OTHER, SELFPAY ==
--- NOTE | 2019-05-19 06:15 | DI.US_ITS ---
TECHNIQUE: Ultrasound abdomen performed using standard protocol. COMPARISON: No exams were available for comparison FINDINGS: ABDOMINAL AORTA AND IVC: Not evaluated on this examination. PANCREAS: Normal where visualized. LIVER: Diffuse increased echogenicity consistent with fatty infiltration. Hepatopedal flow in the Po rtal Vein. No hepatomegaly. GALLBLADDER: No evidence of cholelithiasis. No evidence of wall thickening. No pericholecystic fluid identified. BILIARY SYSTEM: Common bile duct measures 4.5 mm. No intrahepatic biliary ductal dilation. GAMEZ'S SIGN: Negative. KIDNEYS: Right kidney is unremarkable. The left kidney was not evaluated. No evidence of renal calc sanjuana. No evidence of hydronephrosis. No renal mass or cyst identified. SPLEEN: Not evaluated. ASCITES: None seen. IMPRESSION: Hepatic steatosis. DATA REPOSITORY:
== END 2019-05-19 01:14 ==
PROVIDERS: PCP Nurse Practitioner Family; Visit Provider Surgery
DX: R10.11 Right upper quadrant pain (principal); K76.0 Fatty (change of) liver, not elsewhere classified; G89.29 Other chronic pain
CPT/HCPCS: 76705

== ENCOUNTER 2019-05-20 14:59 | Inpatient (IN) | payer OTHER, SELFPAY ==
[2019-05-20] VITALS (14 sets, daily range): BP systolic 151–172; BP diastolic 82–119; PULSE 63–117; RESP 13–45; TEMP 36.4–36.9; O2SAT 98–100
[2019-05-20 15:17] LABS: Abs Immature Grans 0.02 k/cumm (0.0-0.09); Absolute Eosinophil Count 0.27 k/cumm (0.0-0.7); Basophils % 0.6; Eosinophils % 2.2; HCT 39.3 % (36.0-46.0); HGB 13.5 g/dL (12.0-15.5); Immature Grans % 0.2 %; Lymphocytes % 66.5; Mean Corp. HGB Concentration 34.4 g/dL (32.0-36.0); Mean Corpuscular Hemoglobin 28.9 pg (27.0-33.0); Mean Corpuscular Volume 84.2 fL (80-95); Mean Platelet Volume 10.5 fL (8.0-11.0); Monocytes % 5.8; Neutrophils % 24.7; Platelet Count 370 x1000/uL (130-400); RBC 4.67 m/cumm (4.00-5.20); RBC Distribution Width 13.6 % (11.7-14.6); White Blood Cell Count 12.34 k/cumm (4.4-10.8)
[2019-05-20 15:20] LABS: Absolute Basophil Count 0.07 k/cumm (0.0-0.2); Absolute Lymphocyte Count 8.21 k/cumm (1.2-3.4); Absolute Monocyte Count 0.72 k/cumm (0.11-0.7); Absolute Neutrophil Count 3.05 k/cumm (1.2-6.7)
--- NOTE | 2019-05-20 15:26 | ED.GENADUL_ITS ---
Discharge Plan Discharge Details Chief Complaint: GenMedical Primary Care Provider: Angela Gleason ED Provider: Maranda Girard Home Meds and New Rx's Prescriptions: No Action cyclobenzaprine 10 mg tablet 10 mg PO HS PRN (Reason: muscle spasm) Qty: 30 RF: 3 Hold Instructions: Home Medication placed on hold at Doctor's office omega-3 fatty acids 1 each PO DAILY RF: 0 metoprolol succinate 25 mg tablet extended release 24 hr 25 mg PO DAILY Qty: 90 RF: 3 potassium chloride 20 mEq tablet extended release 20 meq PO DAILY Qty: 90 RF: 3 sumatriptan succinate 50 mg tablet 50 mg PO ONCE MDD 200 mg PRN (Reason: migraine) Qty: 30 RF: 0 ketotifen fumarate [Allergy Eye (ketotifen)] 0.025 % (0.035 %) drops 1 drp OP BID PRN (Reason: allergy symptoms) Qty: 5 RF: 0 hydrochlorothiazide 25 mg tablet 25 mg PO DAILY Qty: 90 RF: 0 magnesium gluconate 27.5 mg magne- sium (500 mg) tablet 27.5 mg PO BID RF: 0 hydrocortisone 2.5 % cream 1 applic TP BID PRNQty: 30 RF: 1 cholecalciferol (vitamin D3) [Vitamin D3] 2,000 UNIT tablet 2,000 unit PO DAILY RF: 0 Medical Decision Making Patient is a 53-year-old -Lith[place]ian female who presents via wheelchair by her significant other with headache and altered mental status. Patient is hyperventilating upon arrival and has jerking like activity to her extremities. She is able to follow commands and stops jerking when is distracted. Patient does have a history of migraine headaches, hypertension, hypokalemia, chronic right upper quadrant abdominal pain. She did have a telehealth note in her records from yesterday complaining of dizziness. On arrival she denies chest pain. Gross neuro exam is intact, no facial droop, lungs are clear to auscultation bilaterally abdomen is soft non tender to palpation. She denies any drugs or alcohol upon arrival. 1514: EKG shows sinus tachycardia with nonspecific ST changes, reviewed by Dr. Osman ER attending MD alex EKG is available for review which shows normal sinus rhythm with nonspecific T abnormalities no significant change noted. No STEMI no ectopy. 1533: At this time work-up ordered including CBC, CMP, EKG, chest x-ray and UA with urine drug screen; patient given 1 mg lorazepam IV. 1539: Patient is much more comfortable appearing after 1 mg of Ativan IV. Breathing is eupneic, heart rate is down to 84 she is sat 100% on room air. Head CT ordered. Spoke with patient after lorazepam injection she is much more cooperative and alert, speaking in full sentences, denies any diarrhea or vomiting states that she has been taking potassium 20 mEq p.o. daily and has a history of the low potassium. At this time differential diagnosis includes anxiety which is strongly suspicious, atypical migraine, drug ingestion, UTI, CVA, hypokalemia. 1541: Lab called with a critical value of potassium of 1.9. Discussed admission with patient, verbalized understanding. 1611: Spoke with Cesilia Obrien SLOT SERVICE SPECIALIST, trombone slide assembler for hospitalist who agrees to admit patient for hypokalemia. At the time of this dictation patient is hemodynamically stable, alert and oriented awaiting bed assignment for admission to [facility]. HPI General Mode of arrival: wheelchair . Date/Time Provider Initiated Documentation: 05/20/19 14:59 . Limitations to Documentation: altered mental status . Information obtained by: patient . HPI Narrative: Patient is a 53-year-old -Lithuanian female who presents via wheelchair by her significant other with headache and altered mental status. Patient is hyperventilating upon arrival and has jerking like activity to her extremities. She is able to follow commands and stops jerking when is distracted. Patient does have a history of migraine headaches, hypertension, hypokalemia, chronic right upper quadrant abdominal pain. She did have a telehealth note in her records from yesterday complaining of dizziness. On arrival she denies chest pain. Gross neuro exam is intact, no facial droop, lungs are clear to auscultation bilaterally abdomen is soft nontender to palpation. She denies any drugs or alcohol upon arrival. Related Data Home Medications Medication Instructions Recorded Confirmed cholecalciferol (vitamin D3) 2,000 unit PO DAILY 05/18/17 05/19/19 [Vitamin D3] cyclobenzaprine 10 mg tablet 10 mg PO HS PRN #30 tab 11/13/18 05/19/19 hydrochlorothiazide 25 mg tablet 25 mg PO DAILY #90 tab-cap 04/04/19 05/19/19 magnesium gluconate 27.5 mg 27.5 mg PO BID 04/08/19 05/19/19 magnesium (500 mg) tablet metoprolol succinate 25 mg 25 mg PO DAILY #90 tab-cap 05/12/19 05/19/19 tablet,extended release 24 hr omega-3 fatty acids 1 each PO DAILY 05/12/19 05/19/19 potassium chloride 20 mEq 20 meq PO DAILY #90 tab-cap 05/12/19 05/19/19 tablet,extended release hydrocortisone 1 applic TP BID PRN #30 gm 05/15/19 05/19/19 ketotifen fumarate 0.025 % (0.035 1 drp OP BID PRN #5 ml 05/19/19 05/19/19 %) eye drops sumatriptan succinate 50 mg tablet 50 mg PO ONCE PRN #30 tab-cap MDD 05/19/19 05/19/19 200 mg Previous Rx's Medication Instructions Recorded cyclobenzaprine 10 mg tablet 10 mg PO HS PRN #30 tab 11/13/18 hydrochlorothiazide 25 mg tablet 25 mg PO DAILY #90 tab-cap 04/04/19 metoprolol succinate 25 mg 25 mg PO DAILY #90 tab-cap 05/12/19 tablet,extended release 24 hr potassium chloride 20 mEq 20 meq PO DAILY #90 tab-cap 05/12/19 tablet,extended release hydrocortisone 1 applic TP BID PRN #30 gm 05/15/19 ketotifen fumarate 0.025 % (0.035 1 drp OP BID PRN #5 ml 05/19/19 %) eye drops sumatriptan succinate 50 mg tablet 50 mg PO ONCE PRN #30 tab-cap MDD 05/19/19 200 mg Allergies Allergy/AdvReac Type Severity Reaction Status Date / Time acetaminophen [From Tylenol] AdvReac Intermediate Headache/[place] Verified 05/19/19 10:42 Tight extra strength lisinopril AdvReac Headache Verified 05/19/19 10:42 General Stated Complaint: GenMedical AISHA: 3 Review of Systems Narrative: Constitutional: History is limited due to patient's anxious state and hyperventilation at this time. Well groomed, normal body habitus, appears anxious. HEENT: Denies blurry vision, nasal discharge, sore throat, trouble swallowing. Chest: Denies chest pain, palpitations, irregular rhythm, Respiratory: Denies Shortness of breath, cough, hemoptysis. GI: Denies nausea, vomiting, diarrhea, constipation. : Denies hematuria, flank pain, rectal bleeding. Unobtainable due to mental condition [facility] Medical History Anxiety and depression (Chronic) Breast discharge (Chronic) 04/11/2018 [facility] consult: normal, monitor Chronic tension type headache (Chronic) Diffuse cystic mastopathy of both breasts (Chronic) Dysgeusia (Resolved) Dysmenorrhea (Chronic) H/o iron deficiency with menses Essential hypertension (Chronic) Hyperlipidemia (Chronic 10/10/17) 09/2017 labs: 10-year ASCVD risk = ~5.9% --> no statin indicated at this time Hypokalemia (Chronic) IFG (impaired fasting glucose) (Chronic 10/10/17) Migraines (Chronic) Polyp of cecum (Inactive ~03/11/18) Uterine fibroid (Chronic) Pt reports h/o, also seen on 04/11/2018 CT Family History Mother Diabetes Essential hypertension Father Heart disease Sister , Cancer Neoplasm Cancer Sister No problems noted. Brother No problems noted. Brother No problems noted. Daughter Heart disease Social History Smoking/Tobacco Use Status: Never Second Hand Exposure: Yes Alcohol Intake: former Drug use: Never Substance use type: does not use Details: ate marijuana brownsilvia 08/15/18 bad reaction Adopted: No Caregiver/Support person: No Foster care: No Household members: spouse Number of Children: 3 Communication Needs: None current occupation: House cleaning Pets and animals: No Sexually active: Yes Do you think of yourself as: straight/heterosexual Current gender identity: female What type of physical activity do you participate in: walking Duration: 15-30 minutes/day Do you feel safe at home: Yes Do you feel safe in your relationship?: Yes Exam Narrative Exam Narrative: Constitutional: She is alert, hyperventilating, appears very anxious appears stated age. Normal body habitus. Head: Normocephalic, no trauma. Eyes: Pupils PERRLA, Red reflex noted, EOM's intact. Eyelids symmetrical without lesions, discharge, or swelling. ENT: Bilateral TM's WNL, External ear normal to inspection, no mastoid TTP, swelling, or erythema, Nasal turbinates WNL, no nasal discharge. Normal dentition, Posterior pharynx WNL, no exudate. Chest: Normal sinus rhythm, tachycardic normal S1, S2, distal pulses intact. Resp: Lungs clear to auscultation bilaterally, no wheezes, rales, or rhonchi. Musculoskeletal: 5/5 strength to all four extremities. Patient able to squeeze my fingers, is able to bend her knees when directed. Skin: No suspicious rashes or lesions. Capillary refill less than 2 sec. Neurologic: Cranial nerves II-XII intact. Alert and oriented x 3. DTR's intact. Hematologic/Lymphatic: No ecchymosis, no lymphadenopathy. Course Vital Signs Vital signs: Vital Signs Temperature 36.8 C 05/20/19 15:06 Pulse 110 H 05/20/19 15:06 Respiratory Rate 32 H 05/20/19 15:06 Blood Pressure 152/82 H 05/20/19 15:06 Pulse Oximetry 99 05/20/19 15:06 Temperature 36.8 C 05/20/19 15:06 Temperature Source Tympanic 05/20/19 15:06 Pulse 110 H 05/20/19 15:06 Respiratory Rate 32 H 05/20/19 15:11 Respiratory Effort 05/20/19 15:11 Respiratory Depth Shallow 05/20/19 15:11 Respiratory Pattern Tachypnea 05/20/19 15:11 Blood Pressure 152/82 H 05/20/19 15:06 Blood Pressure Position Sitting 05/20/19 15:06 Pulse Oximetry 99 05/20/19 15:06 Oxygen Delivery Method Nasal Cannula 05/20/19 15:06 Pain Level 5 05/20/19 15:06
[2019-05-20 15:31] LABS: Diff Comment Agrees w/ Instrument; RBC Morphology Normal
[2019-05-20 15:36] LABS: ALT 23 U/L (14-59); AST 18 U/L (15-37); Albumin 4.1 g/dL (3.4-5.0); Alkaline Phosphatase 103 U/L (46-116); Anion Gap 19.6 mmol/L (3-11); BUN 16 mg/dL (7-18); Bilirubin, Total 0.5 mg/dL (0.2-1.0); CO2 20.4 mmol/L (21.0-32.0); CREATININE 1.26 mg/dL (0.55-1.02); Calcium 9.7 mg/dL (8.5-10.1); Chloride 100 mmol/L (98-107); Estimated GFR 44.59 (mL/min/1.73m2); Glucose 154 mg/dL (74-106); Sodium 140 mmol/L (136-145); Total Protein 8.4 g/dL (6.4-8.2)
[2019-05-20] MEDS: LORazepam 2 MG/ML VIAL 1 MG IVP (15:36)
[2019-05-20 15:41] LABS: Potassium 1.9 mmol/L (3.5-5.1); Troponin I < 0.05 ng/Ml (<0.06)
--- NOTE | 2019-05-20 15:48 | DI.RAD_ITS ---
EXAM: XR PORTABLE CHEST AP CLINICAL HISTORY: SOB TECHNIQUE: COMPARISON: XR CHEST 2V PA LATERAL from 03/21/2018 FINDINGS: Portable AP view of the chest at 1335 hours. Heart is not enlarged. Lungs are clear and well expand ed. IMPRESSION: no evidence of acute process
[2019-05-20 16:02] LABS: Salicylate < 2.8 mg/dL (2.8-20.0)
[2019-05-20 16:04] LABS: Acetaminophen < 2 ug/mL (10-30)
[2019-05-20] MEDS: Potassium Chloride Liquid 20 MEQ PKT 40 MEQ PO (16:09)
[2019-05-20] MEDS: POTASSIUM CHLORIDE 20 MEQ/100 ML BAG 50 MEQ IVPB (16:10)
[2019-05-20] MEDS: Normal Saline 1,000 ML 1000 ML IV (16:10)
[2019-05-20 16:17] LABS: Creatine Kinase 182 U/L (26-192)
--- NOTE | 2019-05-20 16:24 | W.PM.HP.N ---
Date of service: 05/20/19 Time of Service: 16:24 Assessment and Plan Assessment and plan (1) Hypokalemia: Status: Chronic Assessment and plan: will refer to observation on telemetry. potassium replacement and close monitoring. mag level was 2.0. added aldosterone and plasma renin activity, both send outs. will hold HCTZ (2) Migraines: Status: Chronic Assessment and plan: with history of. head CT pending. imitrex as needed, apap. Qualifiers: Intractability: not intractable Migraine type: without aura Status migrainosus presence: without status migrainosus Qualified Code(s): G43.009 - Migraine without aura, not intractable, without status migrainosus (3) Anxiety and depression: Status: Chronic Assessment and plan: received ativan in the ED with improvement in her symptoms (4) Essential hypertension: Status: Chronic Assessment and plan: poorly controlled. will stop hctz, add spironalactone consider increasing metoprolol. monitor closely and adjust as needed. History of Present Illness History of Present Illness Chief Complaint: AMS Narrative: Patient is a 53-year-old -Australian female who presents via wheelchair by her significant other with headache and altered mental status. Patient is hyperventilating upon arrival and has jerking like activity to her extremities. She is able to follow commands and stops jerking when is distracted. Patient does have a history of migraine headaches, hypertension, hypokalemia, chronic right upper quadrant abdominal pain. She did have a telehealth note in her records from yesterday complaining of dizziness. On arrival she denies chest pain. Gross neuro exam is intact, no facial droop, lungs are clear to auscultation bilaterally abdomen is soft non tender to palpation. She denies any drugs or alcohol upon arrival. Work up revealed a potassium of 1.9, her magnesium level was 2.0. rest of work up including EKG were unremarkable. a head CT is pending at time of admission. she was given 40 meq of oral potassium and 20 meq of IVPB potassium. patient was hospitalized from 05/12 to 05/14 after presenting to the ER with right upper quadrant abdominal pain. She was further worked up with labs (CBC/D, CMP, lipase, urinalysis), which were all normal/unremarkable, and an abdominal/pelvic CT scan which showed findings c/w possible acute appendicitis (The appendix is retrocecal and dilated with surrounding inflammatory change, consistent with acute appendicitis.). However, after patient remained afebrile and with a normal WBC throughout hospitalization, acute appendicitis was ruled out. An outpatient abdominal ultrasound was ordered to rule out gallbladder disease, and this result is pending at the this time. She was previously diagnosed with functional chronic abdominal pain. Patient reports she has not had any further issues with abdominal pain since her hospitalization, however, she has developed an issue with dizziness since she was discharged . she had a discharge follow up visit via telehealth yesterday and plan was to follow up in a couple weeks again. Review of Systems Constitutional Constitutional: Reports headache(s) ENT Ears, Nose, Mouth, and Throat: Reports dizziness and Reports headache(s) Neurologic Neurologic: Reports dizziness and Reports headache(s) COUNTS INCLUDE 234 BEDS AT THE [facility] Medical History (Updated 05/20/19 @ 22:19 by Sergey Donohue) Abdominal pain in female (Acute) Anxiety and depression (Chronic) Breast discharge (Chronic) 04/11/2018 [facility] consult: normal, monitor Chronic back pain (Acute) Chronic tension type headache (Chronic) Diffuse cystic mastopathy of both breasts (Chronic) Dysgeusia (Resolved) Dysmenorrhea (Chronic) H/o iron deficiency with menses Essential hypertension (Chronic) Hyperlipidemia (Chronic 10/10/17) 09/2017 labs: 10-year ASCVD risk = ~5.9% --> no statin indicated at this time Hypokalemia (Chronic) IFG (impaired fasting glucose) (Chronic 10/10/17) Migraines (Chronic) Polyp of cecum (Inactive ~03/11/18) Uterine fibroid (Chronic) Pt reports h/o, also seen on 04/11/2018 CT Family History Mother Diabetes Essential hypertension Father Heart disease Sister , Cancer Neoplasm Cancer Sister No problems noted. Brother No problems noted. Brother No problems noted. Daughter Heart disease Social History Smoking/Tobacco Use Status: Never Second Hand Exposure: Yes Alcohol Intake: former Drug use: Never Substance use type: does not use Details: ate marijuana brownies 08/15/18 bad reaction Adopted: No Caregiver/Support person: No Foster care: No Household members: spouse Number of Children: 3 Communication Needs: None current occupation: House cleaning Pets and animals: No Sexually active: Yes Do you think of yourself as: straight/heterosexual Current gender identity: female What type of physical activity do you participate in: walking Duration: 15-30 minutes/day Do you feel safe at home: Yes Do you feel safe in your relationship?: Yes Meds Home Medications and Allergies Home Medications Medication Instructions Recorded Confirmed Type cholecalciferol (vitamin D3) 2,000 unit PO DAILY 05/18/17 05/20/19 History [Vitamin D3] cyclobenzaprine 10 mg tablet 10 mg PO HS PRN #30 tab 11/13/18 05/20/19 Rx magnesium gluconate 27.5 mg 27.5 mg PO BID 04/08/19 05/20/19 History magnesium (500 mg) tablet metoprolol succinate 25 mg 25 mg PO DAILY #90 tab-cap 05/12/19 05/20/19 Rx tablet,extended release 24 hr omega-3 fatty acids 1 each PO DAILY 05/12/19 05/20/19 History potassium chloride 20 mEq 20 meq PO DAILY #90 tab-cap 05/12/19 05/20/19 Rx tablet,extended release hydrocortisone 1 applic TP BID PRN #30 gm 05/15/19 05/20/19 Rx ketotifen fumarate 0.025 % (0.035 1 drp OP BID PRN #5 ml 05/19/19 05/20/19 Rx %) eye drops sumatriptan succinate 50 mg tablet 50 mg PO ONCE PRN #30 tab-cap MDD 05/19/19 05/20/19 Rx 200 mg spironolactone 25 mg PO DAILY #30 tab 05/21/19 Rx Allergies Allergy/AdvReac Type Severity Reaction Status Date / Time acetaminophen [From Tylenol] AdvReac Intermediate Headache/[place] Verified 05/19/19 10:42 Tight extra strength lisinopril AdvReac Headache Verified 05/19/19 10:42 Exam Narrative Exam Narrative: -[place] female of stated age, appears anxious. in no acute distress, warm dry and well perfused. HEENT: normocephalic atraumatic, non-icteric, EOM's intact, oral mucosa slightly dry NECK: supple, CV RRR, tachy Lungs: respirations even and unlabored. abdomen: obese, soft non tender with positive bowel sounds neuro: awake oriented, no focal deficits psyche: anxious, flat affect. Results Labs Result diagrams: 05/20/19 15:06 05/21/19 06:10 Labs: Laboratory Results - last 24 hr 05/20/19 05/20/19 05/20/19 15:06 15:06 15:06 WBC 12.34 H RBC 4.67 Hgb 13.5 Hct 39.3 MCV 84.2 MCH 28.9 MCHC 34.4 RDW 13.6 Plt Count 370 D MPV 10.5 Immature Gran % 0.2 Neutrophils % 24.7 Lymphocytes % 66.5 Monocytes % 5.8 Eosinophils % 2.2 Basophils % 0.6 Absolute Neutrophils 3.05 Absolute Lymphocytes 8.21 H Absolute Monocytes 0.72 H Absolute Eosinophils 0.27 Absolute Basophils 0.07 Differential Comment Agrees w/ instrument RBC Morphology Normal Sodium 140 Potassium 1.9 L* Chloride 100 Carbon Dioxide 20.4 L Anion Gap 19.6 H BUN 16 Creatinine 1.26 H Estimated GFR/1.73 m2 44.59 Glucose 154 H Calcium 9.7 Magnesium 2.0 Total Bilirubin 0.5 AST 18 ALT 23 Alkaline Phosphatase 103 Troponin I < 0.05 Total Protein 8.4 H Albumin 4.1 Salicylates < 2.8 Acetaminophen < 2 Last Vital Signs Temp 36.8 C 05/20/19 15:06 Pulse 110 H 05/20/19 15:06 Resp 45 H 05/20/19 15:30 BP 152/82 H 05/20/19 15:06 Pulse Ox 98 05/20/19 15:22 COVID-19 Screening Traveled to [place] from one of the affected countries or regions?: NO Recent travel in the [place] within the last 8 weeks?: No Recent out of the country travel within the last 8 weeks?: No Exposure or possible exposure to illness during travel?: No Had IN PERSON contact w/suspected or confirmed C-19 person: No Symptoms noted since travel?: No Symptoms
--- NOTE | 2019-05-20 16:39 | DI.VRAD_ITS ---
PROCEDURE INFORMATION: Exam: XR Chest, 1 View Exam date and time: 05/20/2019 3:49 PM Age: 53 years old Clinical indication: Shortness of breath TECHNIQUE: Imaging protocol: XR of the chest Views: 1 view. COMPARISON: No relevant prior studies available. FINDINGS: Lungs: Unremarkable. No consolidation. Pleural space: Unremarkable. No pleural effusion. No pneumothorax. Heart/Mediastinum: Unremarkable. No cardiomegaly. Bones/joints: Unremarkable. IMPRESSION: No acute findings. Dictated and Authenticated by: Hugo Fermin MD. Ordering:GEOVANNA Low MD
--- NOTE | 2019-05-20 17:05 | DI.CT_ITS ---
EXAM: CT HEAD WO CLINICAL HISTORY: Headache, AMS. TECHNIQUE: Imaging Protocol: Axial computed tomography images with coronal and sagittal reformatted images were created and reviewed COMPARISON: CT HEAD WO from 08/15/2018 FINDINGS: The ventricular system is normal in appearance. No evidence of acute intracranial hemorrhage, mass effect, or midline shift. The orbital structures are unremarkable. The temporal bone structures appear intact. Calvarium: Normal. Visualized Paranasal sinuses/Mastoids: Clear. IMPRESSION: Normal cranial CT. RADIATION DOSE DELIVERED: DATA REPOSITORY: All CT scans at this facility are submitted to the National Radiology Data Registry (NRDR) Dose Index Registry (DIR) with the [employer] ([employer]). RADIATION OPTIMIZATION: All CT scans at this facility use at least one of these dose optimization te chniques: automated exposure control; mA and/or kV adjustment per patient size (includes targeted exa ms where dose is matched to clinical indication); or iterative reconstruction.
--- NOTE | 2019-05-20 17:09 | DI.VRAD_ITS ---
PROCEDURE INFORMATION: Exam: CT Head Without Contrast Exam date and time: 05/20/2019 4:58 PM Age: 53 years old Clinical indication: Pain; Headache not specified; Patient HX: Headache, AMS TECHNIQUE: Imaging protocol: Computed tomography of the head without contrast. Radiation optimization: All CT scans at this facility use at least one of these dose optimization techniques: automated exposure control; mA and/or kV adjustment per patient size (includes targeted exams where dose is matched to clinical indication); or iterative reconstruction. COMPARISON: No relevant prior studies available. FINDINGS: Brain: Normal. No hemorrhage. Unremarkable white matter. No mass effect. Ventricles: Normal. No ventriculomegaly. Bones/joints: Unremarkable. No acute fracture. Sinuses: Visualized sinuses are unremarkable. No fluid levels. Mastoid air cells: Visualized mastoid air cells are well aerated. Soft tissues: Unremarkable. IMPRESSION: No acute intracranial abnormality. Dictated and Authenticated by: Hugo Fermin MD. Ordering:GEOVANNA Low MD
[2019-05-20 17:30] LABS: *AMPHETAMINES SCREEN URINE Negative (Negative); *BARBITURATES SCREEN URINE Negative (Negative); *BENZODIAZEPINES SCREEN URINE Negative (Negative); Cannabinoids THC Negative (Negative); Cocaine Screen,Urine Negative (Negative); METHADONE URINE SCREEN Negative (Negative); OPIATES URINE SCREEN Negative (Negative)
[2019-05-20 17:32] LABS: Tricyclic Antidepressants Negative (Negative)
[2019-05-20 17:35] LABS: Bilirubin Negative (Negative); Blood Trace-intact (Negative); Clarity Clear (Clear); Glucose Negative (Negative); Ketones Negative (Negative); Leukocyte Esterase Negative (Negative); Nitrite Negative (Negative); Specific Gravity 1.015 (1.005-1.025); Urobilinogen 0.2 EU/dL (Up TO 0.2); pH 7.5 (5-8)
[2019-05-20 17:43] LABS: Bacteria Negative HPF (Negative); C & S Indicated? No; Casts Negative LPF (Negative); Crystals Negative HPF (Negative); Epithelial Cells Few HPF (Negative); Mucus Negative (Negative); Other Cells Negative (Negative); RBC Negative HPF (0-2); WBC Negative HPF (0-5)
[2019-05-20] MEDS: Spironolactone 25 MG TAB PO (17:59)
[2019-05-20] MEDS: Potassium Chloride 20 MEQ TABCR 40 MEQ PO ×2 (17:59→20:35)
[2019-05-20] MEDS: Normal Saline 1,000 ML 50 ML IV (18:15)
[2019-05-20 19:46] LABS: Troponin I 0.21 ng/Ml (<0.06)
[2019-05-20 19:47] LABS: BUN 13 mg/dL (7-18); CREATININE 0.94 mg/dL (0.55-1.02); Calcium 9.3 mg/dL (8.5-10.1); Chloride 105 mmol/L (98-107); Glucose 107 mg/dL (74-106); Sodium 143 mmol/L (136-145)
[2019-05-20 19:48] LABS: Anion Gap 8.1 mmol/L (3-11); CO2 29.9 mmol/L (21.0-32.0)
[2019-05-20] MEDS: Magnesium Gluconate 500 MG TAB PO (20:35)
--- NOTE | 2019-05-20 21:54 | W.PM.PROGNOT ---
Date of Service Date of service: 05/20/19 Time of Service: 21:54 Assessment and Plan Assessment and plan (1) Elevated troponin: Start date: 05/20/19 Status: Acute Assessment and plan: This is a 53-year-old lady with nonspecific physical complaints hospitalized for acute hypokalemia chronically on hydrochlorothiazide for hypertension. She also complained of right upper quadrant abdominal pain earlier which had resolved and muscle stiffness and spasm with her electrolyte abnormality. She did have nonspecific changes on her EKG upon admission with a bump in her second troponin with trending troponins to be continued. Repeat EKG was reassuring and she was having no active symptoms of angina pectoris. This troponin bump may have been secondary to demand with her admitting hypokalemia and sinus tachycardia but further evaluation is warranted including repeat troponin at 4 hours. If this is positive we will call [facility] [place] cardiology to review for possible non-STEMI. For now I will advance her metoprolol for blood pressure control and to avoid recurrent tachycardia. Her potassium have been replenished and she is still on supplement. I did spend 30 minutes of additional direct patient care time at the patient's bedside after I received the report of her elevated troponin. I reviewed her history and lab as well as repeated lab as appropriate. (2) Essential hypertension: Status: Chronic Assessment and plan: Patient is off hydrochlorothiazide and I will increase metoprolol to 25 mg every 8 hours. Subjective Subjective Interval history since last seen: This is a 53-year-old lady who was admitted with severe hypokalemia and received IV potassium with some correction of her potassium from below to to just above 3. She denied any chest pain or palpitations but did have a left plethora of somatic complaints when I reviewed her history after receiving a repeat troponin that was slightly elevated at 0.2. She had had right upper quadrant abdominal pain which sounded like gallbladder pain as well as generalized muscle stiffness but may have been associated with her hypokalemia. She also had a headache and took Imitrex on the day of admission. She denied any shortness of breath or retrosternal chest pain. She also denied any diaphoresis or GI symptoms other than her right upper quadrant abdominal pain which has come and gone. I did review her EKG done upon admission and did repeat this. She is on telemetry revealing normal sinus rhythm. She is on metoprolol for hypertension with hydrochlorothiazide with hydrochlorothiazide held because of her hypokalemia. I did advance her beta-blockade with her atypical changes on her initial EKG and troponin changes. She is a full code. She was in no distress and having no new symptoms before I examined her after receiving the elevated troponin level report. Exam Narrative Exam Narrative: Patient appears comfortable and has a heavy accent during conversation. She mostly was complaining of her headache and her muscle stiffness but was moving all of her extremities comfortably without focalizing neurological findings. she did have increased somatic complaints with a flattened affect and monotonous tone to her voice with slightly pressured speech. Heart and lung exam were unrevealing. Objective Objective Clinical Data: Abnormal lab results 05/20/19 05/20/19 05/20/19 Range/Units 15:06 15:06 17:05 WBC 12.34 H (4.4-10.8) k/cumm Absolute Lymphocytes 8.21 H (1.2-3.4) k/cumm Absolute Monocytes 0.72 H (0.11-0.7) k/cumm Potassium 1.9 L* (3.5-5.1) mmol/L Carbon Dioxide 20.4 L (21.0-32.0) mmol/L Anion Gap 19.6 H (3-11) mmol/L Creatinine 1.26 H (0.55-1.02) mg/dL Glucose 154 H (74-106) mg/dL Troponin I (<0.06) ng/Ml Total Protein 8.4 H (6.4-8.2) g/dL Urine Blood Trace-intact H (Negative) 05/20/19 05/20/19 Range/Units 19:15 19:15 WBC (4.4-10.8) k/cumm Absolute Lymphocytes (1.2-3.4) k/cumm Absolute Monocytes (0.11-0.7) k/cumm Potassium 3.0 L D (3.5-5.1) mmol/L Carbon Dioxide (21.0-32.0) mmol/L Anion Gap (3-11) mmol/L Creatinine (0.55-1.02) mg/dL Glucose 107 H (74-106) mg/dL Troponin I 0.21 H* (<0.06) ng/Ml Total Protein (6.4-8.2) g/dL Urine Blood (Negative) Vital Signs Temperature 36.9 C 05/20/19 17:27 Temperature Source Tympanic 05/20/19 15:06 Pulse 65 05/20/19 17:27 Pulse Rhythm Regular 05/20/19 17:27 Pulse 77 05/20/19 16:22 Respiratory Rate 18 05/20/19 17:27 Respiratory Effort Non-Labored 05/20/19 17:27 Respiratory Depth Normal 05/20/19 17:27 Respiratory Pattern Normal 05/20/19 17:27 Blood Pressure 165/89 H 05/20/19 17:27 Blood Pressure Mean 117 05/20/19 15:45 Blood Pressure Position Sitting 05/20/19 15:06 Pulse Oximetry 100 05/20/19 17:27 Oxygen Delivery Method Room Air 05/20/19 17:27 Oxygen Flow Rate 0 05/20/19 17:27 Pain Level 0 05/20/19 17:27 Intake & Output 05/19/19 05/20/19 05/20/19 23:59 11:59 23:59 Intake Total 1037.5 / 1037.5 Output Total 1000 / 1000 Balance 37.5 / 37.5 Weight 109.3 kg Intake: IV 1037.5 / 1037.5 Output: Urine 1000 / 1000 Other: Urine Color Pale Yellow Urine Appearance Clear Voiding Methods Toilet Laboratory Results WBC 12.34 k/cumm (4.4-10.8) H 05/20/19 15:06 RBC 4.67 m/cumm (4.00-5.20) 05/20/19 15:06 Hgb 13.5 g/dL (12.0-15.5) 05/20/19 15:06 Hct 39.3 % (36.0-46.0) 05/20/19 15:06 MCV 84.2 fL (80-95) 05/20/19 15:06 MCH 28.9 pg (27.0-33.0) 05/20/19 15:06 MCHC 34.4 g/dL (32.0-36.0) 05/20/19 15:06 RDW 13.6 % (11.7-14.6) 05/20/19 15:06 Plt Count 370 x1000/uL (130-400) D 05/20/19 15:06 MPV 10.5 fL (8.0-11.0) 05/20/19 15:06 Immature Gran % 0.2 % 05/20/19 15:06 Neutrophils % 24.7 05/20/19 15:06 Lymphocytes % 66.5 05/20/19 15:06 Monocytes % 5.8 05/20/19 15:06 Eosinophils % 2.2 05/20/19 15:06 Basophils % 0.6 05/20/19 15:06 Absolute Neutrophils 3.05 k/cumm (1.2-6.7) 05/20/19 15:06 Absolute Lymphocytes 8.21 k/cumm (1.2-3.4) H 05/20/19 15:06 Absolute Monocytes 0.72 k/cumm (0.11-0.7) H 05/20/19 15:06 Absolute Eosinophils 0.27 k/cumm (0.0-0.7) 05/20/19 15:06 Absolute Basophils 0.07 k/cumm (0.0-0.2) 05/20/19 15:06 Differential Comment Agrees w/ instrument 05/20/19 15:06 RBC Morphology Normal 05/20/19 15:06 Sodium 143 mmol/L (136-145) 05/20/19 19:15 Potassium 3.0 mmol/L (3.5-5.1) L D 05/20/19 19:15 Chloride 105 mmol/L (98-107) 05/20/19 19:15 Carbon Dioxide 29.9 mmol/L (21.0-32.0) 05/20/19 19:15 Anion Gap 8.1 mmol/L (3-11) 05/20/19 19:15 BUN 13 mg/dL (7-18) 05/20/19 19:15 Creatinine 0.94 mg/dL (0.55-1.02) 05/20/19 19:15 Estimated GFR/1.73 m2 >= 60.00 (mL/min/1.73m2) 05/20/19 19:15 Glucose 107 mg/dL (74-106) H 05/20/19 19:15 Calcium 9.3 mg/dL (8.5-10.1) 05/20/19 19:15 Magnesium 2.0 mg/dL (1.8-2.4) 05/20/19 15:06 Total Bilirubin 0.5 mg/dL (0.2-1.0) 05/20/19 15:06 AST 18 U/L (15-37) 05/20/19 15:06 ALT 23 U/L (14-59) 05/20/19 15:06 Alkaline Phosphatase 103 U/L (46-116) 05/20/19 15:06 Creatine Kinase 182 U/L (26-192) 05/20/19 15:07 Troponin I 0.21 ng/Ml (<0.06) H* 05/20/19 19:15 Total Protein 8.4 g/dL (6.4-8.2) H 05/20/19 15:06 Albumin 4.1 g/dL (3.4-5.0) 05/20/19 15:06 Urine Color Straw (Yellow) 05/20/19 17:05 Urine Clarity Clear (Clear) 05/20/19 17:05 Urine pH 7.5 (5-8) 05/20/19 17:05 Ur Specific [place] 1.015 (1.005-1.025) 05/20/19 17:05 Urine Protein Negative mg/dL (Negative) 05/20/19 17:05 Urine Ketones Negative mg/dL (Negative) 05/20/19 17:05 Urine Blood Trace-intact (Negative) H 05/20/19 17:05 Urine Nitrite Negative (Negative) 05/20/19 17:05 Urine Bilirubin Negative (Negative) 05/20/19 17:05 Urine Urobilinogen 0.2 EU/dL (Up TO 0.2) 05/20/19 17:05 Ur Leukocyte Esterase Negative (Negative) 05/20/19 17:05 Urine RBC Negative HPF (0-2) 05/20/19 17:05 Urine WBC Negative HPF (0-5) 05/20/19 17:05 Ur Epithelial Cells Few HPF (Negative) 05/20/19 17:05 Urine Crystals Negative HPF (Negative) 05/20/19 17:05 Urine Bacteria Negative HPF (Negative) 05/20/19 17:05 Urine Casts Negative LPF (Negative) 05/20/19 17:05 Urine Mucus Negative (Negative) 05/20/19 17:05 Urine Other Negative (Negative) 05/20/19 17:05 Ur Culture Indicated? No 05/20/19 17:05 Urine Glucose Negative mg/dL (Negative) 05/20/19 17:05 Salicylates < 2.8 mg/dL (2.8-20.0) 05/20/19 15:06 Urine Opiates Screen Negative (Negative) 05/20/19 17:05 Urine Methadone Screen Negative (Negative) 05/20/19 17:05 Acetaminophen < 2 ug/mL (10-30) 05/20/19 15:06 Ur Barbiturates Screen Negative (Negative) 05/20/19 17:05 Ur Tricyclics Screen Negative (Negative) 05/20/19 17:05 Ur Amphetamines Screen Negative (Negative) 05/20/19 17:05 U Benzodiazepines Scrn Negative (Negative) 05/20/19 17:05 Urine Cocaine Screen Negative (Negative) 05/20/19 17:05 Ur THC Screen Negative (Negative) 05/20/19 17:05 EKG done upon admission did reveal sinus tachycardia with nonspecific T wave abnormalities and ST depression laterally and the V leads. Repeat EKG after increase troponin level was reported showed resolution of the ST depressions and continued nonspecific T wave abnormalities.
[2019-05-20] MEDS: Metoprolol 25 MG TAB PO (22:40)
[2019-05-20 23:27] LABS: Troponin I 0.16 ng/Ml (<0.06)
[2019-05-21] MEDS: Aspirin E.C. 325 MG TABEC 162 MG PO (00:43)
[2019-05-21 04:36] VITALS: BP 144/76; PULSE 54; RESP 18; TEMP 37.2; O2SAT 100
[2019-05-21] MEDS: Metoprolol 25 MG TAB PO (06:00)
[2019-05-21] MEDS: Heparin 5,000 UNITS/ML VIAL 5000 UNITS SC (06:00)
[2019-05-21 07:07] LABS: Anion Gap 5.8 mmol/L (3-11); BUN 12 mg/dL (7-18); CO2 29.2 mmol/L (21.0-32.0); CREATININE 0.88 mg/dL (0.55-1.02); Chloride 108 mmol/L (98-107); Glucose 104 mg/dL (74-106); Potassium 3.6 mmol/L (3.5-5.1); Sodium 143 mmol/L (136-145)
[2019-05-21 07:18] VITALS: BP 172/75; PULSE 70; RESP 18; TEMP 36.6; O2SAT 96
[2019-05-21] MEDS: Magnesium Gluconate 500 MG TAB PO (09:17)
[2019-05-21] MEDS: Atorvastatin 20 MG TAB PO (09:17)
[2019-05-21] MEDS: Aspirin E.C. 81 MG TABEC PO (09:17)
[2019-05-21] MEDS: Potassium Chloride 20 MEQ TABCR 40 MEQ PO (09:17)
[2019-05-21] MEDS: Cholecalciferol (Vitamin D3) 1,000 UNIT TAB 2000 UNITS PO (09:17)
[2019-05-21] MEDS: Spironolactone 25 MG TAB PO (09:18)
[2019-05-21] MEDS: SUMAtriptan 50 MG TAB PO (10:59)
[2019-05-21 11:20] VITALS: BP 174/77; PULSE 54; RESP 18; TEMP 36.6; O2SAT 100
--- NOTE | 2019-05-21 12:13 | DSE_ITS ---
Date of service: 05/21/19 Time of Service: 12:13 DS: Diagnosis Discharge Diagnosis (1) Elevated troponin: Status: Acute (2) Essential hypertension: Status: Chronic (3) Hypokalemia: Status: Chronic Discharge Plan Disposition Patient Disposition: HOME Condition: Improving Discharge Details Chief Complaint: GenMedical Reason For Visit: HYPOKALEMIA Admit Date/Time: 05/20/19 19:08 Admit Provider: Suraj Sotelo Attending Provider: Suraj Sotelo Primary Care Provider: Angela Gleason ED Provider: [facility] Course Hospital Course: Patient is a 53-year-old -[place] female who presents via wheelchair by her significant other with headache and altered mental status. Patient is hyperventilating upon arrival and has jerking like activity to her extremities. She is able to follow commands and stops jerking when is distracted. Patient does have a history of migraine headaches, hypertension, hypokalemia, chronic right upper quadrant abdominal pain. She did have a telehealth note in her records from yesterday complaining of dizziness. On arrival she denies chest pain. Gross neuro exam is intact, no facial droop, lungs are clear to auscultation bilaterally abdomen is soft non tender to palpation. She denies any drugs or alcohol upon arrival. Work up revealed a potassium of 1.9, her magnesium level was 2.0. rest of work up including EKG were unremarkable. a head CT is pending at time of admission. she was given 40 meq of oral potassium and 20 meq of IVPB potassium. she was referred to observation. she remained in sinus rhythm on the monitor. she continued to receive potassium replacement with improvement in her symptoms. a repeat troponin which was carryover ED order did result elevated at 0.2, she reports no chest pain. this was trended and improved to 0.16, again, she has remained chest pain free. it is thought that this could represent troponin leak in setting of tachycardia and severe hypokalemia. She was given aspirin and her metoprolol was increased which improved her heart rate to the 50-70's. she will be advised to increase metoprolol to 50 mg daily from 25 mg at discharge. she will also be order to have outpatient cardiac stress testing as it is not available today. her HCTZ was discontinued and she was started on spironalactone. labs pending at discharge are aldosterone and plasma renin activity. she will also be instructed to repeat BMP on SundayMay 22 to be followed up with by pcp. Home Meds and New Rx's Prescriptions: New spironolactone 25 mg Tablet 25 mg PO DAILY Qty: 30 RF: 0 Continued cyclobenzaprine 10 mg tablet 10 mg PO HS PRN (Reason: muscle spasm) Qty: 30 RF: 3 Hold Instructions: Home Medication placed on hold at Doctor's office omega-3 fatty acids 1 each PO DAILY RF: 0 metoprolol succinate 25 mg tablet extended release 24 hr 25 mg PO DAILY Qty: 90 RF: 3 potassium chloride 20 mEq tablet extended release 20 meq PO DAILY Qty: 90 RF: 3 sumatriptan succinate 50 mg tablet 50 mg PO ONCE MDD 200 mg PRN (Reason: migraine) Qty: 30 RF: 0 ketotifen fumarate [Allergy Eye (ketotifen)] 0.025 % (0.035 %) drops 1 drp OP BID PRN (Reason: allergy symptoms) Qty: 5 RF: 0 magnesium gluconate 27.5 mg magne- sium (500 mg) tablet 27.5 mg PO BID RF: 0 hydrocortisone 2.5 % cream 1 applic TP BID PRNQty: 30 RF: 1 cholecalciferol (vitamin D3) [Vitamin D3] 2,000 UNIT tablet 2,000 unit PO DAILY RF: 0 Discontinued hydrochlorothiazide 25 mg tablet 25 mg PO DAILY Qty: 90 RF: 0 No Action lorazepam 1 mg tablet 1 mg PO TID PRN (Reason: anxiety) Qty: 10 RF: 0 Discharge Instructions Instructions: Hypokalemia (DC), Hypertension (DC) Additional Instructions: your troponin was elevated while you were hospitalized. It is not clear why this was. You will need outpatient work up to rule out heart disease. you will be scheduled for a stress test. Your primary care provider will follow you Stand Alone Forms: Nursing Discharge Form Referrals: Angela Gleason NP [Primary Care Provider] - 05/26/19 3:00 pm (3-5 days will need outpatient cardiac stress testing BY PHONE ) Activity:: Activity as Tolerated Equipment/Supplies:: No Equipment Needed Diet:: As Tolerated Discharge Orders Discharge Orders: Discharge Order (Routine); Ordered 05/21/19 Ordered By: Cesilia Obrien Other Ambulatory Orders: Basic Metabolic Panel (Routine) Timeframe: [id number] Location: None Selected Ordered By: Cesilia Obrien Discharge Data Discharge Date/Time-TO BE ENTERED AT DEPARTURE: 05/21/19 15:05 DS: Summary Status at Discharge Functional status at discharge: independent ambulation Overall status at discharge: patient is progressing back to baseline Mental Status: mental status grossly normal Speech and Movement: speech and movement normal Mood: congruent mood Affect: normal affect Exam Narrative Exam Narrative: -[place] female of stated age, appears anxious. in no acute distress, warm dry and well perfused. HEENT: normocephalic atraumatic, non-icteric, EOM's intact, oral mucosa slightly dry NECK: supple, CV RRR, sinus rhythm to sinus pato no acute ST segment changes Lungs: respirations even and unlabored. abdomen: obese, soft non tender with positive bowel sounds neuro: awake oriented, no focal deficits psyche: anxious, flat affect. Psych Mental Status: mental status grossly normal Speech and Movement: speech and movement normal Mood: congruent mood Affect: normal affect DS: Data Vitals/I&O Vitals and I&O: Vital Signs Temperature 36.6 C 05/21/19 11:20 Temperature Source Temporal Artery Scan 05/21/19 11:20 Pulse 54 L 05/21/19 11:20 Pulse Rhythm Regular 05/21/19 10:18 Pulse 77 05/20/19 16:22 Respiratory Rate 18 05/21/19 11:20 Respiratory Effort Non-Labored 05/21/19 10:18 Respiratory Depth Normal 05/21/19 10:18 Respiratory Pattern Normal 05/21/19 10:18 Blood Pressure 174/77 H 05/21/19 11:20 Blood Pressure Mean 117 05/20/19 15:45 Blood Pressure Position Sitting 05/20/19 15:06 Pulse Oximetry 100 05/21/19 11:20 Oxygen Delivery Method Room Air 05/21/19 11:20 Oxygen Flow Rate 0 05/21/19 11:20 Pain Level 0 05/21/19 11:20 Intake & Output 05/20/19 05/21/19 05/21/19 23:59 11:59 23:59 Intake Total 1497.5 / 1497.5 1250 / 1250 Output Total 1400 / 1400 700 / 700 Balance 97.5 / 97.5 550 / 550 Weight 109.3 kg 101.9 kg Intake: IV 1047.5 / 1047.5 Oral 450 / 450 1250 / 1250 Output: Urine 1400 / 1400 700 / 700 Other: Urine Color Pale Yellow Urine Appearance Clear Clear Voiding Methods Toilet Data Completed and Pending Labs on day of discharge: Labs from last 24 hours 05/21/19 05/20/19 05/20/19 06:10 23:00 19:15 WBC RBC Hgb Hct MCV MCH MCHC RDW Plt Count MPV Immature Gran % Neutrophils % Lymphocytes % Monocytes % Eosinophils % Basophils % Absolute Neutrophils Absolute Lymphocytes Absolute Monocytes Absolute Eosinophils Absolute Basophils Differential Comment RBC Morphology Sodium 143 143 Potassium 3.6 3.0 L D Chloride 108 H 105 Carbon Dioxide 29.2 29.9 Anion Gap 5.8 8.1 BUN 12 13 Creatinine 0.88 0.94 Estimated GFR/1.73 m2 >= 60.00 >= 60.00 Glucose 104 107 H Calcium 9.0 9.3 Magnesium Total Bilirubin AST ALT Alkaline Phosphatase Creatine Kinase Troponin I 0.16 H* Total Protein Albumin Renin Activity Aldosterone Urine Color Urine Clarity Urine pH Ur Specific [place] Urine Protein Urine Ketones Urine Blood Urine Nitrite Urine Bilirubin Urine Urobilinogen Ur Leukocyte Esterase Urine RBC Urine WBC Ur Epithelial Cells Urine Crystals Urine Bacteria Urine Casts Urine Mucus Urine Other Ur Culture Indicated? Urine Glucose Salicylates Urine Opiates Screen Urine Methadone Screen Acetaminophen Ur Barbiturates Screen Ur Tricyclics Screen Ur Amphetamines Screen U Benzodiazepines Scrn Urine Cocaine Screen Ur THC Screen Path Cons Comment 05/20/19 05/20/19 05/20/19 19:15 19:15 19:15 WBC RBC Hgb Hct MCV MCH MCHC RDW Plt Count MPV Immature Gran % Neutrophils % Lymphocytes % Monocytes % Eosinophils % Basophils % Absolute Neutrophils Absolute Lymphocytes Absolute Monocytes Absolute Eosinophils Absolute Basophils Differential Comment RBC Morphology Sodium Potassium Chloride Carbon Dioxide Anion Gap BUN Creatinine Estimated GFR/1.73 m2 Glucose Calcium Magnesium Total Bilirubin AST ALT Alkaline Phosphatase Creatine Kinase Troponin I 0.21 H* Total Protein Albumin Renin Activity Pending Aldosterone Pending Urine Color Urine Clarity Urine pH Ur Specific [place] Urine Protein Urine Ketones Urine Blood Urine Nitrite Urine Bilirubin Urine Urobilinogen Ur Leukocyte Esterase Urine RBC Urine WBC Ur Epithelial Cells Urine Crystals Urine Bacteria Urine Casts Urine Mucus Urine Other Ur Culture Indicated? Urine Glucose Salicylates Urine Opiates Screen Urine Methadone Screen Acetaminophen Ur Barbiturates Screen Ur Tricyclics Screen Ur Amphetamines Screen U Benzodiazepines Scrn Urine Cocaine Screen Ur THC Screen Path Cons Comment 05/20/19 05/20/19 05/20/19 17:05 17:05 15:07 WBC RBC Hgb Hct MCV MCH MCHC RDW Plt Count MPV Immature Gran % Neutrophils % Lymphocytes % Monocytes % Eosinophils % Basophils % Absolute Neutrophils Absolute Lymphocytes Absolute Monocytes Absolute Eosinophils Absolute Basophils Differential Comment RBC Morphology Sodium Potassium Chloride Carbon Dioxide Anion Gap BUN Creatinine Estimated GFR/1.73 m2 Glucose Calcium Magnesium Total Bilirubin AST ALT Alkaline Phosphatase Creatine Kinase 182 Troponin I Total Protein Albumin Renin Activity Aldosterone Urine Color Straw Urine Clarity Clear Urine pH 7.5 Ur Specific [place] 1.015 Urine Protein Negative Urine Ketones Negative Urine Blood Trace-intact H Urine Nitrite Negative Urine Bilirubin Negative Urine Urobilinogen 0.2 Ur Leukocyte Esterase Negative Urine RBC Negative Urine WBC Negative Ur Epithelial Cells Few Urine Crystals Negative Urine Bacteria Negative Urine Casts Negative Urine Mucus Negative Urine Other Negative Ur Culture Indicated? No Urine Glucose Negative Salicylates Urine Opiates Screen Negative Urine Methadone Screen Negative Acetaminophen Ur Barbiturates Screen Negative Ur Tricyclics Screen Negative Ur Amphetamines Screen Negative U Benzodiazepines Scrn Negative Urine Cocaine Screen Negative Ur THC Screen Negative Path Cons Comment 05/20/19 05/20/19 05/20/19 15:06 15:06 15:06 WBC 12.34 H RBC 4.67 Hgb 13.5 Hct 39.3 MCV 84.2 MCH 28.9 MCHC 34.4 RDW 13.6 Plt Count 370 D MPV 10.5 Immature Gran % 0.2 Neutrophils % 24.7 Lymphocytes % 66.5 Monocytes % 5.8 Eosinophils % 2.2 Basophils % 0.6 Absolute Neutrophils 3.05 Absolute Lymphocytes 8.21 H Absolute Monocytes 0.72 H Absolute Eosinophils 0.27 Absolute Basophils 0.07 Differential Comment Agrees w/ instrument RBC Morphology Normal Sodium 140 Potassium 1.9 L* Chloride 100 Carbon Dioxide 20.4 L Anion Gap 19.6 H BUN 16 Creatinine 1.26 H Estimated GFR/1.73 m2 44.59 Glucose 154 H Calcium 9.7 Magnesium 2.0 Total Bilirubin 0.5 AST 18 ALT 23 Alkaline Phosphatase 103 Creatine Kinase Troponin I < 0.05 Total Protein 8.4 H Albumin 4.1 Renin Activity Aldosterone Urine Color Urine Clarity Urine pH Ur Specific [place] Urine Protein Urine Ketones Urine Blood Urine Nitrite Urine Bilirubin Urine Urobilinogen Ur Leukocyte Esterase Urine RBC Urine WBC Ur Epithelial Cells Urine Crystals Urine Bacteria Urine Casts Urine Mucus Urine Other Ur Culture Indicated? Urine Glucose Salicylates < 2.8 Urine Opiates Screen Urine Methadone Screen Acetaminophen < 2 Ur Barbiturates Screen Ur Tricyclics Screen Ur Amphetamines Screen U Benzodiazepines Scrn Urine Cocaine Screen Ur THC Screen Path Cons Comment Pending [facility] Medical History (Updated 05/22/19 @ 05:05 by Eusebio Peralta MD) Abdominal pain in female (Acute) Anxiety and depression (Chronic) Breast discharge (Chronic) 04/11/2018 [facility] [place] [facility] consult: normal, monitor Chronic back pain (Acute) Chronic tension type headache (Chronic) Diffuse cystic mastopathy of both breasts (Chronic) Dysgeusia (Resolved) Dysmenorrhea (Chronic) H/o iron deficiency with menses Essential hypertension (Chronic) Hyperlipidemia (Chronic 10/10/17) 09/2017 labs: 10-year ASCVD risk = ~5.9% --> no statin indicated at this time Hypokalemia (Chronic) IFG (impaired fasting glucose) (Chronic 10/10/17) Migraines (Chronic) Polyp of cecum (Inactive ~03/11/18) Uterine fibroid (Chronic) Pt reports h/o, also seen on 04/11/2018 CT Family History Mother Diabetes Essential hypertension Father Heart disease Sister , Cancer Neoplasm Cancer Sister No problems noted. Brother No problems noted. Brother No problems noted. Daughter Heart disease Social History Smoking/Tobacco Use Status: Never Second Hand Exposure: Yes Alcohol Intake: former Drug use: Never Substance use type: does not use Details: ate marijuana brownies 08/15/18 bad reaction Adopted: No Caregiver/Support person: No Foster care: No Household members: spouse Number of Children: 3 Communication Needs: None current occupation: House cleaning Pets and animals: No Sexually active: Yes Do you think of yourself as: straight/heterosexual Current gender identity: female What type of physical activity do you participate in: walking Duration: 15-30 minutes/day Do you feel safe at home: Yes Do you feel safe in your relationship?: Yes
[2019-05-21 12:23] VITALS: BP 154/84; PULSE 80
--- NOTE | 2019-05-21 13:37 | W.NUTCONSULT ---
Date of service: 05/21/19 Time of Service: 13:37 Nutritional Consult ASSESSMENT: 53 year old female admitted with abdominal pain, elevated troponin, chronic back pain, functional bowel disorder. Following regular diet with excellent intake (100%). BMI indicates class 1 obesity. Not at risk for nutritional decline at this time. MONITORING AND EVALUATION: weight, po intake, labs Time Spent in Nutritional Counseling and Treatment: 0 time spent face to face
[2019-05-23 08:32] LABS: Renin Activity, Plasma <0.6 ng/mL/h
== END 2019-05-21 15:05 | disposition home or self-care (01) | DRG 948 ==
LOC: ER 15:09 → MS 20:07
PROVIDERS: Family Medicine; Nurse Practitioner Acute Care; Admitting Provider Family Medicine; Emergency Provider Registered Nurse Emergency; PCP Nurse Practitioner Family; Visit Provider Family Medicine
DX: G43.909 Migraine, unspecified, not intractable, without status migrainosus (principal); I10 Essential (primary) hypertension; E87.6 Hypokalemia; R79.89 Other specified abnormal findings of blood chemistry; F41.8 Other specified anxiety disorders
CPT/HCPCS: 36415; 80048; 80053; 80307; 82550; 93005; 96361; 96365; 96375; 99217; 99220; 99285; 99357; 70450; 71045; 80329; 81003; 81015; 82088; 83735; 84244; 84484; 85025; 93010; 99238; 99284; 99356; J1644; J2060; J3480

== ENCOUNTER 2019-05-22 04:16 | Emergency (ER) | payer OTHER, SELFPAY ==
[2019-05-22] VITALS (13 sets, daily range): BP systolic 139–182; BP diastolic 74–98; PULSE 57–81; RESP 12–46; TEMP 36.6; O2SAT 95–100
--- NOTE | 2019-05-22 04:27 | ED.GENADUL_ITS ---
Discharge Plan Disposition Patient Disposition: HOME Condition: Stable Discharge Details Chief Complaint: Anxiety Clinical Impression: Migraines, Panic attack Primary Care Provider: Angela Gleason ED Provider: Eusebio Peralta Home Meds and New Rx's Prescriptions: New lorazepam 1 mg tablet 1 mg PO TID PRN (Reason: anxiety) Qty: 10 RF: 0 Continued cyclobenzaprine 10 mg tablet 10 mg PO HS PRN (Reason: muscle spasm) Qty: 30 RF: 3 Hold Instructions: Home Medication placed on hold at Doctor's office omega-3 fatty acids 1 each PO DAILY RF: 0 metoprolol succinate 25 mg tablet extended release 24 hr 25 mg PO DAILY Qty: 90 RF: 3 potassium chloride 20 mEq tablet extended release 20 meq PO DAILY Qty: 90 RF: 3 sumatriptan succinate 50 mg tablet 50 mg PO ONCE MDD 200 mg PRN (Reason: migraine) Qty: 30 RF: 0 ketotifen fumarate [Allergy Eye (ketotifen)] 0.025 % (0.035 %) drops 1 drp OP BID PRN (Reason: allergy symptoms) Qty: 5 RF: 0 magnesium gluconate 27.5 mg magne- sium (500 mg) tablet 27.5 mg PO BID RF: 0 hydrocortisone 2.5 % cream 1 applic TP BID PRNQty: 30 RF: 1 cholecalciferol (vitamin D3) [Vitamin D3] 2,000 UNIT tablet 2,000 unit PO DAILY RF: 0 spironolactone 25 mg Tablet 25 mg PO DAILY Qty: 30 RF: 0 Discharge Instructions Instructions: Panic Attack (ED) Additional Instructions: follow up with your primary care provider with regards to your migraines and anxiety/panic attacks return to the emergency department if you feel more ill or have high fevers do not drink alcohol or drive if you take the lorazepam Smoking in the house can be cause of frequent headaches and migraines Medical Decision Making 53 yo female with hx of migraines, chronic abdominal pain, htn, anxiety, who was d/c'd yesterday after an episode of panic attack in setting of hypokalemia and had mild increase in troponin likely from sinus tachycardia per chart review, comes in with what appears to be a panic attack. She is hyperventilating, and twitches her arms and legs sporadically, but when spoken to or distracted stops and speaks in clear sentences. Denies any current chest pain, abdominal pain, does have a headache typical for her chronic migraines per patient and is not the worst of her life. HD stable on arrival. Will tx with ativan and reassess. pt now less anxious and feels better. She has only mild headache. She does state her smokes in the house and she feels it makes her headaches more frequent. I advised her to f/u with pcp and return precautions given Differential Diagnosis Differential Diagnosis: panic attack, anxiety, migraine Medical Records Medical records reviewed: Yes I reviewed the patient's medical records. ECG Data Attestation: I personally reviewed and interpreted this ECG (s) as follows: Prior ECG tracings: not available for review Interpretation: sinus rhythm, rate of 89, pr 158, no acute st t wave ischemic changes HPI General Mode of arrival: wheelchair . Date/Time Provider Initiated Documentation: 05/22/19 04:19 . Information obtained by: patient . History of Present Illness 53 year old F presents to the emergency department with the chief complaint of stressed out, described as moderate, Patient started experiencing this hour(s) (2) No relieving factors improve symptom(s), No exacerbating factors reported . Patient did receive the following treatments prior to arrival, none Related Data Home Medications Medication Instructions Recorded Confirmed cholecalciferol (vitamin D3) 2,000 unit PO DAILY 05/18/17 05/20/19 [Vitamin D3] cyclobenzaprine 10 mg tablet 10 mg PO HS PRN #30 tab 11/13/18 05/20/19 magnesium gluconate 27.5 mg 27.5 mg PO BID 04/08/19 05/20/19 magnesium (500 mg) tablet metoprolol succinate 25 mg 25 mg PO DAILY #90 tab-cap 05/12/19 05/20/19 tablet,extended release 24 hr omega-3 fatty acids 1 each PO DAILY 05/12/19 05/20/19 potassium chloride 20 mEq 20 meq PO DAILY #90 tab-cap 05/12/19 05/20/19 tablet,extended release hydrocortisone 1 applic TP BID PRN #30 gm 05/15/19 05/20/19 ketotifen fumarate 0.025 % (0.035 1 drp OP BID PRN #5 ml 05/19/19 05/20/19 %) eye drops sumatriptan succinate 50 mg tablet 50 mg PO ONCE PRN #30 tab-cap MDD 05/19/19 05/20/19 200 mg spironolactone 25 mg PO DAILY #30 tab 05/21/19 lorazepam 1 mg PO TID PRN #10 tab 05/22/19 Previous Rx's Medication Instructions Recorded cyclobenzaprine 10 mg tablet 10 mg PO HS PRN #30 tab 11/13/18 metoprolol succinate 25 mg 25 mg PO DAILY #90 tab-cap 05/12/19 tablet,extended release 24 hr potassium chloride 20 mEq 20 meq PO DAILY #90 tab-cap 05/12/19 tablet,extended release hydrocortisone 1 applic TP BID PRN #30 gm 05/15/19 ketotifen fumarate 0.025 % (0.035 1 drp OP BID PRN #5 ml 05/19/19 %) eye drops sumatriptan succinate 50 mg tablet 50 mg PO ONCE PRN #30 tab-cap MDD 05/19/19 200 mg spironolactone 25 mg PO DAILY #30 tab 05/21/19 lorazepam 1 mg PO TID PRN #10 tab 05/22/19 Allergies Allergy/AdvReac Type Severity Reaction Status Date / Time acetaminophen [From Tylenol] AdvReac Intermediate Headache/[place] Verified 05/19/19 10:42 Tight extra strength lisinopril AdvReac Headache Verified 05/19/19 10:42 General AISHA: 3 Review of Systems All systems reviewed & are unremarkable except as noted in HPI and below Constitutional Constitutional: Denies chills and Denies fever(s) Cardiovascular Cardiovascular: Denies chest pain and Denies dyspnea Respiratory Respiratory: Denies cough and Denies dyspnea Gastrointestinal Gastrointestinal: Denies abdominal pain, Denies nausea and Denies vomiting Psychiatric Psychiatric: Denies depression [facility] Medical History (Updated 05/22/19 @ 05:05 by Eusebio Peralta MD) Abdominal pain in female (Acute) Anxiety and depression (Chronic) Breast discharge (Chronic) [place] [facility] [place] [facility] consult: normal, monitor Chronic back pain (Acute) Chronic tension type headache (Chronic) Diffuse cystic mastopathy of both breasts (Chronic) Dysgeusia (Resolved) Dysmenorrhea (Chronic) H/o iron deficiency with menses Essential hypertension (Chronic) Hyperlipidemia (Chronic 10/10/17) 09/2017 labs: 10-year ASCVD risk = ~5.9% --> no statin indicated at this time Hypokalemia (Chronic) IFG (impaired fasting glucose) (Chronic 10/10/17) Migraines (Chronic) Polyp of cecum (Inactive ~03/11/18) Uterine fibroid (Chronic) Pt reports h/o, also seen on 04/11/2018 CT Social History Smoking/Tobacco Use Status: Never Second Hand Exposure: Yes Alcohol Intake: former Drug use: Never Substance use type: does not use Details: ate marijuana brownies 08/15/18 bad reaction Adopted: No Caregiver/Support person: No Foster care: No Household members: spouse Number of Children: 3 Communication Needs: None current occupation: House cleaning Pets and animals: No Sexually active: Yes Do you think of yourself as: straight/heterosexual Current gender identity: female What type of physical activity do you participate in: walking Duration: 15-30 minutes/day Do you feel safe at home: Yes Do you feel safe in your relationship?: Yes Exam Const General: anxious Orientation: alert HENMT Head: normal to inspection Ears: external ears normal General nose exam: external nose normal Mouth: moist mucous membranes Eyes General: appearance normal, both eyes and all related structures Neck Neck: normal visual inspection Resp Effort & Inspection: normal respiratory effort and able to speak in complete sentences Cardio Rate: regular rate Skin General skin exam: no rashes or lesions noted Neuro General: patient alert and patient oriented x3 Extrem General: normal to inspection Psych Mental Status: mental status grossly normal
[2019-05-22] MEDS: LORazepam 2 MG/ML VIAL IM (04:39)
--- NOTE | 2019-05-22 04:49 | NUR.NOTE ---
Nursing Note: Pt intermittently holding breath and watching monitor on the wall. Pt asks that the write for her to stop smoking weed in the house as it gives her a headache.
[2019-05-22] MEDS: Acetaminophen 500 MG TAB (05:27)
== END 2019-05-22 05:25 | disposition home or self-care (01) ==
PROVIDERS: Emergency Provider Emergency Medicine; PCP Nurse Practitioner Family
DX: F41.0 Panic disorder [episodic paroxysmal anxiety] (principal); G43.909 Migraine, unspecified, not intractable, without status migrainosus; I10 Essential (primary) hypertension
CPT/HCPCS: 93005; 96372; 99284; 93010; J2060

== ENCOUNTER 2019-05-23 01:53 | Outpatient (CLI) | payer OTHER, SELFPAY ==
[2019-05-23 15:47] LABS: Anion Gap 6.9 mmol/L (3-11); BUN 11 mg/dL (7-18); CO2 32.1 mmol/L (21.0-32.0); CREATININE 0.89 mg/dL (0.55-1.02); Calcium 9.6 mg/dL (8.5-10.1); Chloride 104 mmol/L (98-107); Glucose 114 mg/dL (74-106); Potassium 3.9 mmol/L (3.5-5.1); Sodium 143 mmol/L (136-145)
== END 2019-05-23 02:13 ==
PROVIDERS: PCP Nurse Practitioner Family; Visit Provider Family Medicine
DX: I10 Essential (primary) hypertension (principal); R79.89 Other specified abnormal findings of blood chemistry
CPT/HCPCS: 36415; 80048; 83880

== ENCOUNTER 2019-05-26 08:49 | Emergency (ER) | payer OTHER, SELFPAY ==
[2019-05-26] VITALS (21 sets, daily range): BP systolic 132–161; BP diastolic 55–81; PULSE 53–82; RESP 16–39; TEMP 36.2–36.7; O2SAT 99–100
--- NOTE | 2019-05-26 09:15 | ED.GENADUL_ITS ---
Discharge Plan Disposition Patient Disposition: HOME Condition: Stable Discharge Details Chief Complaint: GenMedical Clinical Impression: Headache, Generalized weakness Primary Care Provider: Angela Gleason ED Provider: Maranda Girard Home Meds and New Rx's Prescriptions: New ulnymcuddl-hszqacvemkwbi-knul [Fioricet] 50-300-40 mg capsule 1 cap PO Q8H PRN (Reason: pain) Qty: 10 RF: 0 Continued cyclobenzaprine 10 mg tablet 10 mg PO HS PRN (Reason: muscle spasm) Qty: 30 RF: 3 Hold Instructions: Home Medication placed on hold at Doctor's office omega-3 fatty acids 1 each PO DAILY RF: 0 metoprolol succinate 25 mg tablet extended release 24 hr 25 mg PO DAILY Qty: 90 RF: 3 potassium chloride 20 mEq tablet extended release 20 meq PO DAILY Qty: 90 RF: 3 sumatriptan succinate 50 mg tablet 50 mg PO ONCE MDD 200 mg PRN (Reason: migraine) Qty: 30 RF: 0 ketotifen fumarate [Allergy Eye (ketotifen)] 0.025 % (0.035 %) drops 1 drp OP BID PRN (Reason: allergy symptoms) Qty: 5 RF: 0 magnesium gluconate 27.5 mg magne- sium (500 mg) tablet 27.5 mg PO BID RF: 0 hydrocortisone 2.5 % cream 1 applic TP BID PRNQty: 30 RF: 1 cholecalciferol (vitamin D3) [Vitamin D3] 2,000 UNIT tablet 2,000 unit PO DAILY RF: 0 spironolactone 25 mg Tablet 25 mg PO DAILY Qty: 30 RF: 0 lorazepam 1 mg tablet 1 mg PO TID PRN (Reason: anxiety) Qty: 10 RF: 0 Discharge Instructions Instructions: Weakness (ED), General Headache (ED) Additional Instructions: Follow up with primary care provider in 3-5 days. Return to ED sooner if any worsening or concerns. Increase oral fluids. Keep appointment for stress test on , also keep PCP appointment which is scheduled for the . Take medications as directed. Referrals: Deepali Barragan [NURSE PRACTITIONER] - Angela Gleason, RACE RELATIONS ADVISER [Primary Care Provider] - Shane Longoria [ NON-[facility] STAFF PHYSICIAN] - Lucy Cheema MD [ [facility] STAFF PHYSICIAN] - Discharge Data Discharge Date/Time-TO BE ENTERED AT DEPARTURE: 05/26/19 10:36 Medical Decision Making 53-year-old female presents with weakness, and chronic migraine. Patient was seen in the ED twice last week was admitted May 19 discharged on May 20 for hypokalemia mildly elevated troponin. She was seen again on May 22 for anxiety. She was given lorazepam quantity #10. She states that she takes Flexeril for her headaches and was recently switched from sumatriptan. She states that this is not working. She does have a history of anxiety and depression, chronic tension type headache, hypertension, hypokalemia, migraines. On initial exam she has no focal neuro deficits she is alert and oriented x4. 0932: Spoke with Keeley with case management regarding patient patient does have a outpatient primary care [facility] appointment on the and also is scheduled for a stress test on May 28 which is 3 days from now. Case management is going to do a 24-hour follow-up call. EKG obtained normal sinus rhythm rate of 66, no ST elevation or depression, no change from previous EKG. Patient was given Zofran 4 mg and sumatriptan 6 mg subcu. 1 L normal saline. 30 mg of Toradol IV. 1008: Patient ambulatory without assistance in department up to the bathroom. She has a steady gait. Labs reviewed, potassium is 3.7 WBCs 8.95, sodium is 140 glucose is mildly elevated at 126. Initial troponin is negative. Urine has no leukocytes no nitrites trace blood. At this time patient's work-up is largely within normal limits. Patient expected disposition is discharged home with previously scheduled follow-up with PCP on the and a stress test on . Patient prescribed Fioricet to try at home, patient to be discharged. Medical Records Medical records reviewed: Yes I reviewed the patient's medical records. Lab Data Lab results reviewed: Yes I reviewed the patient's lab results. HPI General Mode of arrival: wheelchair . Date/Time Provider Initiated Documentation: 05/26/19 08:50 . Limitations to Documentation: no limitations . Information obtained by: patient . HPI Narrative: 53-year-old female presents with weakness, and chronic migraine. Patient was seen in the ED twice last week was admitted May 19 discharged on May 20 for hypokalemia mildly elevated troponin. She was seen again on May 22 for anxiety. She was given lorazepam quantity #10. She states that she takes Flexeril for her headaches and was recently switched from sumatriptan. She states that this is not working. She does have a history of anxiety and depression, chronic tension type headache, hypertension, hypokalemia, migraines. On initial exam she has no focal neuro deficits she is alert and oriented x4. Related Data Home Medications Medication Instructions Recorded Confirmed cholecalciferol (vitamin D3) 2,000 unit PO DAILY 05/18/17 05/26/19 [Vitamin D3] cyclobenzaprine 10 mg tablet 10 mg PO HS PRN #30 tab 11/13/18 05/26/19 magnesium gluconate 27.5 mg 27.5 mg PO BID 04/08/19 05/26/19 magnesium (500 mg) tablet metoprolol succinate 25 mg 25 mg PO DAILY #90 tab-cap 05/12/19 05/26/19 tablet,extended release 24 hr omega-3 fatty acids 1 each PO DAILY 05/12/19 05/26/19 potassium chloride 20 mEq 20 meq PO DAILY #90 tab-cap 05/12/19 05/26/19 tablet,extended release hydrocortisone 1 applic TP BID PRN #30 gm 05/15/19 05/26/19 ketotifen fumarate 0.025 % (0.035 1 drp OP BID PRN #5 ml 05/19/19 05/26/19 %) eye drops sumatriptan succinate 50 mg tablet 50 mg PO ONCE PRN #30 tab-cap MDD 05/19/19 05/26/19 200 mg spironolactone 25 mg PO DAILY #30 tab 05/21/19 05/26/19 lorazepam 1 mg PO TID PRN #10 tab 05/22/19 05/26/19 ezpnijtcsn-cxibzfhkctdxe-ormo 1 cap PO Q8H PRN #10 cap 05/26/19 [Fioricet] Previous Rx's Medication Instructions Recorded cyclobenzaprine 10 mg tablet 10 mg PO HS PRN #30 tab 11/13/18 metoprolol succinate 25 mg 25 mg PO DAILY #90 tab-cap 05/12/19 tablet,extended release 24 hr potassium chloride 20 mEq 20 meq PO DAILY #90 tab-cap 05/12/19 tablet,extended release hydrocortisone 1 applic TP BID PRN #30 gm 05/15/19 ketotifen fumarate 0.025 % (0.035 1 drp OP BID PRN #5 ml 05/19/19 %) eye drops sumatriptan succinate 50 mg tablet 50 mg PO ONCE PRN #30 tab-cap MDD 05/19/19 200 mg spironolactone 25 mg PO DAILY #30 tab 05/21/19 lorazepam 1 mg PO TID PRN #10 tab 05/22/19 aisordxync-ucgpemfonakng-sdcj 1 cap PO Q8H PRN #10 cap 05/26/19 [Fioricet] Allergies Allergy/AdvReac Type Severity Reaction Status Date / Time acetaminophen [From Tylenol] AdvReac Intermediate Headache/[place] Verified 05/26/19 09:01 Tight extra strength lisinopril AdvReac Headache Verified 05/26/19 09:01 General Stated Complaint: GenMedical AISHA: 2 Review of Systems Narrative: Constitutional: Negative for weight loss, alert and oriented, well groomed, normal body habitus, appears comfortable. Reports generalized weakness. HEENT: Denies trauma, blurry vision, nasal discharge, sore throat, trouble swallowing. Chest: Denies chest pain, palpitations, irregular rhythm. Respiratory: Denies Shortness of breath, cough, hemoptysis. GI: Denies abdominal pain, nausea, vomiting, diarrhea, constipation. : Denies dysuria, hematuria, flank pain, rectal bleeding. Neuro: Denies syncope, facial numbness. Reports right-sided headache does have a history of chronic migraines. Hematologic: Denies easy bruising, intolerance to heat or cold, hair loss. [facility] Medical History Abdominal pain in female (Acute) Anxiety and depression (Chronic) Breast discharge (Chronic) 04/11/2018 [facility] consult: normal, monitor Chronic back pain (Acute) Chronic tension type headache (Chronic) Diffuse cystic mastopathy of both breasts (Chronic) Dysgeusia (Resolved) Dysmenorrhea (Chronic) H/o iron deficiency with menses Essential hypertension (Chronic) Hyperlipidemia (Chronic 10/10/17) 09/2017 labs: 10-year ASCVD risk = ~5.9% --> no statin indicated at this time Hypokalemia (Chronic) IFG (impaired fasting glucose) (Chronic 10/10/17) Migraines (Chronic) Polyp of cecum (Inactive ~03/11/18) Uterine fibroid (Chronic) Pt reports h/o, also seen on 04/11/2018 CT Social History Smoking/Tobacco Use Status: Never Second Hand Exposure: Yes Alcohol Intake: former Drug use: Never Substance use type: does not use Details: ate marijuana brownies 08/15/18 bad reaction Adopted: No Caregiver/Support person: No Foster care: No Household members: spouse Number of Children: 3 Communication Needs: None current occupation: House cleaning Pets and animals: No Sexually active: Yes Do you think of yourself as: straight/heterosexual Current gender identity: female What type of physical activity do you participate in: walking Duration: 15-30 minutes/day Do you feel safe at home: Yes Do you feel safe in your relationship?: Yes Exam Narrative Exam Narrative: Constitutional: Alert and oriented x3. Appears stated age. Normal body habitus. Head: Normocephalic, no trauma. Eyes: Pupils PERRLA, Red reflex noted, EOM's intact. Eyelids symmetrical without lesions, discharge, or swelling. ENT: Bilateral TM's WNL, External ear normal to inspection, no mastoid TTP, swelling, or erythema, Nasal turbinates WNL, no nasal discharge. Normal dentition, Posterior pharynx WNL, no exudate. Chest: RRR, Normal S1, S2, distal pulses intact. Resp: Lungs clear to auscultation bilaterally, no wheezes, rales, or rhonchi. Skin: No suspicious rashes or lesions. Capillary refill less than 2 sec. Neurologic: Cranial nerves II-XII intact. Alert and oriented x 3. DTR's intact. Normal gqyq-ho-qtky intact dorsal flexion and plantar flexion. Hematologic/Lymphatic: No ecchymosis, no lymphadenopathy. Course Vital Signs Vital signs: Vital Signs Temperature 36.2 C L 05/26/19 08:56 Pulse 77 05/26/19 08:56 Respiratory Rate 16 05/26/19 08:56 Blood Pressure 161/80 H 05/26/19 08:56 Pulse Oximetry 100 05/26/19 08:56 Temperature 36.2 C L 05/26/19 08:56 Temperature Source Skin 05/26/19 08:56 Pulse 77 05/26/19 08:56 Respiratory Rate 16 05/26/19 08:56 Respiratory Effort Non-Labored 05/26/19 08:56 Blood Pressure 161/80 H 05/26/19 08:56 Blood Pressure Position Sitting 05/26/19 08:56 Pulse Oximetry 100 05/26/19 08:56 Oxygen Delivery Method Room Air 05/26/19 08:56 Oxygen Flow Rate 0 05/26/19 08:56 Pain Level 8 05/26/19 08:56
[2019-05-26 09:22] LABS: Abs Immature Grans 0.02 k/cumm (0.0-0.09); Absolute Basophil Count 0.08 k/cumm (0.0-0.2); Absolute Eosinophil Count 0.22 k/cumm (0.0-0.7); Absolute Lymphocyte Count 5.23 k/cumm (1.2-3.4); Absolute Monocyte Count 0.43 k/cumm (0.11-0.7); Absolute Neutrophil Count 2.97 k/cumm (1.2-6.7); Basophils % 0.9; Eosinophils % 2.5; HCT 39.7 % (36.0-46.0); HGB 13.3 g/dL (12.0-15.5); Immature Grans % 0.2 %; Lymphocytes % 58.4; Mean Corp. HGB Concentration 33.5 g/dL (32.0-36.0); Mean Corpuscular Hemoglobin 28.8 pg (27.0-33.0); Mean Corpuscular Volume 85.9 fL (80-95); Mean Platelet Volume 10.9 fL (8.0-11.0); Monocytes % 4.8; Neutrophils % 33.2; Platelet Count 298 x1000/uL (130-400); RBC 4.62 m/cumm (4.00-5.20); RBC Distribution Width 13.9 % (11.7-14.6); White Blood Cell Count 8.95 k/cumm (4.4-10.8)
[2019-05-26] MEDS: Normal Saline 1,000 ML 1000 ML IV (09:34)
[2019-05-26] MEDS: Normal Saline Flush 10 ML SYR IVP (09:37)
[2019-05-26] MEDS: Ondansetron 4 MG/2 ML VIAL IVP (09:38)
[2019-05-26 09:39] LABS: Diff Comment Diff Reviewed; RBC Morphology Normal
[2019-05-26] MEDS: SUMAtriptan 6 MG/0.5 ML VIAL SC (09:39)
[2019-05-26 09:45] LABS: ALT 24 U/L (14-59); AST 19 U/L (15-37); Albumin 3.9 g/dL (3.4-5.0); Alkaline Phosphatase 97 U/L (46-116); Anion Gap 10.8 mmol/L (3-11); BUN 15 mg/dL (7-18); Bilirubin, Total 0.5 mg/dL (0.2-1.0); CO2 25.2 mmol/L (21.0-32.0); CREATININE 1.02 mg/dL (0.55-1.02); Calcium 9.6 mg/dL (8.5-10.1); Chloride 104 mmol/L (98-107); Estimated GFR 56.91 (mL/min/1.73m2); Glucose 126 mg/dL (74-106); Potassium 3.7 mmol/L (3.5-5.1); Sodium 140 mmol/L (136-145); Total Protein 8.2 g/dL (6.4-8.2)
[2019-05-26 09:46] LABS: Bilirubin Negative (Negative); Blood Trace-intact (Negative); Clarity Clear (Clear); Glucose Negative (Negative); Ketones Negative (Negative); Leukocyte Esterase Negative (Negative); Nitrite Negative (Negative); Specific Gravity 1.015 (1.005-1.025); Urobilinogen 0.2 EU/dL (Up TO 0.2)
[2019-05-26 09:50] LABS: Troponin I < 0.05 ng/Ml (<0.06)
[2019-05-26 09:59] LABS: Bacteria Few HPF (Negative); Crystals Negative HPF (Negative); Epithelial Cells Moderate HPF (Negative); Mucus Trace (Negative); RBC 0-2 HPF (0-2); WBC 0-2 HPF (0-5)
[2019-05-26 10:00] LABS: Casts Negative LPF (Negative)
[2019-05-26 10:01] LABS: C & S Indicated? No/Sq. Contamination
[2019-05-26] MEDS: Ketorolac 30 MG/ML VIAL IVP (10:16)
--- NOTE | 2019-05-27 10:36 | PDOC.ERCMPRO ---
- If Service Date Differs Date of service: 05/27/19 Time of Service: 10:36 Care Management Progress Note CM contacted patient as a follow up from the ED she states she is feeling a little better today. She states she has not been sleeping for the past month she states she has had a poor appetite. She states her spouse is not working at this time and this has been a source of stress as well. She states they are behind on some of their bills she is hopeful when her spouse starts working again this will improve. She is willing to have a visit with behavioral health. and would appreciate it. KELVIN has spoken with chronic pediatric care coordinator at primary care practice and she will follow up with primary care. P:Helena will have her follow up with her primary care and stress test on . She will meet with behavioral health over telehealth. CM provided contact information for Care management for questions and follow up if needed.
== END 2019-05-26 10:36 | disposition home or self-care (01) ==
PROVIDERS: Emergency Provider Registered Nurse Emergency; PCP Nurse Practitioner Family
DX: R51 Headache (principal); R53.1 Weakness; I10 Essential (primary) hypertension
CPT/HCPCS: 80053; 96361; 96372; 96374; 96375; 99284; 81003; 81015; 83735; 84484; 85025; J1885; J2405

== ENCOUNTER 2019-05-29 19:01 | Emergency (ER) | payer OTHER, SELFPAY ==
[2019-05-29 19:08] VITALS: BP 173/87; PULSE 103; RESP 16; TEMP 36.3; O2SAT 100
--- NOTE | 2019-05-29 19:11 | W.ED.GENAD ---
Discharge Plan Disposition Patient Disposition: HOME Condition: Good Discharge Details Chief Complaint: Chest Pain Clinical Impression: Chest pain, Anxiety Primary Care Provider: Angela Gleason ED Provider: Donal Tamayo Home Meds and New Rx's Prescriptions: Continued cyclobenzaprine 10 mg tablet 10 mg PO HS PRN (Reason: muscle spasm) Qty: 30 RF: 3 Hold Instructions: Home Medication placed on hold at Doctor's office omega-3 fatty acids 1 each PO DAILY RF: 0 metoprolol succinate 25 mg tablet extended release 24 hr 25 mg PO DAILY Qty: 90 RF: 3 potassium chloride 20 mEq tablet extended release 20 meq PO DAILY Qty: 90 RF: 3 sumatriptan succinate 50 mg tablet 50 mg PO ONCE MDD 200 mg PRN (Reason: migraine) Qty: 30 RF: 0 ketotifen fumarate [Allergy Eye (ketotifen)] 0.025 % (0.035 %) drops 1 drp OP BID PRN (Reason: allergy symptoms) Qty: 5 RF: 0 magnesium gluconate 27.5 mg magne- sium (500 mg) tablet 27.5 mg PO BID RF: 0 hydrocortisone 2.5 % cream 1 applic TP BID PRNQty: 30 RF: 1 cholecalciferol (vitamin D3) [Vitamin D3] 2,000 UNIT tablet 2,000 unit PO DAILY RF: 0 spironolactone 25 mg Tablet 25 mg PO DAILY Qty: 30 RF: 0 lorazepam 1 mg tablet 1 mg PO TID PRN (Reason: anxiety) Qty: 10 RF: 0 Discharge Instructions Additional Instructions: Your work-up tonight is unremarkable. Laboratory studies remain fine. EKGs are normal. CT scan shows nothing acute. You do have a pulmonary nodule that will need repeat CT scan in 1 year but has likely benign nodule. You would likely benefit from being on a baseline antianxiety med like Zoloft. Please discuss this with your primary care provider. You should use Ativan (lorazepam) like we discussed when things start to spiral out of control. Please be sure to reach out to primary care tomorrow. Return to ED for new or worsening symptoms that you are not able to control. Referrals: Angela Gleason NP [Primary Care Provider] - Medical Decision Making <Eusebio Peralta MD - Last Filed: 05/29/19 19:27> 53 yo female with hx of anxiety, depression, hld, htn, chronic migraine/tension headache, comes in with complaints of anterior chest pain radiating to the back and abdomen starting about 2 hours ago. Denies any vomit, has been stressed and anxious recently. Denies any drug use smoking or alcohol use. NO prior hx of cad. She took 162mg asa prior to arrival and feels somewhat better. She does appear anxious on exam. She has clear lungs, no murmurs, mild epigastric tenderness no rebound or guarding. Suspect this could be from anxiety but given the pain with radiation to the back and abdomen feel she requires work up to evaluate for potential etiologies such as acs vs dissection, will obtain labs and imaging. NO hypoxia, calf tenderness or pleuritic pain so doubt PE. pt signed out to oncoming provider pending labs and imaging Differential Diagnosis Differential Diagnosis: anxiety, acs, dissection Medical Records Medical records reviewed: Yes I reviewed the patient's medical records. ECG Data Attestation: I personally reviewed and interpreted this ECG (s) as follows: Prior ECG tracings: not available for review Interpretation: sinus rhythm, rate of 91, pr 162, qtc 458, no acute ischemic findings <Donal Tamayo MD - Last Filed: 05/29/19 23:13> Patient signed out to me pending laboratory studies, CT scan, repeat EKG and troponin. Upon taking patient over I reviewed her medical records. She has had 2 admissions to this hospital as well as outpatient primary care visits and at least 3 ED visits for this month alone. Prior to that she was not a frequent user of the healthcare system but did go to primary care. Her visits have been related to pain and probably anxiety/hyperventilation. Patient's work-up again tonight is negative. There is no PE, dissection or acute abnormality in the chest abdomen pelvis CT. She does have a pulmonary nodule which will need follow-up in 12 months as she is exposed to secondhand smoke on a regular basis. I had a long discussion with the patient. She admits since the pandemic started and she has been isolated at home her ability to cope has decreased dramatically. Prior to this she and her got along fairly well although she was able to work and socialize. She denies any abuse or domestic violence. She denies any SI or HI. She does feel safe at home but it sounds like the relationship that she has with her is not necessarily the best. She reports that she has had previous problems similar to this in the past with her who does not work in the winter. Patient did speak to mental health earlier today. The plan is for at least a weekly visit. Patient has Ativan prescribed to her but has not used it. We discussed that she needs to be able to recognize when things are starting to spiral out of control. She finds peace in praying so I have suggested when she feels things are starting to escalate to go to a quiet place for prayer and scripture reading and maybe taking an Ativan to see if she can divert a full-blown panic attack. I also have suggested the possibility of starting a baseline medication like Zoloft to try to help with anxiety. She will need to discuss this with primary care. Patient is discharged home. Contact primary care in the morning. Return to ED for new or worsening symptoms that she is unable to control. Medical Records Medical records reviewed: Yes I reviewed the patient's medical records. Lab Data Lab results reviewed: Yes I reviewed the patient's lab results. ECG Data Attestation: I personally reviewed and interpreted this ECG (s) as follows: Prior ECG tracings: available for review Interpretation: Normal sinus rhythm at 80. Normal axis and intervals. Nonspecific ST changes which are unchanged from previous EKGs. HPI <Eusebio Peralta MD - Last Filed: 05/29/19 19:27> General Mode of arrival: ambulatory. Date/Time Provider Initiated Documentation: 05/29/19 19:01. Limitations to Documentation: no limitations. Information obtained by: patient. History of Present Illness 53 year old F presents to the emergency department with the chief complaint of chest pain, described as moderate, Patient reports radiation to back and abdomen. Patient started experiencing this hour(s) (2) No relieving factors improve symptom(s), No exacerbating factors reported . Patient did receive the following treatments prior to arrival, none Related Data Home Medications Medication Instructions Recorded Confirmed cholecalciferol (vitamin D3) 2,000 unit PO DAILY 05/18/17 05/29/19 [Vitamin D3] cyclobenzaprine 10 mg tablet 10 mg PO HS PRN #30 tab 11/13/18 05/29/19 magnesium gluconate 27.5 mg 27.5 mg PO BID 04/08/19 05/29/19 magnesium (500 mg) tablet metoprolol succinate 25 mg 25 mg PO DAILY #90 tab-cap 05/12/19 05/29/19 tablet,extended release 24 hr omega-3 fatty acids 1 each PO DAILY 05/12/19 05/29/19 potassium chloride 20 mEq 20 meq PO DAILY #90 tab-cap 05/12/19 05/29/19 tablet,extended release hydrocortisone 1 applic TP BID PRN #30 gm 05/15/19 05/29/19 ketotifen fumarate 0.025 % (0.035 1 drp OP BID PRN #5 ml 05/19/19 05/29/19 %) eye drops sumatriptan succinate 50 mg tablet 50 mg PO ONCE PRN #30 tab-cap MDD 05/19/19 05/29/19 200 mg spironolactone 25 mg PO DAILY #30 tab 05/21/19 05/29/19 lorazepam 1 mg PO TID PRN #10 tab 05/22/19 05/29/19 Previous Rx's Medication Instructions Recorded cyclobenzaprine 10 mg tablet 10 mg PO HS PRN #30 tab 11/13/18 metoprolol succinate 25 mg 25 mg PO DAILY #90 tab-cap 05/12/19 tablet,extended release 24 hr potassium chloride 20 mEq 20 meq PO DAILY #90 tab-cap 05/12/19 tablet,extended release hydrocortisone 1 applic TP BID PRN #30 gm 05/15/19 ketotifen fumarate 0.025 % (0.035 1 drp OP BID PRN #5 ml 05/19/19 %) eye drops sumatriptan succinate 50 mg tablet 50 mg PO ONCE PRN #30 tab-cap MDD 05/19/19 200 mg spironolactone 25 mg PO DAILY #30 tab 05/21/19 lorazepam 1 mg PO TID PRN #10 tab 05/22/19 Allergies Allergy/AdvReac Type Severity Reaction Status Date / Time acetaminophen [From Tylenol] AdvReac Intermediate Headache/[place] Verified 05/29/19 19:28 Tight extra strength lisinopril AdvReac Headache Verified 05/29/19 19:28 General AISHA: 2 Review of Systems <Eusebio Peralta MD - Last Filed: 05/29/19 19:27> All systems reviewed & are unremarkable except as noted in HPI and below Constitutional Constitutional: Denies chills and Denies fever(s) Cardiovascular Cardiovascular: Denies dyspnea Respiratory Respiratory: Denies cough and Denies dyspnea Gastrointestinal Gastrointestinal: Denies nausea and Denies vomiting Musculoskeletal Musculoskeletal: Denies joint swelling PFSH <Eusebio Peralta MD - Last Filed: 05/29/19 19:27> Medical History (Updated 05/29/19 @ 19:27 by Eusebio Peralta MD) Anxiety and depression (Chronic) Breast discharge (Chronic) 04/11/2018 [facility] consult: normal, monitor Chronic back pain (Acute) Chronic tension type headache (Chronic) Diffuse cystic mastopathy of both breasts (Chronic) Dysgeusia (Resolved) Dysmenorrhea (Chronic) H/o iron deficiency with menses Essential hypertension (Chronic) Hyperlipidemia (Chronic 10/10/17) 09/2017 labs: 10-year ASCVD risk = ~5.9% --> no statin indicated at this time Hypokalemia (Chronic) IFG (impaired fasting glucose) (Chronic 10/10/17) Migraines (Chronic) Polyp of cecum (Inactive ~03/11/18) Uterine fibroid (Chronic) Pt reports h/o, also seen on 04/11/2018 CT Social History Smoking/Tobacco Use Status: Never Second Hand Exposure: Yes Alcohol Intake: former Drug use: Never Substance use type: does not use Details: ate marijuana brownies 08/15/18 bad reaction Adopted: No Caregiver/Support person: No Foster care: No Household members: spouse Number of Children: 3 Communication Needs: None current occupation: House cleaning Pets and animals: No Sexually active: Yes Do you think of yourself as: straight/heterosexual Current gender identity: female What type of physical activity do you participate in: walking Duration: 15-30 minutes/day Do you feel safe at home: Yes Do you feel safe in your relationship?: Yes Exam <Eusebio Peralta MD - Last Filed: 05/29/19 19:27> Const General: no acute distress Orientation: alert [facility] Head: normal to inspection Ears: external ears normal General nose exam: external nose normal Mouth: moist mucous membranes Eyes General: appearance normal, both eyes and all related structures Neck Neck: normal visual inspection Resp Effort & Inspection: normal respiratory effort and able to speak in complete sentences Cardio Rate: regular rate GI Palpation: soft Skin General skin exam: no rashes or lesions noted Neuro General: patient alert and patient oriented x3 Extrem General: normal to inspection Psych Mental Status: mental status grossly normal Sign Out <Eusebio Peralta MD - Last Filed: 05/29/19 19:27> Sign Out Data: Sign Out Comment: follow up on labs and imaging results Last updated by Eusebio Peralta MD at 05/29/19 19:33
[2019-05-29 19:12] VITALS: RESP 16
[2019-05-29] MEDS: LORazepam 2 MG/ML VIAL 1 MG IVP (19:26)
[2019-05-29 19:41] LABS: Lactate 2.7 mmol/L (0.6-1.4)
[2019-05-29] MEDS: Normal Saline 1,000 ML 1000 ML IV (19:45)
[2019-05-29 19:54] LABS: PTT Activated 28.3 sec (21.0-31.4); Prothrombin Time 10.4 sec (9.3-11.0)
[2019-05-29] MEDS: Normal Saline Flush 10 ML SYR IVP (19:56)
[2019-05-29] MEDS: Normal Saline - Diluent 50 ML VIAL IV (19:57)
[2019-05-29] MEDS: Omnipaque 350 MG/ML 100 ML BTL IJ (19:57)
[2019-05-29 19:58] LABS: Bilirubin, Direct 0.09 mg/dL (0.00-0.20); Bilirubin, Total 0.5 mg/dL (0.2-1.0); Lipase 105 U/L (73-393); Magnesium 2.1 mg/dL (1.8-2.4)
[2019-05-29] MEDS: Omnipaque 350 MG/ML 50 ML BTL IJ (19:58)
[2019-05-29 19:59] LABS: Troponin I < 0.05 ng/Ml (<0.06)
--- NOTE | 2019-05-29 19:59 | DI.CT_ITS ---
EXAM: CT THORAX ABD/PEL CTA CLINICAL HISTORY: chest pn radiating to back abdomen, ?dissection. TECHNIQUE: Imaging Protocol: Axial CT angiography was performed with multi-slice acquisition and m ulti-planar and/or 3D reconstructions. CONTRAST MATERIAL: Intravenous: Omnipaque 350 Contrast volume:125 mL Oral: No COMPARISON: CT ABDOMEN PELVIS W from 05/13/2019 FINDINGS: CTA chest: Pulmonary Arteries: No evidence of filling defect to suggest pulmonary emboli. Tracheobronchial tree: Patent where visualized. Mediastinum and Darcy: No dominant adenopathy or fluid collection. Pulmonary parenchyma: No focal consolidation is present. No architectural distortion. There is a non calcified 4 mm pulmonary nodule in the right upper lobe (series 5, image 240). There is a 3 mm nodul e associated with the minor fissure consistent with a lymph node. Pleura: No effusion or pneumothorax. Heart: The heart is not dilated. No coronary artery calcifications are seen. No pericardial effusion. Aorta: Thoracic aorta non-dilated. No dissection. Bones: Normal. CTA abdomen and pelvis: Vascular Structures: Celiac [place]/SMA: No evidence of occlusion or stenosis. Renal Arteries: No evidence of occlusion or stenosis. There is a single renal artery perfusing each kidney. Aorta: No aneurysm. No dissection, significant stenosis or occlusion. Pelvis: Iliac Arteries: No evidence of occlusion or stenosis. Common Femoral Arteries: No evidence of occlusion or stenosis. Soft Tissues:Unremarkable. Liver: Normal density. No measurable mass. Gallbladder and biliary tract: No radiodense calculus or dilation. Pancreas: Normal density, no abnormal calcifications or inflammatory process. Spleen: Normal. Kidneys: Normal size, contour and axis. No radiodense stones or obstructive uropathy. No masses seen. Stable 1 cm right renal cyst. Adrenal glands: No masses seen. Bladder: Symmetric distention, no gross wall thickening. Bowel: No obstruction or bowel wall thickening. No evidence of acute appendicitis. Reproductive organs: Unremarkable. Peritoneal cavity: No ascites, collection or mesenteric inflammatory response. Bones: Within normal limits. Lymph nodes: Within normal limits. IMPRESSION: 1. No evidence of pulmonary embolus, thoracic aortic dissection or aneurysm. 2. 4 mm noncalcified pulmonary nodule in the right upper lobe. If there are risk factors for primary lung malignancy, consider noncontrast follow-up CT scan of the chest in 12 months. Otherwise, no fo llow-up imaging is indicated per Fleischner society guidelines. 3. No acute abnormality is seen in the abdomen and pelvis. No acute arterial abnormality. DATA REPOSITORY: All CT scans at this facility are submitted to the National Radiology Data Registry (NRDR) Dose Index Registry (DIR) with the [employer] (ACR). RADIATION OPTIMIZATION: All CT scans at this facility use at least one of these dose optimization te chniques: automated exposure control; mA and/or kV adjustment per patient size (includes targeted exa ms where dose is matched to clinical indication); or iterative reconstruction.
[2019-05-29 20:09] LABS: Abs Immature Grans 0.01 k/cumm (0.0-0.09); Absolute Basophil Count 0.07 k/cumm (0.0-0.2); Absolute Eosinophil Count 0.17 k/cumm (0.0-0.7); Absolute Monocyte Count 0.46 k/cumm (0.11-0.7); Absolute Neutrophil Count 3.57 k/cumm (1.2-6.7); Basophils % 0.8; Eosinophils % 1.9; HCT 39.8 % (36.0-46.0); HGB 13.3 g/dL (12.0-15.5); Immature Grans % 0.1 %; Lymphocytes % 52.3; Mean Corp. HGB Concentration 33.4 g/dL (32.0-36.0); Mean Corpuscular Hemoglobin 28.5 pg (27.0-33.0); Mean Corpuscular Volume 85.2 fL (80-95); Monocytes % 5.1; Neutrophils % 39.8; Platelet Count 274 x1000/uL (130-400); RBC 4.67 m/cumm (4.00-5.20); RBC Distribution Width 13.5 % (11.7-14.6); White Blood Cell Count 8.98 k/cumm (4.4-10.8)
--- NOTE | 2019-05-29 20:21 | DI.VRAD_ITS ---
PROCEDURE INFORMATION: Exam: CT Angiography Chest With Contrast Exam date and time: 05/29/2019 7:11 PM Age: 53 years old Clinical indication: Chest pain; Radiating; Abdominal pain; Generalized TECHNIQUE: Imaging protocol: Computed tomographic angiography of the chest with intravenous contrast. 3D rendering: MIP and/or 3D reconstructed images were created by the technologist. Radiation optimization: All CT scans at this facility use at least one of these dose optimization techniques: automated exposure control; mA and/or kV adjustment per patient size (includes targeted exams where dose is matched to clinical indication); or iterative reconstruction. Contrast material: [id number]; Contrast volume: 125 ml; Contrast route: IV LAC 18G; COMPARISON: SR XR PORTABLE CHEST AP 05/20/2019 3:29 PM FINDINGS: Pulmonary arteries: No pulmonary embolism to the level of the segmental arteries. Aorta: Normal caliber and appearance of the thoracic aorta without acute injury, flow-limiting stenosis, or aneurysm. Lungs: Clear lungs. 4 mm pulmonary nodule in the right upper lobe (series 5, image 241). Slightly more inferior 3 mm nodule in the right upper lobe with appearance consistent with a benign intrapulmonary lymph node. Pleural space: Unremarkable. No pneumothorax. No pleural effusion. Heart: Unremarkable. No cardiomegaly. No pericardial effusion. Lymph nodes: Unremarkable. No enlarged lymph nodes. Bones/joints: Unremarkable. No acute fracture. Soft tissues: Unremarkable. IMPRESSION: 1. No acute abnormality in the chest. Normal caliber and appearance of the thoracic aorta. 2. 4 mm pulmonary nodule in the right upper lobe. Consider follow-up noncontrast chest CT in 12 months if there are risk factors for primary lung malignancy. Otherwise, no follow-up imaging is indicated per Fleischner society guidelines. PROCEDURE INFORMATION: Exam: CT Angiography Abdomen and Pelvis With Contrast Exam date and time: 05/29/2019 7:11 PM Age: 53 years old Clinical indication: Chest pain; Radiating; Abdominal pain; Generalized TECHNIQUE: Imaging protocol: Computed tomographic angiography of the abdomen and pelvis with intravenous contrast material. 3D rendering: MIP and/or 3D reconstructed images were created by the technologist. Radiation optimization: All CT scans at this facility use at least one of these dose optimization techniques: automated exposure control; mA and/or kV adjustment per patient size (includes targeted exams where dose is matched to clinical indication); or iterative reconstruction. Contrast material: [id number]; Contrast volume: 125 ml; Contrast route: IV LAC 18G; COMPARISON: SR XR PORTABLE CHEST AP 05/20/2019 3:29 PM FINDINGS: Aorta: Normal caliber and appearance of the abdominal aorta without acute injury, flow-limiting stenosis, or aneurysm. Celiac trunk and mesenteric arteries: No occlusion or significant stenosis. Renal arteries: No occlusion or significant stenosis. Right iliac arteries: No occlusion or significant stenosis. Left iliac arteries: No occlusion or significant stenosis. Liver: The liver is normal. Gallbladder and bile ducts: The gallbladder is normal. Pancreas: The pancreas is normal. Spleen: The spleen is normal. Adrenals: The adrenal glands are normal. Kidneys and ureters: Simple appearing exophytic cyst along the right renal inferior pole.The kidneys are otherwise unremarkable. Stomach and bowel: Unremarkable. No obstruction. No mucosal thickening. Appendix: A normal appendix is identified. Intraperitoneal space: Unremarkable. No free air. No significant fluid collection. Lymph nodes: Unremarkable. No enlarged lymph nodes. Bladder: The bladder is normal. Reproductive: Unremarkable as visualized. Bones/joints: No acute fracture. No dislocation. Soft tissues: Unremarkable. IMPRESSION: No acute abnormality in abdomen pelvis. Normal caliber and appearance of the abdominal aorta. Dictated and Authenticated by: Alexey Ashraf MD. Ordering:ALDA Kaplan MD
[2019-05-29 20:32] LABS: Anion Gap 12.8 mmol/L (3-11); BUN 13 mg/dL (7-18); CO2 26.2 mmol/L (21.0-32.0); CREATININE 0.97 mg/dL (0.55-1.02); Calcium 9.7 mg/dL (8.5-10.1); Chloride 103 mmol/L (98-107); Glucose 147 mg/dL (74-106); Potassium 3.4 mmol/L (3.5-5.1); Sodium 142 mmol/L (136-145)
[2019-05-29 21:30] VITALS: BP 134/65; PULSE 81; RESP 20; O2SAT 99
[2019-05-29] MEDS: Normal Saline 1,000 ML 200 ML IV (21:38)
[2019-05-29 22:41] LABS: Troponin I < 0.05 ng/Ml (<0.06)
[2019-05-29 23:00] VITALS: BP 134/72; PULSE 86; RESP 16; TEMP 36.6; O2SAT 97
== END 2019-05-29 23:05 | disposition home or self-care (01) ==
PROVIDERS: Emergency Medicine; Emergency Provider Emergency Medicine; PCP Nurse Practitioner Family
DX: R07.89 Other chest pain (principal); F41.9 Anxiety disorder, unspecified; I10 Essential (primary) hypertension
CPT/HCPCS: 74177; 80048; 83690; 93005; 96361; 96374; 99285; 82247; 82248; 83605; 83735; 84484; 85025; 85610; 85730; 93010; 99284; J2060; J3490; Q9967

== ENCOUNTER 2019-06-02 00:10 | Outpatient (CLI) | payer OTHER, SELFPAY ==
--- NOTE | 2019-06-02 06:31 | DI.NM_ITS ---
APPROVED REPORT Exam: Pharmacologic Patient Location: Out-Patient Room/Bed: Stress Nurse: Juliana Walker RN BMI: 34.45 Baseline Rhythm: Sinus Bradycardia Indications: Patient presented to the ER on 05/29/2019 with left sided chest pain anterior chest pain radiating to her back and abdomen. She also reports intermittent left arm and leg ???heaviness???. Sh e states she feels like her ???heart is tired and weak???. Medical History Medical History: Anxiety, Depression, Chronic Migraines. Cardiac Medications: Metoprolol Succinate, Spironolactone. Allergies: Acetaminophen, Lisinopril, CT Dye. Cardiac Risk Factors: FHX of CAD, HTN, Hyperlipidemia Previous Cardiac Procedures: None Pretest Chest Pain Characteristics: No chest pain Exercise History: Physically active Physical Disabilities: None Lung Sounds: Clear to auscultation Heart Sounds: Regular Stress Test Details Test: Pharmacologic stress testing performed using 0.4 mg of regadenoson per 5 mL given IV over 10 s econds. Nuclear Acquisition: Rest Tc-99m/Stress Tc-99m 1 day Rest Isotope: Tc-99m Sestamibi. Dose: 12.1 Date: 06/02/2019 Injection Time: 0900 Stress Isotope: Tc-99m Sestamibi. Dose: 37.5 Date: 06/02/2019 Injection Time: 1032 HR Resting HR Supine: 53 bpm Max Heart Rate (APMHR): 168 bpm Target HR (85% APMHR): 142 bpm Max HR Achieved: 93 bpm % of APMHR: 55 BP Resting BP Supine: 120/70 mmHg Max BP: 140/80 mmHg ECG Resting ECG: Sinus Bradycardia Stress ECG: No significant ST segment changes noted. ST Change: Nondiagnostic resting ST abnormalities Arrhythmia: None Recovery ECG: Sinus Rhythm Recovery ST Change: Nondiagnostic resting ST abnormalities Clinical Stress Symptoms: None per patient report. Stress ECG Conclusion 1. Is a pharmacological stress test. 2. EKG portion of this exam was nondiagnostic. Stress Test Summary STAGE HR BP Symptoms NOTES Supine 53 120/70 1 min post Lexiscan injection 86 138/76 3 min post Lexiscan injection 84 140/80 6 min post Lexiscan injection 75 138/80 9 min post Lexiscan injection 69 136/74 MPI Conclusion Ejection fraction with stress was 46%. There were no wall motion abnormalities. There is no evidence of inducible ischemia on the imaging portion of this exam. This represents a normal SPECT stress test.
[2019-06-02] MEDS: Regadenoson 0.4 MG/5 ML SYR IVP (10:21)
== END 2019-06-02 00:30 ==
PROVIDERS: PCP Nurse Practitioner Family; Visit Provider Nurse Practitioner Family
DX: R07.89 Other chest pain (principal); I10 Essential (primary) hypertension; E78.5 Hyperlipidemia, unspecified; F41.8 Other specified anxiety disorders; G43.009 Migraine without aura, not intractable, without status migrainosus; Z82.49 Family history of ischemic heart disease and other diseases of the circulatory system
CPT/HCPCS: 78452; 93017; J2785

== ENCOUNTER 2019-06-17 01:36 | Emergency (ER) | payer OTHER, SELFPAY ==
[2019-06-17 01:50] VITALS: BP 166/91; PULSE 91; RESP 16; TEMP 36; O2SAT 97
--- NOTE | 2019-06-17 02:12 | ED.GENADUL_ITS ---
Discharge Plan Disposition Patient Disposition: HOME Condition: Stable Discharge Details Chief Complaint: Headache Clinical Impression: Headache, Stress at home, Aneurysm of internal carotid artery Primary Care Provider: Angela Gleason ED Provider: Cuate Rodriguez Home Meds and New Rx's Prescriptions: Continued cyclobenzaprine 10 mg tablet 10 mg PO HS PRN (Reason: muscle spasm) Qty: 30 RF: 3 Hold Instructions: Home Medication placed on hold at Doctor's office metoprolol succinate 25 mg tablet extended release 24 hr 25 mg PO DAILY Qty: 90 RF: 3 potassium chloride 20 mEq tablet extended release 20 meq PO DAILY Qty: 90 RF: 3 sumatriptan succinate 50 mg tablet 50 mg PO ONCE MDD 200 mg PRN (Reason: migraine) Qty: 30 RF: 0 sertraline 50 mg tablet 50 mg PO DAILY Qty: 45 RF: 0 spironolactone 50 mg tablet 50 mg PO DAILY Qty: 60 RF: 0 magnesium gluconate 27.5 mg magne- sium (500 mg) tablet 27.5 mg PO BID RF: 0 cholecalciferol (vitamin D3) [Vitamin D3] 2,000 UNIT tablet 2,000 unit PO DAILY RF: 0 lorazepam 1 mg tablet 1 mg PO TID PRN (Reason: anxiety) Qty: 10 RF: 0 No Action hydrocortisone 1 % cream 1 applic TP TID RF: 0 aspirin 81 mg tablet,chewable 81 mg PO DAILY RF: 0 topiramate [Topamax] 25 mg tablet 25 mg PO QHS Qty: 30 RF: 2 Discharge Instructions Instructions: General Headache (ED) Additional Instructions: Please take effort to reduce stress at home. Please follow-up with neurology. Please contact your primary care physician to arrange follow-up. Return to the ER for any worsening or new concerning symptoms. Referrals: Angela Gleason NP [Primary Care Provider] - Luyc Cheema MD [ [facility] STAFF PHYSICIAN] - Discharge Data Discharge Date/Time-TO BE ENTERED AT DEPARTURE: 06/17/19 07:57 Medical Decision Making 220: 53-year-old female with history of anxiety, migraine headaches, hyperten paulina, here with headache over the past 3 days and sensation of something popping in her head. Patient is neurologically intact. She is quite anxious. She is hypertensive. We will give Ativan 1 mg IV for anxiety. Will give toradol 15mg IV. Patient has moist mucous membranes and poor skin turgor. Suspect hypovolemia. I will give lactated Ringer's 500 mL bolus. Plan to proceed to CTA of the head and neck to assess for any vascular abnormalities resulting in current symptoms. I obtained and reviewed past medical record recent myocardial perfusion scan and 06/02/2019: MPI Conclusion Ejection fraction with stress was 46%. There were no wall motion abnormalities. There is no evidence of inducible ischemia on the imaging portion of this exam. This represents a normal SPECT stress test. Head CT 05/20/19: IMPRESSION: Normal cranial CT. CTA of the chest, abdomen and pelvis 05/29/2019: IMPRESSION: 1. No evidence of pulmonary embolus, thoracic aortic dissection or aneurysm. 2. 4 mm noncalcified pulmonary nodule in the right upper lobe. If there are risk factors for primary lung malignancy, consider noncontrast follow-up CT scan of the chest in 12 months. Otherwise, no follow-up imaging is indicated per Fleischner society guidelines. 3. No acute abnormality is seen in the abdomen and pelvis. No acute arterial abnormality. 4:00 --CTA of the neck interpreted by radiology: IMPRESSION: No stenosis or occlusion. 4 mm nodule in the right upper lobe, grossly stable. Follow-up recommendations as previously noted CTA of the head interpreted by radiology: IMPRESSION: No large vessel stenosis or occlusion. Possible medial bilateral ICA aneurysms in the cavernous segments measuring up to 3-4 mm as described --CT of the head interpreted by radiology: No acute intracranial abnormality. No hemorrhage. Patient reassessed and resting comfortably asleep. Repeat vitals reveal improved BP. Patient looking up and notes continued discomfort in her left parietal area, much improved from prior and now rated 2/[address] findings with the patient and reviewed options. Patient provided informed consent for lumbar puncture. 6:10 -- Lumbar puncture was performed without complication. Opening pressure 18. Labs pending. 7:35 --labs reviewed: No xanthochromia, RBCs 5. Findings not consistent with subarachnoid hemorrhage. Patient reassessed and stable. Plan will be for discharge and to follow-up with neurology regarding headaches and CTA findings. Disposition decision was made weighing the risks and benefits of hospitalization versus outpatient treatment, the risk for further decompensation, and the patient's wishes. The patient was stable and requested discharge. Prior to discharge, my usual and customary return precautions were reviewed with the patient - this included follow-up instructions and reason to return to the emergency department if condition worsens, does not improve as expected, or other new concerns arise. HPI General Mode of arrival: ambulatory . Date/Time Provider Initiated Documentation: 06/17/19 01:42 . Limitations to Documentation: no limitations . Information obtained by: patient . HPI Narrative: 53-year-old female with history of migraines, htn, anxiety, presents this morning with chief complaint of headache. Patient notes headache for the past 3 days. Pain is localized to left parietal area. Pain is currently described as a tightness. She states headache came on after her was outside smoking and returned in the house. She notes a smell of smoke has triggered headaches in the past. Patient states that tonight she felt a sensation of something bursting and then a sensation of water running down through her body. Headache not thunderclap and not the worst headache of her life. Patient denies associated loss of consciousness, vomiting, and neck pain or stiffness. Patient is somewhat of a poor historian but believes tonight that she did take her sumatriptan. She also states that she took additional antihypertensive medication tonight. Patient states that she is under a lot of stress, specifically she worries about her daughter who is a nurse being exposed to COVID-19 and is also concerned with difficulty paying her bills. She does note stress worsens her headache. Related Data Home Medications Medication Instructions Recorded Confirmed cholecalciferol (vitamin D3) 2,000 unit PO DAILY 05/18/17 06/18/19 [Vitamin D3] cyclobenzaprine 10 mg tablet 10 mg PO HS PRN #30 tab 11/13/18 06/18/19 magnesium gluconate 27.5 mg 27.5 mg PO BID 04/08/19 06/18/19 magnesium (500 mg) tablet metoprolol succinate 25 mg 25 mg PO DAILY #90 tab-cap 05/12/19 06/18/19 tablet,extended release 24 hr potassium chloride 20 mEq 20 meq PO DAILY #90 tab-cap 05/12/19 06/18/19 tablet,extended release sumatriptan succinate 50 mg tablet 50 mg PO ONCE PRN #30 tab-cap MDD 05/19/19 06/18/19 200 mg lorazepam 1 mg PO TID PRN #10 tab 05/22/19 06/18/19 sertraline 50 mg tablet 50 mg PO DAILY #45 tab-cap 05/30/19 06/18/19 spironolactone 50 mg tablet 50 mg PO DAILY #60 tab-cap 06/09/19 06/18/19 aspirin 81 mg chewable tablet 81 mg PO DAILY 06/18/19 06/18/19 hydrocortisone 1 % topical cream 1 applic TP TID 06/18/19 06/18/19 topiramate 25 mg tablet 25 mg PO QHS #30 tab 06/18/19 06/18/19 Previous Rx's Medication Instructions Recorded cyclobenzaprine 10 mg tablet 10 mg PO HS PRN #30 tab 11/13/18 metoprolol succinate 25 mg 25 mg PO DAILY #90 tab-cap 05/12/19 tablet,extended release 24 hr potassium chloride 20 mEq 20 meq PO DAILY #90 tab-cap 05/12/19 tablet,extended release sumatriptan succinate 50 mg tablet 50 mg PO ONCE PRN #30 tab-cap MDD 05/19/19 200 mg lorazepam 1 mg PO TID PRN #10 tab 05/22/19 sertraline 50 mg tablet 50 mg PO DAILY #45 tab-cap 05/30/19 spironolactone 50 mg tablet 50 mg PO DAILY #60 tab-cap 06/09/19 topiramate 25 mg tablet 25 mg PO QHS #30 tab 06/18/19 Allergies Allergy/AdvReac Type Severity Reaction Status Date / Time acetaminophen [From Tylenol] AdvReac Intermediate Headache/[place] Verified 06/18/19 13:58 Tight extra strength lisinopril AdvReac Headache Verified 06/18/19 13:58 General Stated Complaint: Headache AISHA: 3 Review of Systems All systems reviewed & are unremarkable except as noted in HPI and below Constitutional Constitutional: Denies fever(s) and Denies weakness Cardiovascular Cardiovascular: Denies chest pain and Denies dyspnea Respiratory Respiratory: Denies dyspnea Musculoskeletal Musculoskeletal: Denies numbness Neurologic Neurologic: Reports as per HPI, Denies numbness and Denies weakness [facility] Medical History (Updated 06/19/19 @ 16:17 by Deepali Barragan) Anxiety and depression (Chronic) Breast discharge (Chronic) 04/11/2018 [facility] [place] [facility] [place]: normal, monitor Cerebral aneurysm (Acute) Chronic back pain (Inactive) Chronic tension type headache (Chronic) Diffuse cystic mastopathy of both breasts (Chronic) Dysgeusia (Resolved) Dysmenorrhea (Chronic) H/o iron deficiency with menses Essential hypertension (Chronic) Hyperlipidemia (Chronic 10/10/17) 09/2017 labs: 10-year ASCVD risk = ~5.9% --> no statin indicated at this time Hypokalemia (Chronic) IFG (impaired fasting glucose) (Chronic 10/10/17) Migraines (Chronic) Polyp of cecum (Inactive ~03/11/18) Pulmonary nodule, right (Chronic ~05/29/19) Incidental finding; repeat noncontrast chest CT 1 year Uterine fibroid (Chronic) Pt reports h/o, also seen on 04/11/2018 CT Family History Mother Diabetes Essential hypertension Father Heart disease Sister , Cancer Neoplasm Cancer Sister No problems noted. Brother No problems noted. Brother No problems noted. Daughter Heart disease Social History Smoking/Tobacco Use Status: Never Second Hand Exposure: Yes Alcohol Intake: former Drug use: Never Substance use type: does not use Details: ate marijuana brownies 08/15/18 bad reaction Adopted: No Caregiver/Support person: No Foster care: No Household members: spouse Number of Children: 3 Communication Needs: None current occupation: House cleaning Pets and animals: No Sexually active: Yes Do you think of yourself as: straight/heterosexual Current gender identity: female What type of physical activity do you participate in: walking Duration: 15-30 minutes/day Do you feel safe at home: Yes Do you feel safe in your relationship?: Yes Exam Const General: cooperative [facility] Head: normocephalic and atraumatic Mouth: other (Dry mucous membranes) Eyes Conjunctivae: normal conjunctivae Sclera: normal sclerae Pupils: PERRL EOM: EOM intact bilaterally Neck Neck: trachea midline and supple Resp Effort & Inspection: no respiratory distress and tachypneic (Intermittent, forced) Auscultation: clear to auscultation bilaterally, no rales, no rhonchi and no wheezes Cardio Jugular venous pressure: no JVD Rate: regular rate and not tachycardic Rhythm: regular rhythm GI Palpation: soft, not firm, no guarding, no masses, not rigid and nontender Skin Rashes: no rashes Other: Dry skin with some desquamation hands bilaterally Neuro General: patient alert, patient awake, patient oriented x3 and tone normal Cranial Nerves: CN's II-XI intact bilaterally Cognition: normal cognition Speech: speech normal Motor: muscle tone normal throughout and strength 5/5 throughout Sensory Exam: no sensory deficits noted Extrem General: no calf tenderness and no edema Psych Appearance: grossly normal Course Vital Signs Vital signs: Vital Signs Temperature 36.0 C L 06/17/19 01:50 Pulse 91 H 06/17/19 01:50 Respiratory Rate 16 06/17/19 01:50 Blood Pressure 166/91 H 06/17/19 01:50 Pulse Oximetry 97 06/17/19 01:50 Temperature 36.0 C L 06/17/19 01:50 Pulse 91 H 06/17/19 01:50 Respiratory Rate 16 06/17/19 01:50 Respiratory Effort 06/17/19 02:00 Blood Pressure 166/91 H 06/17/19 01:50 Blood Pressure Position Sitting 06/17/19 01:50 Pulse Oximetry 97 06/17/19 01:50 Oxygen Delivery Method Room Air 06/17/19 01:50 Oxygen Flow Rate 0 06/17/19 01:50 Pain Level 10 06/17/19 01:50 Procedures Lumbar Puncture Time Out Performed: Yes Patient Position: right lateral decubitus Skin Prep: Povidone-Iodine 1% Local Anesthetic: Lidocaine 1% Amount of anesthesia used (mL): 5 Spinal Needle Gauge: 22G Interspace Used: L4-L5 Opening Pressure (cmH20): 18 Fluid Initially Obtained: other (blood tinge) Complications: none
[2019-06-17] MEDS: Ketorolac 15 MG/ML VIAL IVP (02:34)
[2019-06-17] MEDS: LORazepam 2 MG/ML VIAL 1 MG IVP (02:35)
[2019-06-17] MEDS: Lactated Ringers 500 ML IV ×2 (02:35→03:46)
[2019-06-17 02:46] LABS: ALT 26 U/L (14-59); AST 17 U/L (15-37); Albumin 3.8 g/dL (3.4-5.0); Alkaline Phosphatase 102 U/L (46-116); BUN 17 mg/dL (7-18); Bilirubin, Total 0.6 mg/dL (0.2-1.0); Calcium 9.3 mg/dL (8.5-10.1); Chloride 103 mmol/L (98-107); Estimated GFR 52.16 (mL/min/1.73m2); Glucose 131 mg/dL (74-106); Potassium 3.8 mmol/L (3.5-5.1); Sodium 139 mmol/L (136-145); Total Protein 7.8 g/dL (6.4-8.2)
[2019-06-17 02:51] LABS: Abs Immature Grans 0.02 k/cumm (0.0-0.09); Absolute Basophil Count 0.04 k/cumm (0.0-0.2); Absolute Eosinophil Count 0.25 k/cumm (0.0-0.7); Absolute Lymphocyte Count 4.61 k/cumm (1.2-3.4); Absolute Monocyte Count 0.51 k/cumm (0.11-0.7); Absolute Neutrophil Count 3.67 k/cumm (1.2-6.7); Basophils % 0.4; Eosinophils % 2.7; HCT 37.3 % (36.0-46.0); HGB 12.5 g/dL (12.0-15.5); Immature Grans % 0.2 %; Lymphocytes % 50.7; Mean Corp. HGB Concentration 33.5 g/dL (32.0-36.0); Mean Corpuscular Hemoglobin 29.1 pg (27.0-33.0); Mean Corpuscular Volume 86.7 fL (80-95); Mean Platelet Volume 10.7 fL (8.0-11.0); Monocytes % 5.6; Neutrophils % 40.4; Platelet Count 267 x1000/uL (130-400); RBC Distribution Width 13.4 % (11.7-14.6)
[2019-06-17 02:57] LABS: TSH (W/Ref FT4) 3.76 uIU/mL (0.36-3.74)
[2019-06-17] MEDS: Omnipaque 350 MG/ML 100 ML BTL IJ (03:06)
[2019-06-17 03:15] VITALS: BP 141/70; PULSE 80; O2SAT 96
[2019-06-17 03:27] LABS: FREE T4 1.04 ng/dL (0.76-1.46)
--- NOTE | 2019-06-17 03:30 | DI.CT_ITS ---
EXAM: CT BRAIN NECK CTA CLINICAL HISTORY: SEPULVEDA, pressure in left head, felt burst. TECHNIQUE: Imaging Protocol: Axial CT angiography was performed with multi-slice acquisition and mu lti-planar and/or 3D reconstructions. CONTRAST MATERIAL: Intravenous: Omnipaque 350 Contrast volume:structured data in ml COMPARISON: CT THORAX ABD/PEL CTA from 05/29/2019 FINDINGS: CT Head W/O: Ventricles and Extra axial spaces: Normal in size and morphology for the patient's age. Hemorrhage: None. Cerebral parenchyma: Normal. Midline shift: None. Brainstem/Cerebellum: Normal. Calvarium: Normal. Visualized Paranasal sinuses/Mastoids: Clear. Soft Tissues: Unremarkable. CTA Brain W: Internal Carotid Arteries: Petrous: Normal. Cavernous: There is tortuosity in the cavernous segments bilaterally and a question of bilateral medi ally directed aneurysms, left measuring 3-4 millimeters and the right measuring 2-3 millimeters. Cerebral: Normal. Middle Cerebral Arteries: Right: No aneurysm, occlusion or significant stenosis. Left: No aneurysm, occlusion or significant stenosis. Anterior Cerebral Arteries: Right: No aneurysm, occlusion or significant stenosis. Left: No aneurysm, occlusion or significant stenosis. Posterior cerebral Arteries: Right: No aneurysm, occlusion or significant stenosis. Left: No aneurysm, occlusion or significant stenosis. Vertebral Arteries: Right: No aneurysm, occlusion or significant stenosis. Left: No aneurysm, occlusion or significant stenosis. Basilar Artery: No aneurysm, occlusion or significant stenosis. CTA Neck W: Common Carotid: Right: No aneurysm, occlusion or significant stenosis. Left: No aneurysm, occlusion or significant stenosis. External Carotid: Right: No aneurysm, occlusion or significant stenosis. Left: No aneurysm, occlusion or significant stenosis. Internal Carotid: Right: No aneurysm, occlusion or significant stenosis. Left: No aneurysm, occlusion or significant stenosis. Vertebral Artery: Right: No aneurysm, occlusion or significant stenosis. Left: No aneurysm, occlusion or significant stenosis. Lung Apices: There is a stable 4 millimeter nodule in the right upper lobe.. Bones: Mild degenerative disc changes in the cervical spine. Soft Tissues: Normal. IMPRESSION: 1. Tortuous cavernous segments of the internal carotid arteries with question of bilateral medially p rojecting aneurysms. 2. Unremarkable noncontrast CT Head. No evidence of hemorrhage. 3. Normal CTA examination of the neck. RADIATION DOSE DELIVERED: Total DLP DATA REPOSITORY: All CT scans at this facility are submitted to the National Radiology Data Registry (NRDR) Dose Index Registry (DIR) with the [employer] (ACR). RADIATION OPTIMIZATION: All CT scans at this facility use at least one of these dose optimization te chniques: automated exposure control; mA and/or kV adjustment per patient size (includes targeted exa ms where dose is matched to clinical indication); or iterative reconstruction.
[2019-06-17] MEDS: Normal Saline Flush 10 ML SYR IVP (03:46)
[2019-06-17] MEDS: Normal Saline - Diluent 50 ML VIAL IV (03:46)
--- NOTE | 2019-06-17 04:03 | DI.VRAD_ITS ---
PROCEDURE INFORMATION: Exam: CT Head Without Contrast Exam date and time: 06/17/2019 3:21 AM Age: 53 years old Clinical indication: Pain; Headache; Patient HX: SEPULVEDA, pressure in left head, felt burst; Additional info: Headaches for years TECHNIQUE: Imaging protocol: Computed tomography of the head without contrast. 3D rendering: MIP and/or 3D reconstructed images were created by the technologist. Radiation optimization: All CT scans at this facility use at least one of these dose optimization techniques: automated exposure control; mA and/or kV adjustment per patient size (includes targeted exams where dose is matched to clinical indication); or iterative reconstruction. COMPARISON: CT HEAD WO 05/20/2019 4:58 PM FINDINGS: Brain: Mild volume loss. No hemorrhage. Unremarkable white matter. No mass effect. Ventricles: Normal. No ventriculomegaly. Bones/joints: Unremarkable. No acute fracture. Sinuses: Visualized sinuses are unremarkable. No fluid levels. Mastoid air cells: Visualized mastoid air cells are well aerated. Soft tissues: Unremarkable. IMPRESSION: No acute intracranial abnormality. Dictated and Authenticated by: Jose Angel Parisi MD. Ordering:JESUS Cuello MD
[2019-06-17 04:16] VITALS: BP 142/70; PULSE 82; RESP 16; TEMP 36.4; O2SAT 98
--- NOTE | 2019-06-17 05:00 | NUR.NOTE ---
Nursing Note: Pt up to bathroom to urinate. States she feels much better. Pain rating 2/10. Steady gait noted. aware.
--- NOTE | 2019-06-17 06:02 | NUR.NOTE ---
Nursing Note: Assisted MD with LP insertion. Consent signed, procedure discussed, sterile technique observed. See MD note for details.
[2019-06-17 06:44] VITALS: BP 131/66; PULSE 64; RESP 14; TEMP 36.6; O2SAT 98
[2019-06-17 06:45] LABS: Glucose (CSF) 74 mg/dL (40-70); Total Protein (CSF) 29 mg/dL (15-45)
[2019-06-17 07:27] LABS: Tube # 4
[2019-06-17 07:28] LABS: Clarity Clear; RBC 5 /mm3 (0-5); WBC 1 /mm3 (0-5); Xanthochromia Absent
--- NOTE | 2019-06-17 23:58 | NUR.NOTE ---
REFERRAL FAXED TO PATIENT PCP FOR FOLLOW UP CARE Nursing Note:
== END 2019-06-17 07:57 | disposition home or self-care (01) ==
PROVIDERS: Emergency Provider Student in an Organized Health Care Education/Training Program; PCP Nurse Practitioner Family
DX: I67.1 Cerebral aneurysm, nonruptured (principal); R51 Headache; F41.8 Other specified anxiety disorders; I10 Essential (primary) hypertension; Z73.3 Stress, not elsewhere classified
CPT/HCPCS: 36415; 62270; 70496; 70498; 80053; 82945; 89050; 89051; 96361; 96374; 96375; 99285; 84157; 84439; 84443; 85025; 87070; 87205; J1885; J2060; J3490

== ENCOUNTER 2019-06-17 03:17 | Outpatient (CLI) | payer OTHER, SELFPAY ==
[2019-06-17 15:05] LABS: Anion Gap 8.4 mmol/L (3-11); BUN 15 mg/dL (7-18); C-Reactive Protein 0.35 mg/dL (0.0-0.3); CO2 27.6 mmol/L (21.0-32.0); CREATININE 0.92 mg/dL (0.55-1.02); Calcium 9.6 mg/dL (8.5-10.1); Chloride 104 mmol/L (98-107); Glucose 102 mg/dL (74-106); Magnesium 2.2 mg/dL (1.8-2.4); Potassium 4.2 mmol/L (3.5-5.1); Sodium 140 mmol/L (136-145)
== END 2019-06-17 03:37 ==
PROVIDERS: PCP Nurse Practitioner Family; Visit Provider Nurse Practitioner Family
DX: I10 Essential (primary) hypertension (principal); R19.4 Change in bowel habit; E87.6 Hypokalemia
CPT/HCPCS: 36415; 80048; 83735; 86140

== ENCOUNTER 2019-06-18 13:09 | Outpatient (REF) | payer OTHER, SELFPAY ==
[2019-06-19 10:27] LABS: Campylobacter PCR Negative (Negative); Salmonella PCR Negative (Negative); Shiga Toxin PCR Negative (Negative); Shigella/Enteroinvasive Ecoli Negative (Negative)
== END 2019-06-18 13:29 ==
LOC: LBN 13:09
PROVIDERS: PCP Nurse Practitioner Family; Visit Provider Nurse Practitioner Family
DX: R19.7 Diarrhea, unspecified (principal); R19.4 Change in bowel habit
CPT/HCPCS: 87505; 82270; 83630

== ENCOUNTER 2019-06-26 12:25 | Emergency (ER) | payer OTHER, SELFPAY ==
[2019-06-26] VITALS (26 sets, daily range): BP systolic 128–196; BP diastolic 71–110; PULSE 57–97; RESP 10–30; TEMP 36.6–36.9; O2SAT 98–100
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
[2019-06-26 13:06] LABS: Abs Immature Grans 0.02 k/cumm (0.0-0.09); Absolute Basophil Count 0.06 k/cumm (0.0-0.2); Absolute Eosinophil Count 0.15 k/cumm (0.0-0.7); Absolute Lymphocyte Count 4.21 k/cumm (1.2-3.4); Absolute Monocyte Count 0.53 k/cumm (0.11-0.7); Absolute Neutrophil Count 4.02 k/cumm (1.2-6.7); Basophils % 0.7; Eosinophils % 1.7; HCT 39.5 % (36.0-46.0); HGB 12.9 g/dL (12.0-15.5); Immature Grans % 0.2 %; Lymphocytes % 46.8; Mean Corp. HGB Concentration 32.7 g/dL (32.0-36.0); Mean Corpuscular Hemoglobin 28.5 pg (27.0-33.0); Mean Corpuscular Volume 87.4 fL (80-95); Mean Platelet Volume 10.4 fL (8.0-11.0); Monocytes % 5.9; Neutrophils % 44.7; Platelet Count 336 x1000/uL (130-400); RBC 4.52 m/cumm (4.00-5.20); White Blood Cell Count 8.99 k/cumm (4.4-10.8)
--- NOTE | 2019-06-26 13:15 | DI.CT_ITS ---
EXAM: CT CHEST PE ABD PELVIS W CLINICAL HISTORY: L chest pain, L upper abd pain TECHNIQUE: COMPARISON: CT CT THORAX ABD/PEL CTA from 05/29/[address] THORAX ABD/PEL CTA from 05/29/[address] BRAIN NECK CTA from 06/17/2019 FINDINGS: CT examination of the chest, abdomen, pelvis was performed bolus infusion of 100 cc 350. Examination is compared to prior study of May 28. Note is again made of 4-5 millimeter in diameter right up per lobe intrapulmonary nodule, unchanged from the prior study. Lungs are otherwise clear, fissural nodule is also incidentally noted on the right. No pleural effusion. No evidence of pulmonary embol ic disease. Unremarkable appearance of the thoracic aorta major branches. No mediastinal or hilar a denopathy. Tracheobronchial tree appears intact. The liver and spleen are normal in appearance. No biliary dilatation. Gallbladder is CT normal. No pancreatic abnormality seen. Adrenals and kidneys are unremarkable. Abdominal aorta is normal diam eter and no major vascular abnormality is seen. No significant abdominal wall hernia seen. No signi ficant abdominal or pelvic adenopathy. Demographer structures grossly unremarkable. Appendix appears normal. No evidence bowel obstruction or diverticulitis. Question mild wall thicke guicho descending colon and sigmoid, colitis not excluded, please correlate clinically. IMPRESSION: No evidence of pulmonary embolic disease. Question mild colitis. Please correlate clinically. 4-5 millimeter in diameter right upper lobe lung nodule, follow-up chest CT may be obtained in 12 mon ths if there is high risk of lung carcinoma.
[2019-06-26 13:24] LABS: ALT 25 U/L (14-59); AST 16 U/L (15-37); Albumin 4.2 g/dL (3.4-5.0); Alkaline Phosphatase 110 U/L (46-116); Anion Gap 8.1 mmol/L (3-11); BUN 13 mg/dL (7-18); Bilirubin, Total 0.6 mg/dL (0.2-1.0); CO2 26.9 mmol/L (21.0-32.0); CREATININE 1.09 mg/dL (0.55-1.02); Calcium 9.6 mg/dL (8.5-10.1); Chloride 101 mmol/L (98-107); Estimated GFR 52.71 (mL/min/1.73m2); Glucose 128 mg/dL (74-106); Magnesium 2.1 mg/dL (1.8-2.4); Potassium 3.4 mmol/L (3.5-5.1); Sodium 136 mmol/L (136-145); Total Protein 8.5 g/dL (6.4-8.2)
[2019-06-26 13:26] LABS: Troponin I < 0.05 ng/Ml (<0.06)
[2019-06-26] MEDS: Normal Saline 1,000 ML 1000 ML IV (13:36)
[2019-06-26 13:46] LABS: Lipase 101 U/L (73-393)
[2019-06-26] MEDS: Ondansetron 4 MG/2 ML VIAL IVP (13:49)
[2019-06-26] MEDS: Famotidine 20 MG/2 ML VIAL IJ (13:50)
[2019-06-26] MEDS: Normal Saline Flush 10 ML SYR IVP ×2 (13:50→16:15)
[2019-06-26] MEDS: diphenhydrAMINE 50 MG/ML VIAL 25 MG IVP (14:06)
[2019-06-26 14:58] LABS: *AMPHETAMINES SCREEN URINE Negative (Negative); *BARBITURATES SCREEN URINE Negative (Negative); *BENZODIAZEPINES SCREEN URINE Negative (Negative); Cannabinoids THC Negative (Negative); Cocaine Screen,Urine Negative (Negative); METHADONE URINE SCREEN Negative (Negative); OPIATES URINE SCREEN Negative (Negative); Tricyclic Antidepressants Negative (Negative)
[2019-06-26] MEDS: Omnipaque 350 MG/ML 100 ML BTL IJ (15:24)
[2019-06-26] MEDS: LORazepam 0.5 MG TAB PO (16:13)
[2019-06-26] MEDS: Ketorolac 30 MG/ML VIAL IVP (16:14)
[2019-06-26] MEDS: Lidocaine 5% Patch 1 PATCH TP (16:19)
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
[2019-06-26] MEDS: LORazepam 0.5 MG TAB 2 MG PO (16:39)
== END 2019-06-26 16:45 | disposition home or self-care (01) ==
PROVIDERS: Emergency Provider Physician Assistant; PCP Nurse Practitioner Family
DX: R07.89 Other chest pain (principal); F41.8 Other specified anxiety disorders; R10.12 Left upper quadrant pain; Z63.9 Problem related to primary support group, unspecified; I10 Essential (primary) hypertension
CPT/HCPCS: 36415; 71275; 74177; 80053; 80307; 81025; 83690; 93005; 96361; 96374; 96375; 99285; 83735; 84484; 85025; 93010; J1200; J1885; J2405; J3490

== ENCOUNTER 2019-07-03 10:40 | Outpatient (REF) | payer OTHER, SELFPAY ==
[2019-07-07 12:22] LABS: IgA 83 mg/dL (85-499); Interpretation (See Note); Tissue Transglutaminase IgA <1.2 U/mL (<4.0)
== END 2019-07-03 11:00 ==
LOC: LBN 10:40
PROVIDERS: PCP Nurse Practitioner Family; Visit Provider Nurse Practitioner Family
DX: R10.84 Generalized abdominal pain (principal); R12 Heartburn; R19.4 Change in bowel habit; K52.9 Noninfective gastroenteritis and colitis, unspecified; G89.29 Other chronic pain
CPT/HCPCS: 82784; 83516

== ENCOUNTER 2019-07-10 12:30 | Outpatient (REF) | payer OTHER, SELFPAY ==
[2019-07-15 16:03] LABS: Helicobacter pylori Ag, Feces Negative (Negative)
== END 2019-07-10 12:50 ==
LOC: LBN 12:30
PROVIDERS: PCP Nurse Practitioner Family; Visit Provider Nurse Practitioner Family
DX: G89.29 Other chronic pain (principal); R10.84 Generalized abdominal pain; R19.4 Change in bowel habit; R12 Heartburn
CPT/HCPCS: 87338

== ENCOUNTER 2019-09-04 01:33 | Outpatient (CLI) | payer OTHER, SELFPAY ==
[2019-09-04 10:16] LABS: Hemoglobin A1C 6.6 % (3.8-5.6)
[2019-09-04 10:45] LABS: ALT 21 U/L (14-59); AST 18 U/L (15-37); Albumin 3.8 g/dL (3.4-5.0); Alkaline Phosphatase 95 U/L (46-116); BUN 16 mg/dL (7-18); Bilirubin, Total 0.3 mg/dL (0.2-1.0); CREATININE 1.13 mg/dL (0.55-1.02); Calcium 9.3 mg/dL (8.5-10.1); Calculated LDL 138 mg/dL (<100); Chloride 108 mmol/L (98-107); Cholesterol 199 mg/dL (<200); Estimated GFR 50.56 (mL/min/1.73m2); Glucose 110 mg/dL (74-106); HDL Cholesterol 41 mg/dL (40-60); Potassium 4.1 mmol/L (3.5-5.1); Sodium 143 mmol/L (136-145); Total Protein 7.1 g/dL (6.4-8.2); Triglyceride 101 mg/dL (<150)
[2019-09-05 09:07] LABS: HIV-1/2 Ag & Ab Screen Negative (Negative)
== END 2019-09-04 01:53 ==
PROVIDERS: PCP Nurse Practitioner Family; Visit Provider Nurse Practitioner Family
DX: I10 Essential (primary) hypertension (principal); R73.01 Impaired fasting glucose; E78.5 Hyperlipidemia, unspecified; Z11.4 Encounter for screening for human immunodeficiency virus [HIV]
CPT/HCPCS: 36415; 80053; 80061; 87389; 83036

== ENCOUNTER 2019-09-22 10:58 | Outpatient (REF) | payer OTHER, SELFPAY ==
[2019-09-22 21:45] LABS: Bilirubin Negative (Negative); Blood Negative (Negative); Clarity Clear (Clear); Glucose Negative (Negative); Ketones Negative (Negative); Leukocyte Esterase Negative (Negative); Nitrite Negative (Negative); Urobilinogen 0.2 EU/dL (Up TO 0.2); pH 8.5 (5-8)
== END 2019-09-22 11:18 ==
LOC: LBN 10:58
PROVIDERS: PCP Nurse Practitioner Family; Visit Provider Nurse Practitioner Family
DX: N28.9 Disorder of kidney and ureter, unspecified (principal)
CPT/HCPCS: 81003

== ENCOUNTER 2019-09-30 01:06 | Outpatient (CLI) | payer OTHER, SELFPAY ==
--- NOTE | 2019-09-30 06:45 | DI.US_ITS ---
EXAM: US RENAL CLINICAL HISTORY: Persistent renal insuff, CKD vs. other?,CHRONIC KIDNEY DISEASE,N18.9. TECHNIQUE: Wilson scale, color and spectral Doppler were used. COMPARISON: No exams were available for comparison FINDINGS: Renal size in cm: Right: 9.4 left: 10.5 Echogenicity: Normal Hydronephrosis: No Cyst or mass: 12 millimeters cyst at the lower pole of the right kidney. Nephrolithiasis: No Other findings: None Bladder:Normal, not well distended. Prevoid vol:27 cc Postvoid vol: The right ureteral jet was visualized. The left ureteral jet was not seen. IMPRESSION: Unremarkable renal ultrasound. DATA REPOSITORY:
== END 2019-09-30 01:26 ==
PROVIDERS: PCP Nurse Practitioner Family; Visit Provider Nurse Practitioner Family
DX: N18.9 Chronic kidney disease, unspecified (principal)
CPT/HCPCS: 76770

== ENCOUNTER 2019-11-24 12:07 | Outpatient (REF) | payer OTHER, SELFPAY ==
[2019-11-24 18:35] LABS: ALT 17 U/L (14-59); AST 14 U/L (15-37); Alkaline Phosphatase 90 U/L (46-116); Anion Gap 8.1 mmol/L (3-11); BUN 17 mg/dL (7-18); Bilirubin, Total 0.5 mg/dL (0.2-1.0); CO2 29.9 mmol/L (21.0-32.0); CREATININE 1.05 mg/dL (0.55-1.02); Calcium 9.4 mg/dL (8.5-10.1); Chloride 107 mmol/L (98-107); Estimated GFR 55.04 (mL/min/1.73m2); Glucose 110 mg/dL (74-106); Potassium 4.2 mmol/L (3.5-5.1); Sodium 145 mmol/L (136-145); Total Protein 7.7 g/dL (6.4-8.2)
== END 2019-11-24 12:27 ==
LOC: LBN 12:07
PROVIDERS: PCP Nurse Practitioner Family; Visit Provider Nurse Practitioner Adult Health
DX: N18.30 Chronic kidney disease, stage 3 unspecified (principal); K76.0 Fatty (change of) liver, not elsewhere classified
CPT/HCPCS: 80053

== ENCOUNTER 2020-03-29 10:06 | Outpatient (REF) | payer OTHER, SELFPAY ==
--- NOTE | 2020-03-29 09:15 | PAPFT_PTH ---
PATIENT: Kyree Yao LOC: [facility] U#:[id number] AGE/SX: 54/F ROOM: RE03/29/[address]: PANDA Duvall : 1965 BED: DIS: 03/29/2020 SPEC #: [id number] RECD: 03/29/20 13:03 STATUS: ARTEM RELeonardo #: [id number] DANIELE: 03/29/20 09:[address]: Peggy Nolasco DEPT: [facility] Cytology RECD BY: Alejandra Seals ENTERED: 03/29/20 13:03 SP TYPE: PAPFT OTHR DR: Angela Gleason APRN Tissues: 1 - CX/ENDOCX FOR PAP SMEARS Procedures: PAP THIN PREP/UVM Screening HPV DNA PROBE Comments: [id number]
== END 2020-03-29 10:07 | disposition home or self-care (01) ==
LOC: LBN 10:06
PROVIDERS: PCP Nurse Practitioner Family; Visit Provider Nurse Practitioner Family
DX: R10.2 Pelvic and perineal pain (principal); Z12.4 Encounter for screening for malignant neoplasm of cervix; Z11.51 Encounter for screening for human papillomavirus (HPV)
CPT/HCPCS: 88142; 87086; 87624

== ENCOUNTER 2020-04-02 00:46 | Outpatient (CLI) | payer OTHER, SELFPAY ==
--- NOTE | 2020-04-02 08:11 | DI.NM_ITS ---
EXAM: NM HEPATOBILIARY CCK GRP CLINICAL HISTORY: CHRONIC RUQ PAIN,CKDR10.84,K21.9,R10.11. TECHNIQUE: Injected dose: 5 mCi Tc-99 mebrofenin Initial dynamic images: 60 minutes Post-Gallbladder fillin.02 mcg/kg CCK intravenously over a 15min infusion. Addition images: 20 minute dynamic during CCK administration. COMPARISON: CT CT CHEST PE ABD PELVIS W from 06/26/[address] CHEST PE ABD PELVIS W from 06/26/2019 US US RENAL from 09/30/2019 FINDINGS: Normal hepatic transit time. Prompt excretion into the small bowel. Prompt excretion into the gallbladder. Gallbladder ejection fraction 82 percent, in the normal range. IMPRESSION: 1. No evidence of acute cholecystitis or acalculous disease. Normal gallbladder ejection fraction SN guidelines: Gallbladder visualization should be present by 3 hours. Delayed rzpwrgz-os-gydth wooten sit beyond 60 min raises the suspicion for partial common bile duct (CBD) obstruction. Gallbladder ejection fraction <35% has a good correlation with acalculous disease (i.e., chronic acal culous cholecystitis, cystic duct syndrome, sphincter of Oddi disease).
[2020-04-02] MEDS: Sincalide 5 MCG VIAL 1.6 MCG IJ (15:01)
== END 2020-04-02 00:47 ==
LOC: DI 00:47
PROVIDERS: PCP Nurse Practitioner Family; Visit Provider Surgery
DX: R10.11 Right upper quadrant pain (principal); K21.9 Gastro-esophageal reflux disease without esophagitis; G89.29 Other chronic pain
CPT/HCPCS: 78227

== ENCOUNTER 2020-04-14 00:57 | Outpatient (CLI) | payer OTHER, SELFPAY ==
--- NOTE | 2020-04-14 06:30 | DI.MAMMO_ITS ---
EXAM: MG MAMMO SCREENING CLINICAL HISTORY: screening,Z12.39 TECHNIQUE: Bilateral full field digital CC and MLO mammographic images were obtained with 3D tomosyn thesis and utilizing computer aided detection (CAD). COMPARISON: Available for comparison. FINDINGS: Masses/Architectural Distortion: None seen. Microcalcifications: No suspicious pleomorphic-type are seen. Skin Thickening/Nipple Retraction: None. IMPRESSION: 1. No significant interval change with no specific features of malignancy noted. 2. Unless there is more urgent need, screening mammography is recommended, as per [place] [employer] guidelines. BI-RADS Category 1 - Negative Breast Density - Category C - Heterogeneously dense Breast density category C or D implies that the patient has dense breast tissue. Dense breast tissue is very common and is not abnormal but dense breast tissue can make it harder to find cancer on a ma mmogram. Also, dense breast tissue may increase their breast cancer risk. This information about the result of the mammogram report was provided to the patient to raise their awareness. Use this report when you speak with the patient about their risks for breast cancer, which includes their family hist ory. At that time, you may recommend for more screening tests (Ultrasound or MRI) as they might be us eful based on their risk. A negative radiographic report should not delay biopsy if a dominant or clinically suspicious mass is present. Up to ten percent of cancers are not identified on mammography. A negative report may reinforce clinical impression. Adenosis and dense breasts may obscure an underlying neoplasm. False positive reports average 6 to 10%. Patient will receive a letter notifying them of these results.
--- NOTE | 2020-04-14 06:30 | DI.US_ITS ---
EXAM: US PELVIS TRANSVAGINAL CLINICAL HISTORY: Pelvic pain and dyspareunia,R10.2. TECHNIQUE: Transabdominal and transvaginal pelvic ultrasound was performed using standard protocol. COMPARISON: No exams were available for comparison FINDINGS: KIDNEYS: Kidneys are symmetric in size. No evidence of renal calculi. No evidence of hydronephrosis. No renal mass or cyst identified. UTERUS: Position: Anteverted. Size: 8.2 long by 4.3 AP by 5.6 transverse cm Endometrium: 0.8 cm. Thickened for the patient's menstrual status. It is heterogeneous and avascular . Myometrium: Heterogeneous myometrium with several discrete small hypoechoic masses. The largest ángel ures 1.3 x 1.1 x 1.1 cm. The findings are suspicious for multiple uterine fibroids. Cervix: Unremarkable. OVARIES: The ovaries were not visualized transabdominally or transvaginally. No adnexal masses are s een sonographically. CUL-DE-SAC: Free fluid: None. Other: None. IMPRESSION: 1. Normal sonographic appearance of the kidneys. 2. Heterogeneous uterus with multiple hypoechoic masses suggesting multiple uterine fibroids. 3. Thickened heterogeneous endometrial stripe in this postmenopausal patient. Gynecologic consult is recommended for further evaluation. The findings can be seen in endometrial hyperplasia or neoplasm . 4. The ovaries were not visualized transabdominally or transvaginally. No adnexal mass is seen sonog raphically. DATA REPOSITORY:
== END 2020-04-14 01:17 ==
PROVIDERS: PCP Nurse Practitioner Family; Visit Provider Nurse Practitioner Family
DX: Z12.31 Encounter for screening mammogram for malignant neoplasm of breast (principal); R10.2 Pelvic and perineal pain; D25.9 Leiomyoma of uterus, unspecified
CPT/HCPCS: 77063; 77067; 76830; 76856

== ENCOUNTER 2020-04-16 11:14 | Outpatient (CLI) | payer OTHER, SELFPAY ==
--- NOTE | 2020-04-16 13:00 | DI.RAD_ITS ---
EXAM: XR THORACIC SPINE COMPLETE CLINICAL HISTORY: BACK PAIN. TECHNIQUE: 2D digital imaging was performed. COMPARISON: No exams were available for comparison FINDINGS: There is normal alignment of the thoracic spine. No acute fracture or subluxation is seen mild degen erative changes are seen in the mid and lower thoracic spine. No acute fractures or subluxations are present. The paraspinal lines are unremarkable. The visualized lungs are clear. IMPRESSION: Degenerative changes in the thoracic spine. DATA REPOSITORY: RADIATION DOSE DELIVERED:
--- NOTE | 2020-04-16 13:00 | DI.RAD_ITS ---
EXAM: XR LUMBAR SPINE COMPLETE CLINICAL HISTORY: BACK PAIN. TECHNIQUE: 2D digital imaging was performed. COMPARISON: No exams were available for comparison FINDINGS: There is normal alignment of the lumbar spine. No spondylolysis or spondylolisthesis is present. Th e vertebral body disc heights and posterior elements are well maintained. Endplate osteophytes are s een at multiple levels of the lumbar spine. There are degenerative changes of the facets at L4-5 and L5-S1. No acute fracture or subluxation is seen. IMPRESSION: Ozqm-gl-mpomrcid degenerative changes in the lumbar spine. DATA REPOSITORY: RADIATION DOSE DELIVERED:
== END 2020-04-16 11:34 ==
PROVIDERS: PCP Nurse Practitioner Family; Visit Provider Surgery
DX: M47.814 Spondylosis without myelopathy or radiculopathy, thoracic region (principal); M47.816 Spondylosis without myelopathy or radiculopathy, lumbar region
CPT/HCPCS: 72072; 72110

== ENCOUNTER 2020-04-16 11:54 | Day surgery (SDC) | payer OTHER, SELFPAY ==
--- NOTE | 2020-04-15 20:35 | W.PM.HP.N ---
Date of service: 04/16/20 Time of Service: 12:00 Assessment and Plan Assessment and plan (1) Chronic generalized abdominal pain: Status: Acute Assessment and plan: Plan:EGD w/ Bx -Her recent HIDA scan was negative. Patient is complaining of pain in the epigastric position. I reviewed with her what she could expect during the procedure, post procedurally, recovery time, and risks, including but not limited to:: Bleeding, infection, pneumonia, aspiration, perforation which would necessitate surgery, and complications of anesthesia. Patient is in agreement with doing the EGD today. Patient is seen and examined on 04/16/2020. Heart is regular rate and rhythm. Lungs are clear to auscultation. She is complaining of mild epigastric pain . No masses. Good bowel sounds. Stable for proposed procedure. I did review the thoracic and lumbar spine series she had today. Degenerative changes noted moderate in the lumbar spine. Plavix and coumadin will need to be held except in unusual circumstances. patient in A. Fib do not need to be bridged with Lovenox or on CVA prophylaxis. A baby ASA can be continued but full dose ASA needs to be stopped for 10 days prior to the procedure. A complete H & P is required with in 30 days of the procedure. MAC is used for the EGD. EGD does not require antibiotics prophylaxis. Risks: Informed consent is obtained for the procedural (explained in simple layman's terms that the pt and/or family could understand) explaining risks vs benefits and alternatives to the procedure and consequences if we do not do the procedure and need/rational for the procedure. Risks include but are not limited to:bleeding, infection, perforation of colon. This would necessitate emergency surgery to repair the damage w/ possible ostomy; and other associated complications w/ the required surgery. Also complications of anesthesia including aspiration,PA/CVA/. I discussed with the patient would they could expect during the procedure, post procedure and recovery time and risks. The patient understands that they need to have a ride home after the procedure. The patient was given all this information in writing and expressed understanding. Thank you for allowing me to participate in the care of this Patient. A copy of the Endoscopy report will be forwarded to your office. If there are any questions or concerns please feel free to contact my office (2) Chronic RUQ pain: Status: Acute (3) Obesity: Status: Chronic Qualifiers: Body mass index: BMI 35.0-35.9 Obesity classification: adult class 2 (BMI 35 - 39.9) Obesity type: due to excess calories Serious obesity comorbidity presence: with serious comorbidity Qualified Code(s): E66.01 - Morbid (severe) obesity due to excess calories; Z68.35 - Body mass index [BMI] 35.0-35.9, adult (4) Type 2 diabetes mellitus: Status: Chronic Qualifiers: Diabetes mellitus complication status: without complication Diabetes mellitus exterminator helper termite insulin use: without penitentiary use Qualified Code(s): E11.9 - Type 2 diabetes mellitus without complications (5) Gastroesophageal reflux disease: Status: Chronic Qualifiers: Esophagitis presence: esophagitis presence not specified Qualified Code(s): K21.9 - Gastro-esophageal reflux disease without esophagitis (6) Cerebral aneurysm: Status: Chronic (7) Abnormal endometrial ultrasound: Status: Acute (8) Chronic low back pain with right-sided sciatica: Status: Acute History of Present Illness Narrative: from clinic note 03/22. Patient is here today regarding the chronic abdominal pain she has had for some time. What patient describes to me is actually fact pain that is in the upper thoracic low lumbar spine. Yesterday she said she was standing and chopping vegetables and started having severe pain that starts in her back and wraps around to the front on the right side. It is associated with nausea. Patient did some exercises to loosen up her back and it felt better after that. She denies increase in pain with bending over. She denies increase in pain with any hip movement. She notes if she eats a lot of nuts that it will bother her stomach and give her a headache. Dairy gives her a headache. She follows a vegan diet at this point. She used to eat a lot of fatty meats and cook and pork fat. She does not drink caffeine. She does not use aspirin and NSAIDs at this point. She was on Protonix for some time. she says that the PPI did not help-she is not currently on it.. She does have steatosis noted on her ultrasound liver. She does not have gallstones on her most recent ultrasound of the abdomen. This has been going on for the last 2 years. She says that the pain is not associated with any diarrhea. When she does get the pain, she cannot really say if anything makes it better. Sometimes she feels like she has to drink a lot of water to cool things down. She says it feels like that there is something bursting inside of her. She also notes that she has had longstanding pain in her right shoulder. She saw physical therapy for this. They thought it was because she had tight scalenes and stretched her out so bad the last time that it gave her headache and she never went back. HIDA scan was done and was nl. will proceed w/ EGD pt has been having chronic abdominal pain for the past 2 yrs w/ no clear etiology. Today she is feeling Review of Systems All systems reviewed & are unremarkable except as noted in HPI and below [facility] Medical History (Updated 04/16/20 @ 12:36 by Jozef Landon) Anxiety and depression Breast discharge 04/11/2018 [facility] [place] [facility] consult: normal, monitor Cerebral aneurysm [facility] [place] Neurosurgery 08/2019-pt. states she has not had the surgery for this yet Chronic back pain Chronic rhinitis Diffuse cystic mastopathy of both breasts Dysgeusia Dysmenorrhea H/o iron deficiency with menses Essential hypertension Gastroesophageal reflux disease Hyperlipidemia (10/10/17) 08/2019 labs: 10-year ASCVD risk = ~5.3% --> no statin indicated at this time Hypertensive retinopathy of both eyes Hypokalemia Migraines Avoid triptans due to ICA aneurysms & vascular risk factors Obesity Polyp of cecum (~03/11/18) Pulmonary nodule, right (~06/2019) Incidental finding; repeat noncontrast chest CT 1 year Type 2 diabetes mellitus diet controlled Uterine fibroid Pt reports h/o, also seen on 04/11/2018 CT Family History Mother Diabetes Essential hypertension Father Heart disease Sister , Cancer Neoplasm Cancer Sister No problems noted. Brother No problems noted. Brother No problems noted. Daughter Heart disease Social History Smoking/Tobacco Use Status: Never Second Hand Exposure: Yes Smoking risk assessment performed?: Yes Alcohol Intake: former Drug use: Never Substance use type: does not use Adopted: No Caregiver/Support person: No Foster care: No Household members: spouse Number of Children: 3 Communication Needs: None current occupation: House cleaning Pets and animals: No Sexually active: Yes Do you think of yourself as: straight/heterosexual Current gender identity: female What type of physical activity do you participate in: walking Duration: 15-30 minutes/day Do you feel safe at home: Yes Do you feel safe in your relationship?: Yes Meds Home Medications and Allergies Allergies Allergy/AdvReac Type Severity Reaction Status Date / Time Iodinated Contrast Media Allergy Severe Rash Verified 04/14/20 10:05 lisinopril AdvReac Headache Verified 04/14/20 10:05 Home Medications Medication Instructions Recorded Confirmed Type cholecalciferol (vitamin D3) 2,000 unit PO DAILY 05/18/17 04/14/20 History [Vitamin D3] magnesium gluconate 27.5 mg 27.5 mg PO BID 04/08/19 04/14/20 History magnesium (500 mg) tablet potassium chloride 20 mEq 20 meq PO DAILY #90 tab-cap 05/12/19 04/14/20 Rx tablet,extended release fluticasone furoate 27.5 1 spray PEEWEE DAILY PRN 07/18/19 04/14/20 History mcg/actuation nasal spray,suspension hydrocortisone 2.5 % topical cream 1 applic TP BID-QID PRN #20 gm 07/30/19 04/14/20 Rx metoprolol succinate 25 mg 25 mg PO HS 08/14/19 04/16/20 History tablet,extended release 24 hr spironolactone 50 mg tablet 50 mg PO DAILY #90 tab-cap 08/21/19 04/14/20 Rx sertraline 100 mg tablet 100 mg PO DAILY #90 tab-cap 09/04/19 04/14/20 Rx erythromycin with ethanol 2 % 1 applic TP BID #30 gm 09/22/19 04/14/20 Rx topical gel pantoprazole 20 mg tablet,delayed 20 mg PO DAILY #90 tab-cap 09/22/19 04/14/20 Rx release topiramate 50 mg tablet 50 mg PO QHS #30 tab 01/07/20 04/14/20 Rx ascorbate calcium (vitamin C) 500 mg PO DAILY 03/25/20 04/14/20 History Exam Narrative Exam Narrative: PHYSICAL EXAM GENERAL APPEARANCE: Alert, healthy appearance, oriented, in no acute distress SKIN: No rashes. No breakdown HYDRATION: Well hydrated HEAD, EYES, EARS, NECK, AND THROAT: Head is normocephalic, pupils equal, round, reactive to light and accommodation, ocular movement intact, sclera clear Yes [place] and no jaundice. Dentition intact. No thrush NECK: Supple, Trachea midline. No JVD LUNGS: normal respiration, clear to auscultation HEART: Regular rate and rhythm, EXTREMITY: No edema or cyanosis no redness or calf pain ABDOMEN: non tender to palpation, no masses or distention, no hernias. Normal bowel sounds NEURO: no focal neuro deficits. COVID-19 Screening Have you, or household traveled for leisure in last 14 days?: No Had IN PERSON contact w/suspected or confirmed C-19 person: No
[2020-04-16] VITALS (8 sets, daily range): BP systolic 133–170; BP diastolic 61–86; PULSE 48–63; RESP 16–28; TEMP 35.9–36.4; O2SAT 97–100
[2020-04-16] MEDS: Lactated Ringers 1,000 ML 80 ML IV (12:52)
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
--- NOTE | 2020-04-16 14:49 | W.PM.DSUDISC ---
Discharge Plan Disposition Patient Disposition: HOME Condition: Fair Discharge Details Reason For Visit: stomach scope Attending Provider: Jana Dumont Primary Care Provider: Angela Gleason Home Meds and New Rx's Prescriptions: New pantoprazole [Protonix] 40 mg tablet,delayed release (DR/EC) 40 mg PO DAILY Qty: 30 RF: 12 Continued erythromycin with ethanol 2 % gel 1 applic TP BID Qty: 30 RF: 0 topiramate [Topamax] 50 mg tablet 50 mg PO QHS Qty: 30 RF: 6 potassium chloride 20 mEq tablet extended release 20 meq PO DAILY Qty: 90 RF: 3 fluticasone furoate 27.5 mcg/actuation spray,suspension 1 spray PEEWEE DAILY PRN (Reason: nasal congestion) RF: 0 magnesium gluconate 27.5 mg magne- sium (500 mg) tablet 27.5 mg PO BID RF: 0 hydrocortisone 2.5 % cream 1 applic TP BID-QID PRN (Reason: rash) Qty: 20 RF: 0 metoprolol succinate 25 mg tablet extended release 24 hr 25 mg PO HS RF: 0 spironolactone 50 mg tablet 50 mg PO DAILY Qty: 90 RF: 3 sertraline 100 mg tablet 100 mg PO DAILY Qty: 90 RF: 3 cholecalciferol (vitamin D3) [Vitamin D3] 2,000 UNIT tablet 2,000 unit PO DAILY RF: 0 Discontinued pantoprazole 20 mg tablet,delayed release (DR/EC) 20 mg PO DAILY Qty: 90 RF: 0 ascorbate calcium (vitamin C) 500 mg PO DAILY RF: 0 Discharge Instructions Additional Instructions: We could not do your procedure today. Follow up: Appt w/ PCP for next week. Continue with lifestyle modifications: no alcohol, tobacco products, Aspirin or NSAID's (ibuprofen, Motrin, Naprosyn, aleve, etc). Try to limit: soda pop/any carbonated beverages, caffeine (including tea & chocolate), and acidic foods, (tomatoes, citrus, onions, peppermints) spicy fatty foods. Do not lie down for 30 minutes after eating, and do not eat 2 hours prior to bedtime. Avoid wearing tight fitting clothing/ belts. stop Vit C. Increase protonix to 30mg po daily. Please call if you develop: fevers >101.5 Nausea or Vomiting Abdominal pain that is not transient DAY SURGERY UNIT POST COLONOSCOPY INSTRUCTIONS 1. Because there will be medication in your system for the next 24 hours, you may feel a little sleepy. Your coordination will be affected. Therefore: a. Do not drive or operate dangerous equipment for 24 hours. b. Do not drink alcohol beverages for 24 hours (not even beer). c. Plan to go home and rest for the day. 2. Generally there are no restrictions on your activity after a day or so has gone by, but you may feel a bit fatigued for a few days. 3 After you arrive home you may have a light meal and return to a normal diet as you can tolerate it without feeling sick to your stomach. 6. If you are unable to contact your doctor with a problem, contact the hospital at [phone]. 7. Continue all your regular medications unless directed otherwise. I understand the above instructions and have no questions. Signature of Patient or Responsible Adult Escort Date/Time Name of Responsible Adult Escort Signature of Nurse Date/Time Activity:: no strenuous activity x 24 hrs Shower/Bathe:: 24 hours Diet:: Small light meals x24 hours Discharge Orders Discharge Orders: Discharge Order (Routine); Ordered 04/15/20 Ordered By: Jana Dumont DS: Diagnosis Discharge Diagnosis (1) Chronic generalized abdominal pain: Status: Acute (2) Chronic RUQ pain: Status: Acute (3) Obesity: Status: Chronic (4) Type 2 diabetes mellitus: Status: Chronic (5) Gastroesophageal reflux disease: Status: Chronic (6) Cerebral aneurysm: Status: Chronic (7) Abnormal endometrial ultrasound: Status: Acute (8) Chronic low back pain with right-sided sciatica: Status: Acute (9) DJD (degenerative joint disease), lumbar: Status: Acute (10) Panic attacks: Status: Acute
--- NOTE | 2020-04-16 15:15 | RT.EKG_ITS ---
APPROVED REPORT Exam: Resting ECG Patient Location: O HR:60 bpm ECG Measurements Heart Rate 60 AXIS CA 186 P 37 QRSd 84 QRS -7 QT 461 T 20 QTc 429 Conclusion Sinus bradycardia...rate< 60 Ventricular premature complex...V complex w/ short R-R interval
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
[2020-04-16 16:14] LABS: BUN 21 mg/dL (7-18); CREATININE 0.9 mg/dL (0.55-1.02); Calcium 9.5 mg/dL (8.5-10.1); Chloride 105 mmol/L (98-107); Glucose 106 mg/dL (74-106); Potassium 4.3 mmol/L (3.5-5.1); Sodium 141 mmol/L (136-145)
[2020-04-16 16:22] LABS: Troponin I < 0.05 ng/mL (<0.06)
== END 2020-04-16 16:30 | disposition home or self-care (01) ==
PROVIDERS: PCP Nurse Practitioner Family; Visit Provider Surgery
PROC: 0DJ68ZZ Inspection of Stomach, Via Natural or Artificial Opening Endoscopic (ICD-10-PCS; CPT 43235; principal; 2020-04-16 12:00)
DX: R10.13 Epigastric pain (principal); Z53.09 Procedure and treatment not carried out because of other contraindication; R10.84 Generalized abdominal pain; F41.0 Panic disorder [episodic paroxysmal anxiety]; R07.89 Other chest pain; K21.9 Gastro-esophageal reflux disease without esophagitis
CPT/HCPCS: 43235; 80048; 99221; 83735; 84484; J2704

== ENCOUNTER 2020-04-30 03:30 | Outpatient (CLI) | payer OTHER, SELFPAY ==
[2020-05-03 20:14] LABS: Arsenic <1 ng/mL (<13); Cadmium 2.8 ng/mL (<5.0); Health Care Provider Phone 802-748-7500; Mercury <1 ng/mL (<10); Venous/Capillary Venous
== END 2020-04-30 03:31 | disposition home or self-care (01) ==
LOC: LBO 03:30
PROVIDERS: PCP Nurse Practitioner Family; Visit Provider Nurse Practitioner Family
DX: Z77.018 Contact with and (suspected) exposure to other hazardous metals (principal)
CPT/HCPCS: 36415; 82175; 82300; 83655; 83825

== ENCOUNTER 2020-05-03 15:22 | Emergency (ER) | payer OTHER, SELFPAY ==
[2020-05-03 15:27] VITALS: BP 168/85; PULSE 79; RESP 20; TEMP 36.4; O2SAT 99
[2020-05-03 15:32] VITALS: BP 152/78
--- NOTE | 2020-05-03 15:39 | ED.GENADUL_ITS ---
Discharge Plan Disposition Patient Disposition: HOME Condition: Stable Discharge Details Clinical Impression: Chronic abdominal pain, Bacterial vaginosis Primary Care Provider: Angela Gleason ED Provider: Nga Ayon Home Meds and New Rx's Prescriptions: New metronidazole [Flagyl] 500 mg tablet 500 mg PO BID 7 Days Qty: 14 RF: 0 Continued erythromycin with ethanol 2 % gel 1 applic TP BID Qty: 30 RF: 0 topiramate [Topamax] 50 mg tablet 50 mg PO QHS Qty: 30 RF: 6 potassium chloride 20 mEq tablet extended release 20 meq PO DAILY Qty: 90 RF: 3 fluticasone furoate 27.5 mcg/actuation spray,suspension 1 spray PEEWEE DAILY PRN (Reason: nasal congestion) RF: 0 magnesium gluconate 27.5 mg magne- sium (500 mg) tablet 27.5 mg PO BID RF: 0 hydrocortisone 2.5 % cream 1 applic TP BID-QID PRN (Reason: rash) Qty: 20 RF: 0 metoprolol succinate 25 mg tablet extended release 24 hr 25 mg PO HS RF: 0 spironolactone 50 mg tablet 50 mg PO DAILY Qty: 90 RF: 3 sertraline 100 mg tablet 100 mg PO DAILY Qty: 90 RF: 3 cholecalciferol (vitamin D3) [Vitamin D3] 2,000 UNIT tablet 2,000 unit PO DAILY RF: 0 pantoprazole [Protonix] 40 mg tablet,delayed release (DR/EC) 40 mg PO DAILY Qty: 30 RF: 12 Discharge Instructions Instructions: Bacterial Vaginosis (ED), Chronic Pain (ED) Additional Instructions: Drink plenty of fluids and get plenty of rest. Alternate tylenol and motrin as needed and directed for pain. Your prescription has been sent electronically to your pharmacy. Call the pharmacy to make sure your prescription is ready before pickup. Take the prescription as directed. Call Dr. Bejarano's office tomorrow to schedule a follow-up appointment for reevaluation. Call your counselor Shola from [facility] tomorrow for follow-up. Follow-up with your primary care doctor in 1 week. Return to the emergency department with any worsening or new concerning symptoms. Referrals: Jana Dumont DO [OSTEOPATHIC DOCTOR] - Discharge Data Discharge Physician: Nga J Bugbee Medical Decision Making 54-year-old female with a history of anxiety and depression, panic attacks, chronic abdominal pain, GERD, migraines, hypertension, hyperlipidemia, diabetes and obesity presents for right flank pain with radiation to her right upper quadrant bilateral lower abdomen for the past 2 years, worse over the past few months. Patient appears comfortable and nontoxic. Her blood pressure is mildly hypertensive, remainder vitals within normal limits. She has no CVA tenderness. She has no right upper quadrant tenderness. She has minimal suprapubic but no right lower quadrant or left lower quadrant tenderness. Patient also expressed concerns about poisoning by her . Review of records shows that I saw patient last year in the ED for a similar complaint and concerns. Patient states she has never seen her trying to poison her or had any evidence of this. She states she has asked him about this and he denies this. A PCP note from Angela Gleason from 4 days ago notes that patient expressed this concern to her as well. From an emergency department standpoint, will check screening labs, ultrasound and CT renal colic. Patient had a pelvic ultrasound earlier this month which was negative but they were unable to get the ovaries. As she has no right lower or left lower quadrant tenderness and her pain is chronic, do not see an indication to repeat this. Considering patient's body habitus and history, will obtain a gallbladder ultrasound to rule out cholecystitis as well as a CT to rule out kidney stones. Will give a dose of Toradol and reassess. Pelvic exam was also done at bedside due to her complaint of dysuria at times and burning lower abdominal pain. Pelvic exam normal to inspection with speculum and bimanual exam. Cervical swabs sent. Do not see an indication for prophylactic treatment as she denies any vaginal discharge and no CMT or adnexal tenderness. Labs and imaging reviewed. Normal white blood cell count. Normal electrolytes. Urinalysis negative. Abdominal ultrasound and CT negative for acute findings. Patient reassessed and she states she feels much better after Toradol. Discussed with patient at length her concern for potential poisoning by her as a cause of her symptoms. Patient states this mainly comes from a lack of trust with her . She states her has smoked marijuana in the house for quite some time and her symptoms improved when he stopped smoking inside the home. She states she feels that the symptoms have returned since he started smoking marijuana in the home again. She also states she stopped eating the food that he cooks last year but she is still concerned about cold beverages in the fridge. Patient states she does feel safe going home. She states she has spoke to a counselor Diana as well as Leanne from [facility]. Patient stated that she recently had an attempted EGD with stopped due to a reaction to sedation. Patient is advised to follow-up again with Dr. Dumont for reevaluation and consideration for referral to GI. Her vaginal Pap screen was positive for Gardnerella. She was given a dose of Flagyl here as well as a prescription sent to the pharmacy. She is advised alternate Tylenol Motrin for her chronic pain and to follow-up again with her counselor Diana as well as Leanne from [facility]. Usual and customary return precautions given prior to discharge. Medical Records Medical records reviewed: Yes I reviewed the patient's medical records. Imaging Data Radiologic Study: Radiologist's impression: US Abdomen; Limited Exam date and time: 05/03/2020 4:45 PM Age: 54 years old Clinical indication: Pain; Other: Ruq/rlq/llq TECHNIQUE: Imaging protocol: US abdomen. Real time ultrasound with image documentation. Limited exam focused on the region of clinical interest. COMPARISON: CT ABDOMEN PELVIS W 05/13/2019 10:48 PM FINDINGS: Gallbladder: Gallbladder wall 2.2 mm Common bile duct: Common duct measures 2.6 mm Right kidney: Right kidney 9.9 cm. No hydronephrosis IMPRESSION: No acute process CT Abdomen And Pelvis Without Contrast Exam date and time: 05/03/2020 4:52 PM Age: 54 years old Clinical indication: Abdominal pain; Right; Patient HX: R flank pain w rad to ruq TECHNIQUE: Imaging protocol: Computed tomography of the abdomen and pelvis without contrast. COMPARISON: CT ABDOMEN PELVIS W 05/13/2019 10:48 PM FINDINGS: Liver: Normal. No mass. Gallbladder and bile ducts: Normal. No calcified stones. No ductal dilation. Pancreas: Normal. No ductal dilation. Spleen: Normal. No splenomegaly. Adrenal glands: Normal. No mass. Kidneys and ureters: 13 mm simple cyst lateral right kidney There is no evidence of renal or ureteral calcifications. There is no evidence of renal or ureteral calcifications. Stomach and bowel: Unremarkable. No obstruction. No mucosal thickening. Appendix: Normal appendix. Intraperitoneal space: Unremarkable. No free air. No significant fluid collection. Vasculature: Unremarkable. No abdominal aortic aneurysm. Lymph nodes: Unremarkable. No enlarged lymph nodes. Urinary bladder: Unremarkable as visualized. Reproductive: Unremarkable as visualized. Bones/joints: Unremarkable. No acute fracture. Soft tissues: Unremarkable. IMPRESSION: No acute process Lab Data Lab results reviewed: Yes I reviewed the patient's lab results. Labs: 05/03/20 17:25 Vaginal Vaginitis Screen - Final Laboratory Tests Range/Units 05/03/20 05/03/20 05/03/20 16:12 16:12 16:12 WBC (4.4-10.8) 10^3/uL 8.39 RBC (3.93-5.22) 10^6/uL 4.06 Hgb (11.2-15.7) g/dL 11.7 Hct (36.0-46.0) % 36.1 MCV (80-95) fL 88.9 MCH (27.0-33.0) pg 28.8 MCHC (32.0-36.0) % 32.4 RDW (11.7-14.6) % 13.2 Plt Count (130-400) 10^3/uL 260 MPV (8.0-11.0) fL 10.1 Immature Gran % 0.2 Neutrophils % 40.9 Lymphocytes % 48.4 Monocytes % 7.4 Eosinophils % 2.3 Basophils % 0.8 Nucleated RBC % % 0 Absolute Neutrophils (1.2-6.7) 10^3/uL 3.43 Absolute Lymphocytes (1.2-3.4) 10^3/uL 4.06 H Absolute Monocytes (0.1-0.8) 10^3/uL 0.62 Absolute Eosinophils (0.0-0.7) 10^3/uL 0.19 Absolute Basophils (0.0-0.2) 10^3/uL 0.07 Sodium (136-145) mmol/L 141 Potassium (3.5-5.1) mmol/L 4.1 Chloride (98-107) mmol/L 103 Carbon Dioxide (21.0-32.0) mmol/L 29.3 Anion Gap (3-11) mmol/L 8.7 BUN (7-18) mg/dL 24 H Creatinine (0.55-1.02) mg/dL 1.0 Estimated GFR/1.73 m2 (mL/min/1.73m2) 58.00 Glucose (74-106) mg/dL 95 Calcium (8.5-10.1) mg/dL 9.4 Total Bilirubin (0.2-1.0) mg/dL 0.4 AST (15-37) U/L 14 L ALT (14-59) U/L 23 Alkaline Phosphatase (46-116) U/L 100 Total Protein (6.4-8.2) g/dL 8.1 Albumin (3.4-5.0) g/dL 3.9 Lipase (73-393) U/L 189 Urine Color (Yellow) Urine Clarity (Clear) Urine pH (5-8) Ur Specific Derwent (1.005-1.025) Urine Protein (Negative) mg/dL Urine Ketones (Negative) mg/dL Urine Blood (Negative) Urine Nitrite (Negative) Urine Bilirubin (Negative) Urine Urobilinogen (Up TO 0.2) EU/dL Ur Leukocyte Esterase (Negative) Urine Glucose (Negative) mg/dL Chlamydia/GC Source Chlamydia DNA Probe N.gonorrhoeae DNA Probe Range/Units 05/03/20 05/03/20 17:24 18:00 WBC (4.4-10.8) 10^3/uL RBC (3.93-5.22) 10^6/uL Hgb (11.2-15.7) g/dL Hct (36.0-46.0) % MCV (80-95) fL MCH (27.0-33.0) pg MCHC (32.0-36.0) % RDW (11.7-14.6) % Plt Count (130-400) 10^3/uL MPV (8.0-11.0) fL Immature Gran % Neutrophils % Lymphocytes % Monocytes % Eosinophils % Basophils % Nucleated RBC % % Absolute Neutrophils (1.2-6.7) 10^3/uL Absolute Lymphocytes (1.2-3.4) 10^3/uL Absolute Monocytes (0.1-0.8) 10^3/uL Absolute Eosinophils (0.0-0.7) 10^3/uL Absolute Basophils (0.0-0.2) 10^3/uL Sodium (136-145) mmol/L Potassium (3.5-5.1) mmol/L Chloride (98-107) mmol/L Carbon Dioxide (21.0-32.0) mmol/L Anion Gap (3-11) mmol/L BUN (7-18) mg/dL Creatinine (0.55-1.02) mg/dL Estimated GFR/1.73 m2 (mL/min/1.73m2) Glucose (74-106) mg/dL Calcium (8.5-10.1) mg/dL Total Bilirubin (0.2-1.0) mg/dL AST (15-37) U/L ALT (14-59) U/L Alkaline Phosphatase (46-116) U/L Total Protein (6.4-8.2) g/dL Albumin (3.4-5.0) g/dL Lipase (73-393) U/L Urine Color (Yellow) Yellow Urine Clarity (Clear) Clear Urine pH (5-8) 5.5 Ur Specific Derwent (1.005-1.025) 1.015 Urine Protein (Negative) mg/dL Negative Urine Ketones (Negative) mg/dL Negative Urine Blood (Negative) Negative Urine Nitrite (Negative) Negative Urine Bilirubin (Negative) Negative Urine Urobilinogen (Up TO 0.2) EU/dL 0.2 Ur Leukocyte Esterase (Negative) Negative Urine Glucose (Negative) mg/dL Negative Chlamydia/GC Source Cancelled Chlamydia DNA Probe Cancelled N.gonorrhoeae DNA Probe Cancelled HPI General Mode of arrival: ambulatory . Date/Time Provider Initiated Documentation: 05/03/20 15:35 . Limitations to Documentation: no limitations . Information obtained by: patient . HPI Narrative: Patient is a 54-year-old female with a history of anxiety and depression, panic attacks, obesity, diabetes, hypertension, migraine and GERD who presents to the ED with a complaint of right flank and back pain with radiation around to her right upper quadrant and bilateral lower abdomen for the past few years, worse over the past 2 months. Patient states she had an episode today while in the car decided to come here for evaluation. She states she called Dr. Hawk's office today and they advised her to come to the ED for evaluation. Of note, patient has had multiple ultrasounds, CAT scans and blood work for similar symptoms over the past 2 years. There is a note in the computer from nurse practitioner Arleen Chambers on 04/29/2020 for chronic pain issues and it was noted that patient expressed concern about being poisoned by her . Patient discusses this with me and states she would like blood work to make sure she is not being poisoned. Of note, patient was evaluated 1 year ago by me in the ED for a similar concern in which she thought her rehydrate her with a blue paste that was in his toolbox. Patient describes her abdominal pain is intermittent, sharp, radiating from her right flank around to her right upper quadrant and bilateral lower abdomen. She describes her lower abdominal pain is intermittent and burning. She states she also has pain with intercourse at times. She denies any vaginal discharge. She admits to nausea but states she has a good appetite and denies any vomiting. She states she has normal bowel movements. She denies any fever, cough, chest pain or shortness of breath. Related Data Home Medications Medication Instructions Recorded Confirmed cholecalciferol (vitamin D3) 2,000 unit PO DAILY 05/18/17 05/03/20 [Vitamin D3] magnesium gluconate 27.5 mg 27.5 mg PO BID 04/08/19 05/03/20 magnesium (500 mg) tablet potassium chloride 20 mEq 20 meq PO DAILY #90 tab-cap 05/12/19 05/03/20 tablet,extended release fluticasone furoate 27.5 1 spray PEEWEE DAILY PRN 07/18/19 05/03/20 mcg/actuation nasal spray,suspension hydrocortisone 2.5 % topical cream 1 applic TP BID-QID PRN #20 gm 07/30/19 05/03/20 metoprolol succinate 25 mg 25 mg PO HS 08/14/19 05/03/20 tablet,extended release 24 hr spironolactone 50 mg tablet 50 mg PO DAILY #90 tab-cap 08/21/19 05/03/20 sertraline 100 mg tablet 100 mg PO DAILY #90 tab-cap 09/04/19 05/03/20 erythromycin with ethanol 2 % 1 applic TP BID #30 gm 09/22/19 05/03/20 topical gel topiramate 50 mg tablet 50 mg PO QHS #30 tab 01/07/20 05/03/20 pantoprazole [Protonix] 40 mg PO DAILY #30 tab 04/16/20 05/03/20 metronidazole [Flagyl] 500 mg PO BID 7 Days #14 tab 05/03/20 Previous Rx's Medication Instructions Recorded potassium chloride 20 mEq 20 meq PO DAILY #90 tab-cap 05/12/19 tablet,extended release hydrocortisone 2.5 % topical cream 1 applic TP BID-QID PRN #20 gm 07/30/19 spironolactone 50 mg tablet 50 mg PO DAILY #90 tab-cap 08/21/19 sertraline 100 mg tablet 100 mg PO DAILY #90 tab-cap 09/04/19 erythromycin with ethanol 2 % 1 applic TP BID #30 gm 09/22/19 topical gel topiramate 50 mg tablet 50 mg PO QHS #30 tab 01/07/20 pantoprazole [Protonix] 40 mg PO DAILY #30 tab 04/16/20 metronidazole [Flagyl] 500 mg PO BID 7 Days #14 tab 05/03/20 Allergies Allergy/AdvReac Type Severity Reaction Status Date / Time Iodinated Contrast Media Allergy Severe Rash Verified 05/03/20 15:31 lisinopril AdvReac Headache Verified 05/03/20 15:31 General Stated Complaint: Abd Prob AISHA: 3 Review of Systems All systems reviewed & are unremarkable except as noted in HPI and below Constitutional Constitutional: Reports as per HPI, Denies chills and Denies fever(s) Eyes Eyes: Denies blurry vision ENT Ears, Nose, Mouth, and Throat: Denies dizziness, Denies sore throat and Denies throat swelling Cardiovascular Cardiovascular: Denies chest pain and Denies dyspnea Respiratory Respiratory: Denies cough and Denies dyspnea Gastrointestinal Gastrointestinal: Reports abdominal pain, Denies diarrhea and Denies vomiting Genitourinary Genitourinary: Denies hematuria and Denies dysuria Musculoskeletal Musculoskeletal: Reports back pain and Denies numbness Integumentary/Breasts Skin/Breast: Denies lesions and Denies rash Neurologic Neurologic: Denies dizziness, Denies localized weakness and Denies numbness Allergic/Immunologic Allergic/Immunologic: Denies throat swelling [facility] Medical History (Updated 05/03/20 @ 19:35 by Nga Ayon DO) Anxiety and depression Breast discharge 04/11/2018 [facility] [place] [facility] consult: normal, monitor Cerebral aneurysm [facility] [place] Neurosurgery 08/2019-pt. states she has not had the surgery for this yet Chronic back pain Chronic rhinitis Chronic upper back pain Diffuse cystic mastopathy of both breasts Dysgeusia Dysmenorrhea H/o iron deficiency with menses Essential hypertension Gastroesophageal reflux disease Hyperlipidemia (10/10/17) 08/2019 labs: 10-year ASCVD risk = ~5.3% --> no statin indicated at this time Hypertensive retinopathy of both eyes Hypokalemia Migraines Avoid triptans due to ICA aneurysms & vascular risk factors Obesity Polyp of cecum (~03/11/18) Pulmonary nodule, right (~06/2019) Incidental finding; repeat noncontrast chest CT 1 year Type 2 diabetes mellitus diet controlled Uterine fibroid Pt reports h/o, also seen on 04/11/2018 CT Family History Mother Diabetes Essential hypertension Father Heart disease Sister , Cancer Neoplasm Cancer Sister No problems noted. Brother No problems noted. Brother No problems noted. Daughter Heart disease Social History Smoking/Tobacco Use Status: Never Second Hand Exposure: Yes Smoking risk assessment performed?: Yes Alcohol Intake: former Drug use: Never Substance use type: does not use Adopted: No Caregiver/Support person: No Foster care: No Household members: spouse Number of Children: 3 Communication Needs: None current occupation: House cleaning Pets and animals: No Sexually active: Yes Do you think of yourself as: straight/heterosexual Current gender identity: female What type of physical activity do you participate in: walking Duration: 15-30 minutes/day Do you feel safe at home: Yes Do you feel safe in your relationship?: Yes Exam Const General: cooperative and no acute distress Orientation: alert, awake and oriented x3 HENMT Head: normal to inspection Face and sinus: normal facial exam Eyes General: appearance normal, both eyes and all related structures Pupils: PERRL EOM: EOM intact bilaterally Neck Neck: normal visual inspection and No submandibular swelling Lymphatic: no lymphadenopathy noted Chest Chest: normal inspection of the chest and no tenderness Resp Effort & Inspection: normal respiratory effort and able to speak in complete sentences Auscultation: clear to auscultation bilaterally Cardio Rate: regular rate Rhythm: regular rhythm GI Inspection: normal to inspection and obesity Palpation: soft, not firm, not rigid and tender suprapubicly Auscultation: normal bowel sounds External Female Exam: normal external appearance Speculum Exam - Cervix: normal appearance of the cervix Bimanual Exam- Vagina & Uterus: normal bimanual exam and no cervical motion tenderness Bimanual Exam- Adnexa, other: normal adnexae and no masses Back/Spine/Pelvis Back: no CVA tenderness Thoracic/Lumbar Spine: thoracic and lumbar spine normal to inspection Pelvis: no pain with anterior-posterior compression Skin General skin exam: no rashes or lesions noted Neuro General: patient alert, patient awake and patient oriented x3 Cognition: normal cognition Speech: speech normal Motor: muscle tone normal throughout Sensory Exam: no sensory deficits noted Extrem General: normal to inspection, full ROM, capillary refill normal, no calf tenderness bilaterally and no edema Psych Appearance: grossly normal Mental Status: mental status grossly normal Speech and Movement: speech and movement normal Affect: normal affect Course Vital Signs Vital signs: Vital Signs Temperature 97.5 F L 05/03/20 15:27 Pulse 79 05/03/20 15:27 Respiratory Rate 20 05/03/20 15:27 Blood Pressure 168/85 H 05/03/20 15:27 Pulse Oximetry 99 05/03/20 15:27 Temperature 97.5 F L 05/03/20 15:27 Temperature Source Skin 05/03/20 15:27 Pulse 79 05/03/20 15:27 Respiratory Rate 20 05/03/20 15:27 Respiratory Effort Non-Labored 05/03/20 15:34 Blood Pressure 152/78 H 05/03/20 15:32 Blood Pressure Position Sitting 05/03/20 15:27 Pulse Oximetry 99 05/03/20 15:27 Oxygen Delivery Method Room Air 05/03/20 15:27 Oxygen Flow Rate 0 05/03/20 15:27 Pain Level 5 05/03/20 15:27
--- NOTE | 2020-05-03 16:00 | DI.CT_ITS ---
EXAM: CT RENAL COLIC WO CLINICAL HISTORY: R flank pain w rad to RUQ. TECHNIQUE: Imaging Protocol: Axial computed tomography images with coronal and sagittal reformatted images were created and reviewed. COMPARISON: CT CT THORAX ABD/PEL CTA from 05/29/2019 FINDINGS: ABDOMEN: Lung Bases: Normal where visualized. Liver: Normal density. No measurable mass. Gallbladder and biliary tract: No radiodense calculus or biliary ductal dilation. Pancreas: Normal density, no abnormal calcifications or inflammatory process. Spleen: Normal. Kidneys: Normal size, contour and axis.There is a 2 mm nonobstructing stone in the lower pole of the right kidney. There is a stable 1.3 cm cyst in the inferior pole of the right kidney. Adrenal glands: No mass is seen. Lymph nodes: Within normal limits. Abdominal Aorta: Abdominal portion non-dilated. PELVIS: Bladder:Symmetric distention, no gross wall thickening. Bowel: No obstruction or bowel wall thickening. Appendix is unremarkable. Small hiatal hernia. Peritoneal cavity: No ascites, collection or mesenteric inflammatory response. No free air. Reproductive organs: Within normal limits. Bones: Within normal limits. Soft Tissues: Within normal limits. IMPRESSION: No evidence of obstructive uropathy. 2 mm nonobstructing stone in the lower pole of the right kidney. RADIATION DOSE DELIVERED: 1,000.76mGy.cm Total DLP DATA REPOSITORY: All CT scans at this facility are submitted to the National Radiology Data Registry (NRDR) Dose Index Registry (DIR) with the [employer] (A[employer]). RADIATION OPTIMIZATION: All CT scans at this facility use at least one of these dose optimization te chniques: automated exposure control; mA and/or kV adjustment per patient size (includes targeted exa ms where dose is matched to clinical indication); or iterative reconstruction.
--- NOTE | 2020-05-03 16:00 | DI.US_ITS ---
EXAM: US ABD PELV TRANSVAG NON-OB CLINICAL HISTORY: RUQ abd pain, R flank pain, lower abd pain TECHNIQUE: Ultrasound of the abdomen, pelvic, both abdmonal and tranvaginal was performed using sta ndard protocol. COMPARISON: No exams were available for comparison FINDINGS: LIVER: Normal. GALLBLADDER: No evidence of cholelithiasis. No evidence of wall thickening. No pericholecystic fluid identified. KIDNEYS: Kidneys are symmetric in size. No evidence of renal calculi. No evidence of hydronephrosis. No renal mass or cyst identified. BILIARY SYSTEM: Common bile duct measures < 7 mm. No intrahepatic biliary ductal dilation. GAMEZ'S SIGN: Negative. PANCREAS: Normal where visualized. SPLEEN: Not enlarged. ABDOMINAL AORTA AND IVC: Visualized portions normal caliber. ASCITES: None seen. UTERUS: Position: Anteverted. Size: 8.1 cm long by 4.0 cm AP x 5.9 cm transverse cm Endometrium: 0.8 cm. Normal for patient's menstrual status. Myometrium: 2 hypoechoic masses are seen in the anterior body of the uterus likely reflecting fibroid s. The larger measures 1.7 cm. Cervix: Unremarkable. OVARIES: Right: 2.4 x 1.6 x 1.5 cm Cyst or mass: None. Left: Not visualized transabdominally or transvaginally. No left adnexal mass is seen. DOPPLER: Color: Symmetric and uniform flow to the right ovary. No hyperemia. Duplex: Normal right ovarian arterial waveform visualized. CUL-DE-SAC: Free fluid: None. IMPRESSION: 1. Normal sonographic appearance of the upper abdomen. 2. Endometrial stripe within normal limits. 3. Fibroid uterus. 4. Unremarkable right ovary. The left ovary was not visualized sonographically. No left adnexal mas s is seen transabdominally or transvaginally. DATA REPOSITORY:
[2020-05-03] MEDS: Ketorolac 30 MG/ML VIAL IVP (16:14)
[2020-05-03] MEDS: Normal Saline 1,000 ML 1000 ML IV (16:14)
[2020-05-03 16:21] LABS: Abs Immature Grans 0.02 10^3/uL (0.0-0.06); Absolute Basophil Count 0.07 10^3/uL (0.0-0.2); Absolute Eosinophil Count 0.19 10^3/uL (0.0-0.7); Absolute Lymphocyte Count 4.06 10^3/uL (1.2-3.4); Absolute Monocyte Count 0.62 10^3/uL (0.1-0.8); Absolute Neutrophil Count 3.43 10^3/uL (1.2-6.7); Basophils % 0.8; Eosinophils % 2.3; HCT 36.1 % (36.0-46.0); HGB 11.7 g/dL (11.2-15.7); Immature Grans % 0.2; Lymphocytes % 48.4; MCH 28.8 pg (27.0-33.0); MCHC 32.4 % (32.0-36.0); MCV 88.9 fL (80-95); MPV 10.1 fL (8.0-11.0); Monocytes % 7.4; Neutrophils % 40.9; Nucleated RBC 0 %; Platelet Count 260 10^3/uL (130-400); RBC 4.06 10^6/uL (3.93-5.22); RDW 13.2 % (11.7-14.6); RDW-SD 43.3 fL; WBC 8.39 10^3/uL (4.4-10.8)
[2020-05-03 16:33] LABS: Lipase 189 U/L (73-393)
[2020-05-03 16:36] LABS: ALT 23 U/L (14-59); AST 14 U/L (15-37); Albumin 3.9 g/dL (3.4-5.0); Alkaline Phosphatase 100 U/L (46-116); Anion Gap 8.7 mmol/L (3-11); BUN 24 mg/dL (7-18); Bilirubin, Total 0.4 mg/dL (0.2-1.0); CO2 29.3 mmol/L (21.0-32.0); Calcium 9.4 mg/dL (8.5-10.1); Chloride 103 mmol/L (98-107); Glucose 95 mg/dL (74-106); Potassium 4.1 mmol/L (3.5-5.1); Sodium 141 mmol/L (136-145); Total Protein 8.1 g/dL (6.4-8.2)
[2020-05-03 17:03] VITALS: BP 128/70; PULSE 59; RESP 18; O2SAT 100
--- NOTE | 2020-05-03 17:15 | DI.VRAD_ITS ---
PROCEDURE INFORMATION: Exam: US Abdomen; Limited Exam date and time: 05/03/2020 4:45 PM Age: 54 years old Clinical indication: Pain; Other: Ruq/rlq/llq TECHNIQUE: Imaging protocol: US abdomen. Real time ultrasound with image documentation. Limited exam focused on the region of clinical interest. COMPARISON: CT ABDOMEN PELVIS W 05/13/2019 10:48 PM FINDINGS: Gallbladder: Gallbladder wall 2.2 mm Common bile duct: Common duct measures 2.6 mm Right kidney: Right kidney 9.9 cm. No hydronephrosis IMPRESSION: No acute process Dictated and Authenticated by: Hugo Fermin MD. Ordering:LAYNE Sylvester MD
--- NOTE | 2020-05-03 17:20 | DI.VRAD_ITS ---
PROCEDURE INFORMATION: Exam: CT Abdomen And Pelvis Without Contrast Exam date and time: 05/03/2020 4:52 PM Age: 54 years old Clinical indication: Abdominal pain; Right; Patient HX: R flank pain w rad to ruq TECHNIQUE: Imaging protocol: Computed tomography of the abdomen and pelvis without contrast. COMPARISON: CT ABDOMEN PELVIS W 05/13/2019 10:48 PM FINDINGS: Liver: Normal. No mass. Gallbladder and bile ducts: Normal. No calcified stones. No ductal dilation. Pancreas: Normal. No ductal dilation. Spleen: Normal. No splenomegaly. Adrenal glands: Normal. No mass. Kidneys and ureters: 13 mm simple cyst lateral right kidney There is no evidence of renal or ureteral calcifications. There is no evidence of renal or ureteral calcifications. Stomach and bowel: Unremarkable. No obstruction. No mucosal thickening. Appendix: Normal appendix. Intraperitoneal space: Unremarkable. No free air. No significant fluid collection. Vasculature: Unremarkable. No abdominal aortic aneurysm. Lymph nodes: Unremarkable. No enlarged lymph nodes. Urinary bladder: Unremarkable as visualized. Reproductive: Unremarkable as visualized. Bones/joints: Unremarkable. No acute fracture. Soft tissues: Unremarkable. IMPRESSION: No acute process Dictated and Authenticated by: Hugo Fermin MD. Ordering:LAYNE Sylvester MD
[2020-05-03 18:05] LABS: Bilirubin Negative (Negative); Blood Negative (Negative); Clarity Clear (Clear); Glucose Negative (Negative); Ketones Negative (Negative); Leukocyte Esterase Negative (Negative); Nitrite Negative (Negative); Specific Gravity 1.015 (1.005-1.025); Urobilinogen 0.2 EU/dL (Up TO 0.2); pH 5.5 (5-8)
[2020-05-03 19:55] VITALS: BP 148/68; PULSE 72; RESP 16; TEMP 37; O2SAT 99
[2020-05-03] MEDS: metroNIDAZOLE 500 MG TAB PO (19:55)
[2020-05-03 20:00] VITALS: BP 148/68; PULSE 72; RESP 16; TEMP 37; O2SAT 99
[2020-05-10 14:55] LABS: Chlamydia Result Negative (Negative); GC Result Negative (Negative)
== END 2020-05-03 20:05 | disposition home or self-care (01) ==
PROVIDERS: Emergency Provider Physician Assistant; PCP Nurse Practitioner Family
DX: R10.11 Right upper quadrant pain (principal); R10.30 Lower abdominal pain, unspecified; G89.29 Other chronic pain; N76.0 Acute vaginitis; B96.89 Other specified bacterial agents as the cause of diseases classified elsewhere
CPT/HCPCS: 36415; 80053; 83690; 87491; 87591; 96361; 96374; 99284; 74176; 76700; 76830; 76856; 81003; 85025; 87480; 87510; 87660; J1885

== ENCOUNTER 2020-06-24 16:12 | Outpatient (REF) | payer OTHER, SELFPAY ==
[2020-06-24 18:39] LABS: Microalb ug/mg Crea 4.7 ug/mg Cr
== END 2020-06-24 16:13 | disposition home or self-care (01) ==
LOC: LBN 16:12
PROVIDERS: PCP Nurse Practitioner Family; Visit Provider Nurse Practitioner Family
DX: E11.9 Type 2 diabetes mellitus without complications (principal)
CPT/HCPCS: 82043; 82570

== ENCOUNTER 2020-09-10 01:51 | Outpatient (CLI) | payer OTHER, SELFPAY ==
[2020-09-11 13:22] LABS: COVID-19 RT-PCR UVMMC Result Negative (Negative)
== END 2020-09-10 01:52 | disposition home or self-care (01) ==
LOC: LBO 01:52
PROVIDERS: PCP Nurse Practitioner Family; Visit Provider Nurse Practitioner Family
DX: Z20.822 Contact with and (suspected) exposure to COVID-19 (principal)
CPT/HCPCS: U0003

== ENCOUNTER 2020-12-06 11:04 | Outpatient (CLI) | payer OTHER, SELFPAY ==
--- NOTE | 2020-12-06 11:00 | RT.EKG_ITS ---
APPROVED REPORT Exam: Resting ECG Reason for Exam: assess rhythm/conduction Patient Location: O HR:73 bpm ECG Measurements Heart Rate 73 AXIS TX 166 P 38 QRSd 79 QRS -7 QT 375 T 65 QTc 413 Conclusion Sinus rhythm...normal P axis, V-rate 60- 99 Normal Electrocardiogram
== END 2020-12-06 11:05 | disposition home or self-care (01) ==
LOC: DI.KIM 11:04
PROVIDERS: PCP Nurse Practitioner Family; Visit Provider Nurse Practitioner Adult Health
DX: R55 Syncope and collapse (principal)
CPT/HCPCS: 93010

== ENCOUNTER 2020-12-06 16:14 | Outpatient (REF) | payer OTHER, SELFPAY ==
[2020-12-06 18:19] LABS: HGB 12.9 g/dL (11.2-15.7); MCH 28.8 pg (27.0-33.0); MCHC 30.7 % (32.0-36.0); MCV 93.8 fL (80-95); Platelet Count 303 10^3/uL (130-400); RBC 4.48 10^6/uL (3.93-5.22); RDW 13.1 % (11.7-14.6); RDW-SD 45.1 fL; WBC 7.91 10^3/uL (4.4-10.8)
[2020-12-06 19:08] LABS: ALT 24 U/L (14-59); AST 16 U/L (15-37); Albumin 4.3 g/dL (3.4-5.0); Alkaline Phosphatase 98 U/L (46-116); Anion Gap 6.5 mmol/L (3-11); BUN 20 mg/dL (7-18); Bilirubin, Total 0.6 mg/dL (0.2-1.0); CO2 31.5 mmol/L (21.0-32.0); CREATININE 1.1 mg/dL (0.55-1.02); Calcium 9.6 mg/dL (8.5-10.1); Chloride 105 mmol/L (98-107); Estimated GFR 51.76 (mL/min/1.73m2); Glucose 115 mg/dL (74-106); Potassium 4.2 mmol/L (3.5-5.1); Sodium 143 mmol/L (136-145); TSH (W/Ref FT4) 1.21 uIU/mL (0.36-3.74); Total Protein 8.2 g/dL (6.4-8.2); Vitamin B12 531 pg/mL (193-986)
== END 2020-12-06 16:15 | disposition home or self-care (01) ==
LOC: LBN 16:14
PROVIDERS: PCP Nurse Practitioner Family; Visit Provider Nurse Practitioner Adult Health
DX: R55 Syncope and collapse (principal); R10.11 Right upper quadrant pain; E11.9 Type 2 diabetes mellitus without complications; F41.9 Anxiety disorder, unspecified; F43.29 Adjustment disorder with other symptoms; T74.91XA Unspecified adult maltreatment, confirmed, initial encounter
CPT/HCPCS: 80053; 85027; 82607; 84443

== ENCOUNTER 2021-05-06 03:17 | Outpatient (CLI) | payer OTHER, SELFPAY ==
[2021-05-06 11:48] LABS: Source Nasal/Nares
[2021-05-06 14:25] LABS: COVID-19 PCR Negative (Negative)
== END 2021-05-06 03:18 | disposition home or self-care (01) ==
LOC: LBO 03:17
PROVIDERS: PCP Nurse Practitioner Family; Visit Provider Surgery
DX: Z20.822 Contact with and (suspected) exposure to COVID-19 (principal)
CPT/HCPCS: 87635

== ENCOUNTER 2021-05-09 07:45 | Day surgery (SDC) | payer OTHER, SELFPAY ==
--- NOTE | 2021-05-09 07:00 | W.COLOREPORT ---
Colonoscopy Report Date of procedure: 05/09/21 Pre-op diagnosis general: Colon Cancer Screening and Hx of colon polyps Post-op diagnosis procedure note: other (polyps) Procedure: Colonoscopy with polypectomy Surgeon: Yuliet Reis Anesthesia Type: General LMA/ETT Estimated blood loss (mL): 3 Pathology: other (ascending polyp and transverse polyp) Complications: None Disposition: same day Indications: Ms. Doron Irwin is a pleasant 55-year-old female who is here to discuss another colonoscopy.? Her last colonoscopy was in 2019.? She was found to have a tubular adenoma.? She denies any changes in bowel habits, melena, hematochezia, or family history of colon cancer.? She does have some abdominal pain which is lower abdomen and I suspect is more related to her uterus/ovaries.? She did say that she had an appointment with women's wellness but had to cancel because she ended up going home to [place].? She needs to reschedule that appointment.? She denies any discharge from the vagina. The procedure was explained in detail in layman's terms.? We reviewed the prep as well as Covid testing. Risks, benefits and complications have been reviewed. Complications include but are not limited to bleeding, pain, perforation, missed small lesion/polyp, sore throat, aspiration and adverse reaction to the medications. Questions were entertained and answered to their satisfaction and they wished to proceed. No guarantees were given or implied. Prep: Miralax/Dulcolax Procedure Start Time: 09:16 Procedure End Time: 09:44 Retraction Time: 17 minutes Findings: 2 small sessile polyps Procedure Description: After informed consent was obtained the patient was taken to the procedure room and placed in a left decubitous position. Monitors were applied and a time out was done. The patients name, date of , procedure, allergies to medications and metal in their body was reviewed. The patient was then sedated. Once sedated and comfortable a rectal exam was done. External exam was normal. Internal exam revealed a normal sphincter tone and no palpable masses. The scope was then introduced and retro-flexed. no internal hemorrhoids, polyps or masses were identified on retro-flexion. The scope was then advanced to the cecum without difficulty. The ileocecal vlave and appendiceal orifice were identified. The prep was adequate. The scope was then slowly retracted over 17 minutes back into the rectum. Polyps were removed with cold forceps in the ascending colon and transverse colon. There was no diverticulosis noted. The scope was removed and the patient was woken up and taken back to Same day surgery in stable condition. The patient tolerated the procedure well and there were no immediate complications. Follow up: The patient should follow up in 5 years unless they develop changes in bowel habits or other new gastrointestinal complaints.
--- NOTE | 2021-05-09 07:01 | W.PM.DSUDISC ---
Discharge Plan Disposition Patient Disposition: HOME Condition: Good Discharge Details Reason For Visit: Colonoscopy Attending Provider: Yuliet Reis Primary Care Provider: Angela Gleason Home Meds and New Rx's Prescriptions: Continued fluticasone furoate 27.5 mcg/actuation spray,suspension 1 spray PEEWEE DAILY PRN (Reason: nasal congestion) 0RF Rx Instructions: into each nostril magnesium gluconate 27.5 mg magne- sium (500 mg) tablet 27.5 mg PO BID 0RF hydrocortisone 2.5 % cream 1 applic TP BID-QID PRN (Reason: rash) Qty: 20 0RF potassium chloride 20 mEq tablet extended release 20 meq PO DAILY Qty: 90 3RF sertraline 100 mg tablet 100 mg PO DAILY Qty: 90 3RF spironolactone 50 mg tablet 50 mg PO DAILY Qty: 90 3RF cholecalciferol (vitamin D3) [Vitamin D3] 2,000 UNIT tablet 2,000 unit PO DAILY 0RF Discontinued bisacodyl [Dulcolax (bisacodyl)] 5 mg tablet,delayed release (DR/EC) 5 mg PO ONCE Qty: 4 0RF Rx Instructions: Take according to provider's instructions for colonoscopy prep. polyethylene glycol 3350 17 gram/dose powder 17 g PO ONCE Qty: 238 0RF Rx Instructions: To be taken as directed by prescriber's office for colonoscopy prep. Discharge Instructions Additional Instructions: Findings: 2 small polyps Follow up: Most likely 5 years Please call if you develop: fevers >101.5 Nausea or Vomiting Abdominal pain that is not transient Rectal bleeding that is more then a tbsp A hard abdomen and inability to pass gas DAY SURGERY UNIT POST ENDOSCOPY INSTRUCTIONS Instructions for everyone who is given Anesthesia: For your safety, please do the following for the next 24 Hours: a. Do not drive or operate dangerous equipment b. Do not drink alcohol beverages or use any recreational drugs for the first 24 hours or while taking pain medications. The medications in your body may have a reaction that can be dangerous. c. Do not make any important decisions or sign any important papers 1. Generally there are no restrictions on your activity after a day or so has gone by, but you may feel a bit fatigued for a few days. 2. After you arrive home you may have a light meal and return to a normal diet as you can tolerate it without feeling sick to your stomach. 3. After surgery, you may feel pain or discomfort. This should be only transient, but if it persists please contact your doctor. 4. If there are any questions regarding the findings of your procedure, please feel free to contact your doctor. 6. If you are unable to contact your doctor with a problem, contact the hospital at [phone]. 7. Continue all your regular medications unless directed otherwise. I understand the above instructions and have no questions. Signature of Patient or Responsible Adult Escort Date/Time Name of Responsible Adult Escort Signature of Nurse Date/Time Activity:: Activity as Tolerated Diet:: As Tolerated Discharge Orders Discharge Orders: Discharge Order (Routine); Ordered 05/09/21 Ordered By: Yuliet Reis
[2021-05-09 08:01] VITALS: BP 130/69; PULSE 58; RESP 16; TEMP 36.1; O2SAT 99
[2021-05-09] MEDS: Lactated Ringers 1,000 ML 80 ML IV (08:32)
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
[2021-05-09 09:04] VITALS: BMI 34.7
--- NOTE | 2021-05-09 09:25 | BOWEL_PTH ---
PATIENT: Kyree Yao LOC: [facility] U#:[id number] AGE/SX: 55/F ROOM: RE05/09/[address]: Yuliet Reis MD : 1965 BED: DIS: 05/09/2021 SPEC #: [id number] RECD: 05/09/21 11:59 STATUS: ARTEM RELeonardo #: [id number] DANIELE: 05/09/21 09:[address]: Yuliet Reis DEPT: Surgical Specimen RECD BY: Alejandra Seals ENTERED: 05/09/21 12:00 SP TYPE: Bowel OTHR DR: Angela Gleason APRN Tissues: 1 - BIOPSY BOWEL 2 - BIOPSY BOWEL Procedures: GROSS AND MICRO LEVEL 4 IMMUNOPEROXIDASE STAIN Comments: [id number]
[2021-05-09 09:53] VITALS: BP 103/54; PULSE 51; RESP 18; TEMP 36.1; O2SAT 100
--- NOTE | 2021-05-09 10:12 | W.ANESPOSTOP ---
Postoperative Evaluation Date, Time and Location Date Performed: 05/09/21 Time Performed: 09:55 Patient Location: Day Surgery Unit Vital Signs Most Recent Imported Vital Signs: Most Recent Vital Signs Temp Pulse Resp BP Pulse Ox 36.1 C L 51 L 18 103/54 L 100 05/09/21 09:53 05/09/21 09:53 05/09/21 09:53 05/09/21 09:53 05/09/21 09:53 Pain Score Most Recent Pain Score: Most Recent Pain Score Pain Level 0 05/09/21 08:01 Assessment Mental Status: Arousable with meaningful communication Airway and Respiratory Function: Patent airway with normal (patient baseline) respiratory exam Cardiovascular Function: Hemodynamically Stable Hydration Status: Adequately Hydrated Nausea & Vomiting: No Nausea or Vomiting Pain: Pt. Denies Any Pain Peripheral Nerve Block: Patient did not receive a nerve block
[2021-05-09 10:25] VITALS: BP 116/60; PULSE 55; RESP 18; TEMP 36.1; O2SAT 99
== END 2021-05-09 11:07 | disposition home or self-care (01) ==
LOC: SUR 07:45
PROVIDERS: PCP Nurse Practitioner Family; Visit Provider Surgery
PROC: 0DJD8ZZ Inspection of Lower Intestinal Tract, Via Natural or Artificial Opening Endoscopic (ICD-10-PCS; CPT 45378; principal; 2021-05-09 09:00)
DX: Z12.11 Encounter for screening for malignant neoplasm of colon (principal); Z86.010 Personal history of colon polyps; K63.5 Polyp of colon; K63.89 Other specified diseases of intestine
CPT/HCPCS: 45380; 88305; 88361

== ENCOUNTER 2021-08-22 03:41 | Outpatient (CLI) | payer OTHER, SELFPAY | END 2021-08-22 03:42 | disposition home or self-care (01) | LOC: DS 03:42 | PROVIDERS: PCP Nurse Practitioner Family; Visit Provider Dietitian, Registered ==

== ENCOUNTER → 2021-09-05 01:48 | Outpatient (CLI) | payer OTHER, SELFPAY ==
--- NOTE | 2021-09-05 16:00 | DI.MAMMO_ITS ---
Exam(s) MAMMO SCREENING EXAM: MAMMO SCREENING CLINICAL HISTORY: screening. TECHNIQUE: Bilateral full field digital CC and MLO mammographic images were obtained with 3D tomosyn thesis and utilizing computer aided detection (CAD). COMPARISON: Prior mammograms were reviewed, the most recent being April 2020. FINDINGS: The fibroglandular tissue pattern is again noted be moderately dense, this somewhat decreasing the se nsitivity mammogram for finding hidden underlying lesions. No new significant radiograph findings in the right breast. In the left breast posteriorly on CC view there is a 1.2 by 0.6 cm asymmetric density-possible nodule located 9 cm in from the nipple on CC view,, this unchanged from the prior mammograms and having the appearance of a probable benign lymph node. No malignant-appearing microcalcification groups in this region or elsewhere in either breast There is no significant architectural distortion nor skin thickening-retraction. IMPRESSION: Stable benign-appearing findings. No radiographic evidence of malignancy. BI-RADS Category 2 - Benign Findings Breast Density - Category C - Heterogeneously dense Breast density Category C or D implies that the patient has dense breast tissue. Dense breast tissue can make it harder to find cancer on a mammogram. Dense breast tissue is also associated with an incr eased risk of breast cancer. This information about the result of the mammogram report was provided to the patient to raise their awareness. Use this report when you speak with the patient about their risks for breast cancer, which includes their family history. At that time, you may recommend additional screening tests (Ultrasoun d or MRI) as these tests may add significant information. A negative radiographic report should not delay biopsy if a dominant or clinically suspicious mass is present. Up to ten percent of cancers are not identified on mammography. A negative report may reinforce clinical impression. Adenosis and dense breasts may obscure an underlying neoplasm. False positive reports average 6 to 10%. Patient will receive a letter notifying them of these results.
== END ==
PROVIDERS: PCP Nurse Practitioner Family; Visit Provider Obstetrics & Gynecology Gynecology
DX: Z12.31 Encounter for screening mammogram for malignant neoplasm of breast (principal); N60.82 Other benign mammary dysplasias of left breast
CPT/HCPCS: 77063; 77067

== ENCOUNTER 2021-09-28 02:37 | Outpatient (CLI) | payer OTHER, SELFPAY ==
[2021-09-28 07:55] LABS: Anion Gap 6.8 mmol/L (3-11); BUN 24 mg/dL (7-18); CO2 30.2 mmol/L (21.0-32.0); Calcium 8.9 mg/dL (8.5-10.1); Chloride 105 mmol/L (98-107); Estimated GFR 57.78 (mL/min/1.73m2); Glucose 126 mg/dL (74-106); Potassium 3.9 mmol/L (3.5-5.1); Sodium 142 mmol/L (136-145)
== END 2021-09-28 02:38 | disposition home or self-care (01) ==
LOC: LBO 02:37
PROVIDERS: Student in an Organized Health Care Education/Training Program; PCP Nurse Practitioner Family; Visit Provider Nurse Practitioner Family
DX: T50.2X5A Adverse effect of carbonic-anhydrase inhibitors, benzothiadiazides and other diuretics, initial encounter; E11.9 Type 2 diabetes mellitus without complications
CPT/HCPCS: 36415; 80048

== ENCOUNTER 2022-01-10 04:02 | Outpatient (CLI) | payer OTHER, SELFPAY ==
[2022-01-10 10:25] LABS: HCT 37.9 % (36.0-46.0); HGB 12.2 g/dL (11.2-15.7); MCH 28.8 pg (27.0-33.0); MCHC 32.2 % (32.0-36.0); MCV 89 fL (80-95); MPV 9.8 fL (8.0-11.0); Platelet Count 242 10^3/uL (130-400); RBC 4.24 10^6/uL (3.93-5.22); RDW 12.7 % (11.7-14.6); RDW-SD 41.5 fL; WBC 7.75 10^3/uL (4.4-10.8)
[2022-01-10 11:31] LABS: ALT 17 U/L (14-59); AST 16 U/L (15-37); Albumin 3.7 g/dL (3.4-5.0); Alkaline Phosphatase 84 U/L (46-116); Anion Gap 7.2 mmol/L (3-11); BUN 20 mg/dL (7-18); Bilirubin, Total 0.3 mg/dL (0.2-1.0); CO2 27.8 mmol/L (21.0-32.0); CREATININE 1.1 mg/dL (0.55-1.02); Calcium 9.2 mg/dL (8.5-10.1); Chloride 103 mmol/L (98-107); Estimated GFR 59.34 (mL/min/1.73m2); Glucose 111 mg/dL (74-106); Potassium 4.1 mmol/L (3.5-5.1); Sodium 138 mmol/L (136-145); TSH (W/Ref FT4) 1.82 uIU/mL (0.36-3.74); Total Protein 7.5 g/dL (6.4-8.2)
[2022-01-11 10:10] LABS: Lyme Ab w Rflx to Lyme Confirm Negative (Negative)
[2022-01-12 18:17] LABS: Anaplasma phagocytophilum Negative (Negative); B. miyamotoi PCR Negative (Negative); Babesia divergens/MO-1 Negative (Negative); Babesia duncani Negative (Negative); Babesia microti Negative (Negative); Ehrlichia chaffeensis Negative (Negative); Ehrlichia ewingii/canis Negative (Negative); Ehrlichia muris eauclairensis Negative (Negative)
== END 2022-01-10 04:03 | disposition home or self-care (01) ==
LOC: LBO 04:02
PROVIDERS: PCP Nurse Practitioner Family; Visit Provider Nurse Practitioner
DX: F41.8 Other specified anxiety disorders (principal); R53.83 Other fatigue; I10 Essential (primary) hypertension; M54.2 Cervicalgia; M79.18 Myalgia, other site; E11.9 Type 2 diabetes mellitus without complications
CPT/HCPCS: 36415; 80053; 85027; 87798; 84443; 86618

== ENCOUNTER 2022-05-05 16:23 | Outpatient (REF) | payer MEDICAID, SELFPAY ==
[2022-05-08 13:07] LABS: Chlamydia Result Negative (Negative); GC Result Negative (Negative)
== END 2022-05-05 16:24 | disposition home or self-care (01) ==
LOC: LBN 16:23
PROVIDERS: PCP Nurse Practitioner Family; Visit Provider Obstetrics & Gynecology
DX: N89.8 Other specified noninflammatory disorders of vagina; Z11.3 Encounter for screening for infections with a predominantly sexual mode of transmission
CPT/HCPCS: 87491; 87591; 87480; 87510; 87660

== ENCOUNTER 2022-07-27 11:58 | Outpatient (REF) | payer MEDICAID, SELFPAY ==
[2022-07-27 19:46] LABS: Microalb ug/mg Crea 2.7 ug/mg Cr
== END 2022-07-27 11:59 | disposition home or self-care (01) ==
LOC: LBN 11:58
PROVIDERS: PCP Nurse Practitioner Family; Visit Provider Nurse Practitioner Family
DX: E11.9 Type 2 diabetes mellitus without complications (principal); R10.9 Unspecified abdominal pain; R82.998 Other abnormal findings in urine
CPT/HCPCS: 82043; 82570; 87086

== ENCOUNTER 2022-11-09 10:28 | Outpatient (REF) | payer MEDICAID, SELFPAY | END 2022-11-09 10:29 | disposition home or self-care (01) | LOC: LBN 10:28 | PROVIDERS: PCP Nurse Practitioner Family; Visit Provider Obstetrics & Gynecology | DX: N89.8 Other specified noninflammatory disorders of vagina (principal) | CPT/HCPCS: 87480; 87510; 87660 ==

== ENCOUNTER 2022-12-22 04:05 | Outpatient (CLI) | payer MEDICAID, SELFPAY ==
[2022-12-22 07:31] LABS: Abs Immature Grans 0.01 10^3/uL (0.0-0.06); Absolute Basophil Count 0.06 10^3/uL (0.0-0.2); Absolute Lymphocyte Count 4.09 10^3/uL (1.2-3.4); Absolute Monocyte Count 0.47 10^3/uL (0.1-0.8); Absolute Neutrophil Count 3.04 10^3/uL (1.2-6.7); Basophils % 0.8; Eosinophils % 3.8; HCT 36.9 % (36.0-46.0); HGB 11.9 g/dL (11.2-15.7); Immature Grans % 0.1; Lymphocytes % 51.3; MCH 28.9 pg (27.0-33.0); MCHC 32.2 % (32.0-36.0); MCV 90 fL (80-95); MPV 10.4 fL (8.0-11.0); Monocytes % 5.9; Neutrophils % 38.1; Platelet Count 239 10^3/uL (130-400); RBC 4.12 10^6/uL (3.93-5.22); RDW 13.2 % (11.7-14.6); RDW-SD 43.6 fL; WBC 7.97 10^3/uL (4.4-10.8)
[2022-12-22 08:15] LABS: Lipase 42 U/L (16-77)
[2022-12-22 08:18] LABS: ALT 18 U/L (14-59); AST 15 U/L (15-37); Albumin 3.7 g/dL (3.4-5.0); Alkaline Phosphatase 83 U/L (46-116); Anion Gap 7.2 mmol/L (3-11); BUN 30 mg/dL (7-18); Bilirubin, Total 0.4 mg/dL (0.2-1.0); CO2 26.8 mmol/L (21.0-32.0); CREATININE 1.1 mg/dL (0.55-1.02); Calcium 9.4 mg/dL (8.5-10.1); Chloride 107 mmol/L (98-107); Estimated GFR 58.97 (mL/min/1.73m2); Glucose 119 mg/dL (74-106); Potassium 3.9 mmol/L (3.5-5.1); Sodium 141 mmol/L (136-145); Total Protein 7.6 g/dL (6.4-8.2)
[2022-12-24 11:27] LABS: Lab Add On Test DONE
[2022-12-24 11:40] LABS: Hemoglobin A1C 6.5 % (<5.7)
== END 2022-12-22 04:06 | disposition home or self-care (01) ==
LOC: LBO 04:05
PROVIDERS: Student in an Organized Health Care Education/Training Program; Absent Provider Nurse Practitioner Family; PCP Nurse Practitioner Family; Referring Provider Nurse Practitioner Family; Visit Provider Nurse Practitioner Family
DX: G89.29 Other chronic pain (principal); R73.09 Other abnormal glucose
CPT/HCPCS: 36415; 80053; 83690; 83036; 85025

== ENCOUNTER 2023-10-11 09:22 | Outpatient (REF) | payer MEDICAID, SELFPAY ==
--- NOTE | 2023-10-11 09:45 | PAPFT_PTH ---
PATIENT: Kyree Yao LOC: [facility] U#:[id number] AGE/SX: 57/F ROOM: RE10/11/[address]: Miranda Hawk : 1965 BED: DIS: 10/11/2023 SPEC #: [id number] RECD: 10/11/23 17:40 STATUS: ARTEM REQ #: [id number] DANIELE: 10/11/23 09:[address]: Miranda Hawk DEPT: [facility] Cytology RECD BY: Alejandra Seals ENTERED: 10/11/23 17:41 SP TYPE: PAPFT OTHR DR: Wilbert Feng DO Tissues: 1 - CX/ENDOCX FOR PAP SMEARS Procedures: PAP THIN PREP/[facility] Screening HPV DNA PROBE Comments: [id number] (HPV 16 & 18/45)
== END 2023-10-11 09:23 | disposition home or self-care (01) ==
LOC: LBN 09:22
PROVIDERS: PCP Family Medicine; Visit Provider Obstetrics & Gynecology Gynecology
DX: B37.31 Acute candidiasis of vulva and vagina (principal); N76.2 Acute vulvitis
CPT/HCPCS: 88142; 87480; 87510; 87624; 87660

== ENCOUNTER 2024-01-07 01:10 | Outpatient (CLI) | payer MEDICAID, SELFPAY ==
--- NOTE | 2024-01-07 08:30 | DI.US_ITS ---
Exam(s) US ABDOMEN EXAM: US ABDOMEN CLINICAL HISTORY: Discomfort when eating greasy food,biliary colic,k80.50 TECHNIQUE: Ultrasound abdomen performed using standard protocol. COMPARISON: CT CT RENAL COLIC WO from 05/03/2020 US US ABDOMEN from 11/14/2021 FINDINGS: ABDOMINAL AORTA AND IVC: Visualized portions normal caliber. PANCREAS: Normal where visualized. LIVER: The liver is mildly echogenic suggesting fatty infiltration. Hepatopetal flow in the Portal V ein. No evidence of a hepatic mass. GALLBLADDER:No evidence of cholelithiasis. No evidence of wall thickening. No pericholecystic fluid i dentified. BILIARY SYSTEM: Common bile duct measures < 7 mm. No intrahepatic biliary ductal dilation. GAMEZ'S SIGN: Negative. KIDNEYS: Kidneys are symmetric in size. No evidence of renal calculi. No evidence of hydronephrosis. No renal mass or cyst identified. SPLEEN: Not enlarged. ASCITES: None seen. IMPRESSION: Hepatic steatosis. DATA REPOSITORY:
== END 2024-01-07 01:30 ==
LOC: DI 01:12
PROVIDERS: PCP Family Medicine; Visit Provider Family Medicine
DX: K80.50 Calculus of bile duct without cholangitis or cholecystitis without obstruction (principal); K76.0 Fatty (change of) liver, not elsewhere classified
CPT/HCPCS: 76700

== ENCOUNTER 2024-07-15 17:13 | Emergency (ER) | payer MEDICAID, SELFPAY ==
[2024-07-15 17:15] VITALS: BP 170/92; PULSE 91; RESP 18; TEMP 37.2; O2SAT 98
--- NOTE | 2024-07-15 18:00 | DI.RAD_ITS ---
Exam(s) XR CHEST 2V PA LATERAL EXAM: XR CHEST 2V PA LATERAL CLINICAL HISTORY: Weakness TECHNIQUE: 2D digital imaging was performed of the chest. Two images were obtained. PA and lateral views were obtained. COMPARISON: CR,XR XR PORTABLE CHEST AP from 05/20/2019 FINDINGS: MEDIASTINUM: Normal. HEART: Normal. PULMONARY VASCULATURE: Normal. LUNGS: Clear. PLEURAL SPACE: No pleural effusion or pneumothorax. BONE:Within normal limits for the patient's age. OTHER FINDINGS:Normal. IMPRESSION: No acute pulmonary findings. DATA REPOSITORY: RADIATION DOSE DELIVERED:
--- NOTE | 2024-07-15 18:00 | RT.EKG_ITS ---
APPROVED REPORT Exam: Resting ECG Reason for Exam: Weakness Patient Location: E HR:59 bpm ECG Measurements Heart Rate 59 AXIS [place] 175 P 15 QRSd 84 QRS -10 QT 420 T 38 QTc 415 Conclusion Sinus bradycardia...rate< 60 Normal [place]/Interval Nonspecific ST-T changes There are no significant changes compared to prior EKG performed on 04/16/2020 at 15:39.
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
[2024-07-15 18:13] LABS: Bilirubin Negative (Negative); Blood Trace-lysed (Negative); Clarity Clear (Clear); Glucose Negative (Negative); Ketones Trace mg/dL (Negative); Leukocyte Esterase Trace (Negative); Nitrite Negative (Negative); Specific Gravity 1.025 (1.005-1.025); Urobilinogen 0.2 mg/dL (Up to 0.2); pH 5.5 (5-8)
[2024-07-15 18:20] LABS: Bacteria Few HPF (Negative); C & S Indicated? No; Crystals Negative HPF (Negative); Epithelial Cells Moderate HPF (Negative); Mucus Trace (Negative); RBC 0-2 HPF (0-2)
[2024-07-15 18:36] LABS: *AMPHETAMINES SCREEN URINE Negative (Negative); *BARBITURATES SCREEN URINE Negative (Negative); *BENZODIAZEPINES SCREEN URINE Negative (Negative); Cannabinoids THC Negative (Negative); Cocaine Screen,Urine Negative (Negative); METHADONE URINE SCREEN Negative (Negative); OPIATES URINE SCREEN Negative (Negative)
[2024-07-15 18:37] LABS: Tricyclic Antidepressants Negative (Negative)
[2024-07-15 19:26] LABS: Abs Immature Grans 0.02 10^3/uL (0.0-0.06); Absolute Basophil Count 0.07 10^3/uL (0.0-0.2); Absolute Eosinophil Count 0.26 10^3/uL (0.0-0.7); Absolute Lymphocyte Count 4.26 10^3/uL (1.2-3.4); Absolute Monocyte Count 0.45 10^3/uL (0.1-0.8); Absolute Neutrophil Count 3.44 10^3/uL (1.2-6.7); Basophils % 0.8 %; Eosinophils % 3.1 %; HCT 38.5 % (36.0-46.0); HGB 12.3 g/dL (11.2-15.7); Immature Grans % 0.2 %; Lymphocytes % 50.1 %; MCH 28.4 pg (27.0-33.0); MCHC 31.9 % (32.0-36.0); MCV 89 fL (80-95); MPV 9.9 fL (8.0-11.0); Monocytes % 5.3 %; Neutrophils % 40.5 %; Platelet Count 276 10^3/uL (130-400); RBC 4.33 10^6/uL (3.93-5.22); RDW 12.9 % (11.7-14.6); RDW-SD 42.2 fL
[2024-07-15 19:47] LABS: ALT 20 U/L (14-59); AST 17 U/L (15-37); Albumin 4.1 g/dL (3.4-5.0); Alkaline Phosphatase 100 U/L (46-116); Anion Gap 6.9 mmol/L (3-11); BUN 28 mg/dL (7-18); Bilirubin, Total 0.5 mg/dL (0.2-1.0); CO2 30.1 mmol/L (21.0-32.0); Calcium 9.7 mg/dL (8.5-10.1); Chloride 104 mmol/L (98-107); Estimated GFR 65.71 (mL/min/1.73m2); Glucose 117 mg/dL (74-106); Lipase 51 U/L (<78); Magnesium 1.8 mg/dL (1.8-2.4); Sodium 141 mmol/L (136-145); Troponin I 8 ng/L (<or=51)
[2024-07-15 19:50] LABS: ETHANOL BLOOD < 3.0 mg/dL (<10)
[2024-07-15] MEDS: Normal Saline 500 ML IV (21:29)
[2024-07-15 21:57] VITALS: BP 136/90; PULSE 69; RESP 18; O2SAT 100
== END 2024-07-15 22:08 | disposition home or self-care (01) ==
PROVIDERS: Emergency Provider Registered Nurse Emergency; PCP Family Medicine
DX: R53.1 Weakness (principal); E86.0 Dehydration; I10 Essential (primary) hypertension; E78.5 Hyperlipidemia, unspecified; E11.9 Type 2 diabetes mellitus without complications
CPT/HCPCS: 80053; 80307; 83690; 93005; 99285; 71046; 80320; 81003; 81015; 83735; 84484; 85025; 93010; 99284

== ENCOUNTER 2024-09-11 14:36 | Outpatient (CLI) | payer MEDICAID, SELFPAY ==
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
== END 2024-09-11 14:56 ==
LOC: DI 14:36
PROVIDERS: PCP Family Medicine; Visit Provider Family Medicine
DX: M25.512 Pain in left shoulder (principal); G89.11 Acute pain due to trauma
CPT/HCPCS: 73030